=== PATIENT | male | born 1970 | race Hispanic/Latino ===

== ENCOUNTER 2017-12-24 10:19 | Inpatient (IN) | payer MEDICAID ==
[2017-12-24 10:33] VITALS: BMI 31.7
--- NOTE | 2017-12-24 10:55 | C.PDOC ---
History Of Present Illness 47 y/o male presents to the ED via ambulance, transferred from [place] for psychiatric admission for depression. On arrival patient appears to be resting comfortably, and is calm and cooperative. Patient was already medically cleared at [place] and accepted to inpatient psychiatric unit. No other complaints offered at this time. Time Seen by Provider: 12/24/17 10:22 Chief Complaint (Nursing): Medical Clearance History Per: Patient History/Exam Limitations: no limitations Onset/Duration Of Symptoms: Days Current Symptoms Are (Timing): Still Present Severity: Mild Past Medical History Reviewed: Historical Data, Nursing Documentation, Vital Signs Vital Signs: Last Vital Signs Temp 98 F 12/24/17 10:21 Pulse 66 12/24/17 10:21 Resp 18 12/24/17 10:21 BP 115/70 12/24/17 10:21 Pulse Ox 97 12/24/17 10:21 - Medical History PMH: Back Problems, Depression Denies: Chronic Kidney Disease Surgical History: Hernia Repair - [facility] Procedures GROUP PSYCHOTHERAPY (12/08/17) INDIVIDUAL PSYCHOTHERAPY, BEHAVIORAL (12/08/17) Family History: States: Unknown Family Hx - Social History Hx Alcohol Use: Yes (alcohol occassionally) Hx Substance Use: No Review Of Systems Constitutional: Negative for: Fever, Chills Gastrointestinal: Negative for: Nausea, Vomiting Psych: Positive for: Depression Physical Exam - Physical Exam Appears: Non-toxic, No Acute Distress Skin: Warm, Dry Head: Normacephalic Eye(s): bilateral: Normal Inspection Neck: Normal ROM Chest: Symmetrical Cardiovascular: Rhythm Regular Respiratory: Normal Breath Sounds Gastrointestinal/Abdominal: Normal Exam Extremity: Bilateral: Atraumatic, Normal Color And Temperature, Normal ROM (x4) Neurological/Psych: Oriented x3, Normal Speech, Other (Calm, cooperative) Gait: Unable To Assess ED Course And Treatment O2 Sat by Pulse Oximetry: 97 (RA) Pulse Ox Interpretation: Normal Progress Note: Transferred for Psych admission. 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 Garcia. Admit orders placed. Disposition Discussed With : Dutch Garcia Doctor Will See Patient In The: Hospital Counseled Patient/Family Regarding: Diagnosis - Disposition Disposition: HOSPITALIZED Disposition Time: 10:25 Condition: STABLE - POA Present On Arrival: None - Clinical Impression Clinical Impression: Depression - PA / [employer] / Resident Statement MD/DO has reviewed & agrees with the documentation as recorded. - Scribe Statement The provider has reviewed the documentation as recorded by the Scribe (Zuleyma Grimes) All medical record entries made by the Scribe were at my direction and personally dictated by me. I have reviewed the chart and agree that the record accurately reflects my personal performance of the history, physical exam, medical decision making, and the department course for this patient. I have also personally directed, reviewed, and agree with the discharge instructions and disposition. Decision To Admit - Pt Status Changed To: Hospital Disposition Of: Inpatient - Admit Certification Admit to Inpatient:: After my assessment, the patient will require hospitalization for at least two midnights. This is because of the severity of symptoms shown, intensity of services needed, and/or the medical risk in this patient being treated as an outpatient. - InPatient: Physician Admission Certification: I certify that this patient requires 2 or more midnights of care for the following reason:: Depression - . Bed Request Type: Psychiatry Admitting Physician: Dutch Garcia Patient Diagnosis: Depression
--- NOTE | 2017-12-24 10:55 | C.PDOC ---
Time Seen by Provider: 12/24/17 10:22 Chief Complaint (Nursing): Medical Clearance Past Medical History Vital Signs: Last Vital Signs Temp 98 F 12/24/17 10:21 Pulse 66 12/24/17 10:21 Resp 18 12/24/17 10:21 BP 115/70 12/24/17 10:21 Pulse Ox 97 12/24/17 10:21 - Medical History PMH: Back Problems, Depression Denies: Chronic Kidney Disease Surgical History: Hernia Repair - [facility] Procedures GROUP PSYCHOTHERAPY (12/08/17) INDIVIDUAL PSYCHOTHERAPY, BEHAVIORAL (12/08/17) Family History: States: Unknown Family Hx - Social History Hx Alcohol Use: Yes (alcohol occassionally) Hx Substance Use: No ED Course And Treatment O2 Sat by Pulse Oximetry: 97 Disposition - Disposition Disposition: HOSPITALIZED Decision To Admit - Pt Status Changed To: Hospital Disposition Of: Inpatient - Admit Certification Admit to Inpatient:: After my assessment, the patient will require hospitalization for at least two midnights. This is because of the severity of symptoms shown, intensity of services needed, and/or the medical risk in this patient being treated as an outpatient. - InPatient: Physician Admission Certification: I certify that this patient requires 2 or more midnights of care for the following reason:: Depression - . Bed Request Type: Psychiatry Admitting Physician: Dutch Garcia Patient Diagnosis: Depression
--- NOTE | 2017-12-24 11:13 | PCM.BM ---
<Dina Peralta - Last Filed: 12/24/17 11:12> Treatment Plan Problems - Problems identified on initial assessmt Depression Date Initiated: 12/24/17 Time Initiated: 11:12 Assessment reference: NA Status: Active Treatment assets and liabiliti Patient Assests: cooperative, insightful, motivated, self-reliant, good past tx response, cognitively intact Patient Liabilities: poor support system, relationship conflicts, substance abuse - Milieu Protocol Maintain good personal hygiene: daily Encourage regular showers, daily Remind patient to perform daily oral care, daily Assist patient to perform ADL's Maintain personal safety: every shift Educate patient to report safety concerns to staff, every shift Monitor environment for contraband/sharps Medication safety: Monitor for expected outcome, potential side effects: every shift, Assess barriers to learning: every shift, Assess readiness for medication education: every shift <Crispin Owusu - Last Filed: 12/25/17 10:30> - Diagnosis (1) Depression Status: Acute Interventions: 12/25/17 10:30 * Assess/adjust medications daily and /or as needed * See patient on an individual basis 7x/week to assess symptoms of depression * Monitor for side effects & effectiveness of medications * <Alis Hair - Last Filed: 12/25/17 11:34> Family Contact Family involvement: Family/SO is involved Family contact: Patient declines to allow family contact at present - Goals for Treatment Patient goals for treatment: "I need an outpatient program." Discharge/Continuing Care - Education Needs Education Needs: Patient Medication, Patient Coping Skills - Discharge Discharge Criteria: Tolerates medication w/o severe side effects, Reduction of target symptoms Discharge to:: Home, With Family - Treatment Team Participation Discussed with Family/SO: No Was Patient/Family/SO present at Treatment Team Meeting: Yes
[2017-12-24] MEDS ORDERED: Bacitracin 500 Units/gm Oint Foilpak UD TOP ONE (16:31)
[2017-12-24] MEDS ORDERED: Bacitracin Ointment 30 GM TUBE TOP PRN (18:00)
--- NOTE | 2017-12-24 23:35 | PCM.PSYCH ---
Initial Psychiatric Evaluation - Initial Psychiatric Evaluation Type of Admission: Voluntary Legal Status: Capacity History of Present Illness and Precipitating Events: Pt is a 47 year old male who is and has 2 children that are 24 and 28 years old. 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 He is currently living with his brother. Pt was transferred to [facility] from [place] for psychiatric admission for depression and suicidal ideation. Pt states he is here for depression. He was diagnosed with major depressive d/o at [facility] one month ago. He has trouble sleeping because he hears voices and see shadows in the night. During the day he sometimes hears the voices as well. His appetite is intact but he denies feeling guilty, having trouble concentrating, or losing interest in things. Pt states he is depressed about not seeing his children because they live in [place] and he is not in contact with them. He is feeling hopeless, helpless, and worthless. He reports suicidal ideations with a plan to cut his wrists. He almost had a suicide attempt one time in the past but was stopped by a friend. He denies any homicidal ideations. Pt also denies use of any substances including heroin, cocaine, or marijuana. He smokes 1 pack of cigarettes a day. Though he used to drink plenty of alcohol in the past, he states he does not as much anymore. He never went to detoxification or rehabilitation for the alcohol in the past. He was hospitalized for a psychiatric condition once in the past in [place]. His plan after his stay in the hospital is to go home and follow up with a therapist. Past medical history: Spinal stenosis, sciatica Allergies: Naproxen, Motrin Surgical history: Hernia repair, gastric bypass Legal history: Denies Psychiatric history: Major depressive d/o Family psychiatric history: Niece with depressive d/o unspecified Current Medications: Active Medications Generic Name Dose Route Start Last Admin Trade Name Freq PRN Reason Stop Dose Admin Bacitracin 1 gm 12/24/17 18:00 12/24/17 18:30 Bacitracin TOP 1 gm Q6H PRN Administration Abrasion Haloperidol 5 mg 12/24/17 12:30 Haldol PO Q4H PRN Agitation Hydroxyzine HCl 50 mg 12/24/17 12:30 Atarax PO Q6H PRN Anxiety Influenza Virus Vaccine 60 mcg 12/26/17 10:00 Fluzone Quad [id number] IM 12/26/17 10:01 .ONCE ONE Pneumococcal Polyvalent Vaccine 0.5 ml 12/26/17 10:00 Pneumovax 23 Vaccine IM 12/26/17 10:01 .ONCE ONE Trazodone HCl 100 mg 12/24/17 22:00 12/24/17 21:09 Desyrel PO 100 mg HS PRN Administration Insomnia Past Psychiatric History - Past Psychiatric History Previous Treatment History: Inpatient Pertinent Medical Hx (Current Medical&Sleep Prob, Allergies): Allergies Allergy/AdvReac Type Severity Reaction Status Date / Time ibuprofen Allergy ITCHING Verified 12/24/17 10:24 naproxen [From Naprosyn] Allergy ITCHING Verified 12/24/17 10:24 traZODone [Desyrel] 200 mg PO HS 30 Days #60 tab 12/14/17 Review of Systems - Review of Systems All systems: reviewed and no additional remarkable complaints except - Psychiatric Psychiatric: Anxiety, Auditory Hallucinations, Depression, Hopelessness, Irritability, Suicidal Ideation Mental Status Examination - Personal Presentation Personal Presentation: Looks stated age - Affect Affect: Constricted, Depressed - Motor Activity Motor Activity: Calm - Reliability in Providing Information Reliability in Providing Information: Fair - Speech Speech: Disorganized - Mood Mood: Depressed, Anxious - Formal Thought Process Formal Thought Process: Hallucinations, Delusions, Paranoia - Hallucinations/Delusions Hallucinations: Auditory Delusions: Persecution - Obsessions/Compulsions Obsessions: No Compulsions: No - Cognitive Functions Orientation: Person, Place, Situation, Time Sensorium: Alert Attention/Concentration: Attentive Abstract Thinking: [place] Estimate of Intelligence: Below average Judgement: Imparied, as evidence by: Poor judgement, Imparied, as evidence by: Lack of insight into illness - Risk Risk: Suicidal, Diminished functioning - Limitations Limitations: Living alone DSM 5 DX - DSM 5 DSM 5 Diagnosis: Major depressive disorder recurrent severe with psychotic features - Recommended/Plan of Treatment Treatment Recommendations and Plan of Treatment: Major depressive disorder recurrent severe with psychotic features CBT Psychoeducation Supportive therapy, group therapy, individual therapy Hydroxyzine 25 mg by mouth every 6 hours when necessary Seroquel 50 mg PO QHS Trazodone 50 mg Wellbutrin 75 mg po Daily
--- NOTE | 2017-12-25 10:30 | PCM.PYCHPN ---
Psychiatric Progress Note - Psychiatric Progress Note Patient seen today, length of contact: 15 min Patient Chief Complaint: I am feeling depressed. Problems Identified/Issues Discussed: Patient seen and evaluated, chart reviewed and discussed with the nurse. Pt reports depressed mood, and reports feelings of hopelessness and helplessness. He remained isolated and withdrawn, and confined to his room. He reports auditory hallucinations, and paranoia. He appears paranoid and delusional. Patient is compliant with medications and denies any side effects. Symptoms are improving but pt needs more time to stabilize. Support and psychoeducation given. Medication Change: Yes Medical Record Reviewed: Yes Mental Status Examination - Cognitive Function Orientation: Person, Place, Situation, Time Memory: Intact Attention: WNL Concentration: Poor Association: WNL Fund of Knowledge: Poor - Mood Mood: Depressed, Anxious - Affect Affect: Constricted, Depressed - Speech Speech: Soft - Formal Thought Process Formal Thought Process: Hallucinations, Delusions, Paranoia - Suicidal Ideation Suicidal Ideation: No - Homicidal Ideation Homicidal Ideation: No Goal/Treatment Plan - Goal/Treatment Plan Need for Continued Stay: Severe depression anxiety, Severe functional impairment Progress Toward Problem(s) and Goals/Treatment Plan: Major depressive disorder recurrent severe with psychotic features CBT Psychoeducation Supportive therapy, group therapy, individual therapy Hydroxyzine 25 mg by mouth every 6 hours when necessary DC Seroquel 100 mg PO QHS Trazodone 100 mg Wellbutrin 75 mg po Daily Olanzapine 5 mg HS
[2017-12-26] MEDS ORDERED: Pneumococcal 23-Valent Vaccine IM ONE (10:00)
[2017-12-26] MEDS ORDERED: Influenza Vaccine 60 MCG/0.5 ML SYR (3 yr & up) IM ONE (10:00)
[2017-12-26 12:49] LABS: ALBUMIN 3.1 g/dL (3.5-5.0); ALT/SGPT 33 U/L (21-72); AST/SGOT 36 U/L (17-59); BLOOD UREA NITROGEN 15 mg/dL (9-20); CALCIUM 8.2 mg/dl (8.6-10.4); GFR NON-AFRICAN AMERICAN > 60
[2017-12-26 12:56] LABS: BASO # 0.1 K/uL (0.0-0.2); BASO % 0.9 % (0.0-2.0); EOS # 0.1 K/uL (0.0-0.7); EOS % 2.3 % (0.0-4.0); HEMOGLOBIN 11.2 g/dL (12.0-18.0); LYMPH # 0.7 K/uL (1.0-4.3); LYMPH % 11.7 % (20.0-40.0); MEAN CELL VOLUME 83.7 fL (80.0-94.0); MEAN CORPUSCULAR HEMOGLOBIN 27.8 pg (27.0-31.0); MEAN CORPUSCULAR HGB CONC 33.2 g/dL (33.0-37.0); MEAN PLATELET VOLUME 7.6 fL (7.2-11.7); MONO # 0.6 K/uL (0.0-0.8); MONO % 9.7 % (0.0-10.0); NEUT # 4.6 K/uL (1.8-7.0); NEUT % 75.4 % (50.0-75.0); RBC 4.01 Mil/uL (4.40-5.90); RED CELL DISTRIBUTION WIDTH 18.9 % (11.5-14.5); WHITE BLOOD COUNT 6.2 K/uL (4.8-10.8)
--- NOTE | 2017-12-26 14:44 | CP.PCM.CON ---
<Florin Hannah - Last Filed: 12/26/17 14:39> History of Present Illness - History of Present Illness History of Present Illness: Florin Hannah PGY1 Consult Note for Dr. Mahmood Pt is a 47yo M with no PMH admitted for treatment of depression w/psychotic features. Pt reports a wound on the left elbow x2 days. He reports it started out as red and then began burning. He now reports associated white pus draining from the elbow. He denies trauma or previous abrasion in the area. He denies fever, chills, abdominal pain, nausea, vomiting, chest pain, shorteness of breath. SxH: hernia repoair, gastric bypass SocH: 5 pack/yr smoking history, occasional etoh use, denies drug use Allergies: naproxen and asa --> hives PMD: none Review of Systems - Review of Systems Review of Systems: as per HPI Past Patient History - Infectious Disease Hx of Infectious Diseases: None - Tetanus Immunizations Tetanus Immunization: Unknown - Past Medical History & Family History Past Medical History?: Yes - Past Social History Smoking Status: Heavy Smoker > 10 Cigarettes Daily - CARDIAC Hx Cardiac Disorders: No - PULMONARY Hx Respiratory Disorders: No - NEUROLOGICAL Hx Neurological Disorder: No - HEENT Hx HEENT Problems: No - RENAL Hx Chronic Kidney Disease: No - ENDOCRINE/METABOLIC Hx Endocrine Disorders: No - HEMATOLOGICAL/ONCOLOGICAL Hx Blood Disorders: No - INTEGUMENTARY Hx Dermatological Problems: No - MUSCULOSKELETAL/RHEUMATOLOGICAL Hx Musculoskeletal Disorders: Yes Hx Spinal Stenosis: Yes Other/Comment: spinal stenosis - GASTROINTESTINAL Hx Gastrointestinal Disorders: No - GENITOURINARY/GYNECOLOGICAL Hx Genitourinary Disorders: No - PSYCHIATRIC Hx Substance Use: No - SURGICAL HISTORY Hx Surgeries: Yes Hx Herniorrhaphy: Yes Hx Orthopedic Surgery: Yes (rt shoulder) - ANESTHESIA Hx Anesthesia: Yes Hx Anesthesia Reactions: No Meds Allergies/Adverse Reactions: Allergies Allergy/AdvReac Type Severity Reaction Status Date / Time ibuprofen Allergy ITCHING Verified 12/24/17 10:24 naproxen [From Naprosyn] Allergy ITCHING Verified 12/24/17 10:24 - Medications Medications: Current Medications Aripiprazole (Abilify) 15 mg PO DAILY [facility] Bacitracin (Bacitracin) 1 gm TOP Q6H PRN PRN Reason: Abrasion Last Admin: 12/24/17 18:30 Dose: 1 gm Bupropion HCl (Wellbutrin) 150 mg PO DAILY [facility] Last Admin: 12/26/17 09:12 Dose: 150 mg Clindamycin HCl (Cleocin) 600 mg PO TID [facility]; Protocol Haloperidol (Haldol) 5 mg PO Q4H PRN PRN Reason: Agitation Last Admin: 12/25/17 09:33 Dose: 5 mg Hydroxyzine HCl (Atarax) 50 mg PO Q6H PRN PRN Reason: Anxiety Last Admin: 12/25/17 09:33 Dose: 50 mg Trazodone HCl (Desyrel) 100 mg PO HS PRN PRN Reason: Insomnia Last Admin: 12/25/17 21:28 Dose: 100 mg Physical Exam - Constitutional Appears: Well, No Acute Distress - Head Exam Head Exam: ATRAUMATIC, NORMOCEPHALIC - Eye Exam Eye Exam: EOMI, Normal appearance Pupil Exam: NORMAL ACCOMODATION - ENT Exam ENT Exam: Mucous Membranes Moist, Normal Exam - Neck Exam Neck exam: Positive for: Normal Inspection - Respiratory Exam Respiratory Exam: Clear to Auscultation Bilateral, NORMAL BREATHING PATTERN. absent: Rales, Rhonchi, Wheezes - Cardiovascular Exam Cardiovascular Exam: REGULAR RHYTHM, +S1, +S2. absent: Gallop, Rubs, Systolic Murmur - GI/Abdominal Exam GI & Abdominal Exam: Normal Bowel Sounds, Soft. absent: Distended, Firm, Tenderness - Extremities Exam Additional comments: LUE: erythematous, edematous abscess on L elbow with 4 punctums draining white pus. warm to touch. - Neurological Exam Neurological exam: Alert, Oriented x3 Results - Vital Signs Recent Vital Signs: Last Vital Signs Temp 97.6 F 12/26/17 06:43 Pulse 57 L 12/26/17 06:43 Resp 19 12/26/17 06:43 BP 102/62 12/26/17 06:43 Pulse Ox 97 12/24/17 16:18 - Labs Result Diagrams: 12/26/17 12:30 12/26/17 12:30 Labs: Laboratory Results - last 24 hr 12/26/17 12/26/17 12:30 12:30 WBC 6.2 RBC 4.01 L Hgb 11.2 L Hct 33.6 L MCV 83.7 MCH 27.8 MCHC 33.2 RDW 18.9 H Plt Count 279 MPV 7.6 Neut % (Auto) 75.4 H Lymph % (Auto) 11.7 L Pershing % (Auto) 9.7 Eos % (Auto) 2.3 Baso % (Auto) 0.9 Neut # (Auto) 4.6 Lymph # (Auto) 0.7 L Pershing # (Auto) 0.6 Eos # (Auto) 0.1 Baso # (Auto) 0.1 Sodium 132 Potassium 4.2 Chloride 104 Carbon Dioxide 19 L Anion Gap 13 BUN 15 Creatinine 0.8 Est GFR ( Amer) > 60 Est GFR (Non-Af Amer) > 60 Random Glucose 221 H Calcium 8.2 L Phosphorus 3.0 Magnesium 1.7 Total Bilirubin 0.3 AST 36 ALT 33 Alkaline Phosphatase 76 Total Protein 6.0 L Albumin 3.1 L Globulin 3.0 Albumin/Globulin Ratio 1.0 Assessment & Plan - Assessment and Plan (Free Text) Assessment: 43yo M with no PMH admitted for psychiatric treatment with L elbow wound, medicine consulted for evaluation. Plan: Carbuncle - L elbow, draining white pus - pt afebrile, no leukocytosis - wound Cx: MRSA, sensitive to clinda - start clinda 600mg PO TID - f/u AM CBC - Gen Sx consulted: Dr. Lloyd Psychiatric History - continue with psychiatric meds and care Pt seen and case reviewed with Dr. Mahmood <Hannah Mahmood - Last Filed: 12/26/17 15:40> Meds - Medications Medications: Current Medications Aripiprazole (Abilify) 15 mg PO DAILY [facility] Bacitracin (Bacitracin) 1 gm TOP Q6H PRN PRN Reason: Abrasion Last Admin: 12/24/17 18:30 Dose: 1 gm Bupropion HCl (Wellbutrin) 150 mg PO DAILY [facility] Last Admin: 12/26/17 09:12 Dose: 150 mg Clindamycin HCl (Cleocin) 600 mg PO TID [facility]; Protocol Haloperidol (Haldol) 5 mg PO Q4H PRN PRN Reason: Agitation Last Admin: 12/25/17 09:33 Dose: 5 mg Hydroxyzine HCl (Atarax) 50 mg PO Q6H PRN PRN Reason: Anxiety Last Admin: 12/25/17 09:33 Dose: 50 mg Trazodone HCl (Desyrel) 100 mg PO HS PRN PRN Reason: Insomnia Last Admin: 12/25/17 21:28 Dose: 100 mg Results - Vital Signs Recent Vital Signs: Last Vital Signs Temp 97.6 F 12/26/17 06:43 Pulse 57 L 12/26/17 06:43 Resp 19 12/26/17 06:43 BP 102/62 12/26/17 06:43 Pulse Ox 97 12/24/17 16:18 - Labs Result Diagrams: 12/26/17 12:30 12/26/17 12:30 Labs: Laboratory Results - last 24 hr 12/26/17 12/26/17 12:30 12:30 WBC 6.2 RBC 4.01 L Hgb 11.2 L Hct 33.6 L MCV 83.7 MCH 27.8 MCHC 33.2 RDW 18.9 H Plt Count 279 MPV 7.6 Neut % (Auto) 75.4 H Lymph % (Auto) 11.7 L Pershing % (Auto) 9.7 Eos % (Auto) 2.3 Baso % (Auto) 0.9 Neut # (Auto) 4.6 Lymph # (Auto) 0.7 L Pershing # (Auto) 0.6 Eos # (Auto) 0.1 Baso # (Auto) 0.1 Sodium 132 Potassium 4.2 Chloride 104 Carbon Dioxide 19 L Anion Gap 13 BUN 15 Creatinine 0.8 Est GFR ( Amer) > 60 Est GFR (Non-Af Amer) > 60 Random Glucose 221 H Calcium 8.2 L Phosphorus 3.0 Magnesium 1.7 Total Bilirubin 0.3 AST 36 ALT 33 Alkaline Phosphatase 76 Total Protein 6.0 L Albumin 3.1 L Globulin 3.0 Albumin/Globulin Ratio 1.0 Attending/Attestation - Attestation I have personally seen and examined this patient.: Yes I have fully participated in the care of the patient.: Yes I have reviewed all pertinent clinical information: Yes Notes (Text): Seen and examined patient has elbow abscess,need to be drained no fever,no h/o trauma Start on clindamycin we will follow
--- NOTE | 2017-12-26 14:59 | RAD ---
Date of service: 12/26/2017 PROCEDURE: Radiographs of the left elbow. HISTORY: wound draining COMPARISON: No prior. FINDINGS: BONES: No acute displaced fracture nor dislocation. No obvious cortical destructive changes there is a very small osteophyte and/or enthesophyte seen arising from the lateral epicondyle.. JOINTS: Suspect minimal osteoarthritis. SOFT TISSUES: There is mild soft tissue swelling over the olecranon possibly representing a olecranon bursitis. No subcutaneous emphysema JOINT EFFUSION: None. OTHER FINDINGS: None IMPRESSION: There is mild soft tissue swelling over the olecranon possibly representing a olecranon bursitis. No subcutaneous emphysema
--- NOTE | 2017-12-26 23:11 | CP.PCM.CON ---
<Sasha Valdovinos - Last Filed: 12/26/17 23:05> History of Present Illness - History of Present Illness History of Present Illness: Surgery Consult: Dr. Lloyd Pt is a 47M with PMHx significant for depression who is currently admitted to the psych unit at . Pt states that 3 days ago he noticed some redness and swelling around his left elbow, which eventually became very painful. Pt describ es it as a small pimple that eventually got bigger and more swollen. He also noticed purulent discharge from the area. Pt denies any trauma to his elbow and states he has never had this happen before. Surgery consulted to evaluate. Wound cultures obtained from the purulent fluid show +MRSA. Currently, pt is comfortable and states pain is well controlled. States it has been draining spontaneously and denies any fevers/chills, nausea/vomiting, chest pain or SOB. PMHx: depression PSHx: gastric bypass & incisional hernia repair, R shoulder sx SocialHx: 1/2PPD x 10+ yrs, occasional EtOH, denies drugs ALL: ibuprofen/naproxen (hives) Review of Systems - Review of Systems All systems: reviewed and no additional remarkable complaints except (as per HPI) Past Patient History - Infectious Disease Hx of Infectious Diseases: None - Tetanus Immunizations Tetanus Immunization: Unknown - Past Medical History & Family History Past Medical History?: Yes - Past Social History Smoking Status: Heavy Smoker > 10 Cigarettes Daily - CARDIAC Hx Cardiac Disorders: No - PULMONARY Hx Respiratory Disorders: No - NEUROLOGICAL Hx Neurological Disorder: No - HEENT Hx HEENT Problems: No - RENAL Hx Chronic Kidney Disease: No - ENDOCRINE/METABOLIC Hx Endocrine Disorders: No - HEMATOLOGICAL/ONCOLOGICAL Hx Blood Disorders: No - INTEGUMENTARY Hx Dermatological Problems: No - MUSCULOSKELETAL/RHEUMATOLOGICAL Hx Musculoskeletal Disorders: Yes Hx Spinal Stenosis: Yes Other/Comment: spinal stenosis - GASTROINTESTINAL Hx Gastrointestinal Disorders: No - GENITOURINARY/GYNECOLOGICAL Hx Genitourinary Disorders: No - PSYCHIATRIC Hx Depression: Yes Hx Substance Use: No - SURGICAL HISTORY Hx Surgeries: Yes Hx Herniorrhaphy: Yes Hx Orthopedic Surgery: Yes (rt shoulder) - ANESTHESIA Hx Anesthesia: Yes Hx Anesthesia Reactions: No Meds Allergies/Adverse Reactions: Allergies Allergy/AdvReac Type Severity Reaction Status Date / Time ibuprofen Allergy ITCHING Verified 12/24/17 10:24 naproxen [From Naprosyn] Allergy ITCHING Verified 12/24/17 10:24 - Medications Medications: Current Medications Aripiprazole (Abilify) 15 mg PO DAILY [facility] Bacitracin (Bacitracin) 1 gm TOP Q6H PRN PRN Reason: Abrasion Last Admin: 12/24/17 18:30 Dose: 1 gm Bupropion HCl (Wellbutrin) 150 mg PO DAILY [facility] Last Admin: 12/26/17 09:12 Dose: 150 mg Clindamycin HCl (Cleocin) 600 mg PO TID [facility]; Protocol Last Admin: 12/26/17 17:15 Dose: 600 mg Haloperidol (Haldol) 5 mg PO Q4H PRN PRN Reason: Agitation Last Admin: 12/25/17 09:33 Dose: 5 mg Hydroxyzine HCl (Atarax) 50 mg PO Q6H PRN PRN Reason: Anxiety Last Admin: 12/25/17 09:33 Dose: 50 mg Trazodone HCl (Desyrel) 100 mg PO HS PRN PRN Reason: Insomnia Last Admin: 12/26/17 21:35 Dose: 100 mg Physical Exam - Constitutional Appears: Well, No Acute Distress - Head Exam Head Exam: ATRAUMATIC, NORMOCEPHALIC - Eye Exam Eye Exam: Normal appearance - ENT Exam ENT Exam: Mucous Membranes Moist - Respiratory Exam Respiratory Exam: NORMAL BREATHING PATTERN - Cardiovascular Exam Cardiovascular Exam: RRR - Extremities Exam Additional comments: left elbow with erythema & fluctuant 4x5 cm abscess with surrounding induration; purulent drainage noted. Tender to palpation. Range of motion intact at the elbow - Neurological Exam Neurological exam: Alert, Oriented x3 - Skin Skin Exam: Dry, Warm Results - Vital Signs Recent Vital Signs: Last Vital Signs Temp 97.6 F 12/26/17 06:43 Pulse 69 12/26/17 15:59 Resp 19 12/26/17 06:43 BP 103/65 12/26/17 15:59 Pulse Ox 97 12/24/17 16:18 - Labs Result Diagrams: 12/26/17 12:30 12/26/17 12:30 Labs: Laboratory Results - last 24 hr 12/26/17 12/26/17 12:30 12:30 WBC 6.2 RBC 4.01 L Hgb 11.2 L Hct 33.6 L MCV 83.7 MCH 27.8 MCHC 33.2 RDW 18.9 H Plt Count 279 MPV 7.6 Neut % (Auto) 75.4 H Lymph % (Auto) 11.7 L [place] % (Auto) 9.7 Eos % (Auto) 2.3 Baso % (Auto) 0.9 Neut # (Auto) 4.6 Lymph # (Auto) 0.7 L [place] # (Auto) 0.6 Eos # (Auto) 0.1 Baso # (Auto) 0.1 Sodium 132 Potassium 4.2 Chloride 104 Carbon Dioxide 19 L Anion Gap 13 BUN 15 Creatinine 0.8 Est GFR ( Amer) > 60 Est GFR (Non-Af Amer) > 60 Random Glucose 221 H Calcium 8.2 L Phosphorus 3.0 Magnesium 1.7 Total Bilirubin 0.3 AST 36 ALT 33 Alkaline Phosphatase 76 Total Protein 6.0 L Albumin 3.1 L Globulin 3.0 Albumin/Globulin Ratio 1.0 - Imaging and Cardiology X-ray left elbow Status: Image reviewed by me, Report reviewed by me Assessment & Plan - Assessment and Plan (Free Text) Assessment: 47M with abscess of L elbow; possible olecranon bursitis Plan: - cont Clinda 600mg PO - recommend eval by ortho for drainage and further recs - MRI of the elbow to r/o osteomyelitis - d/w Dr. Lloyd <Nic Lloyd - Last Filed: 01/02/18 19:40> Meds - Medications Medications: Current Medications Aripiprazole (Abilify) 15 mg PO DAILY [facility] Last Admin: 01/02/18 10:06 Dose: 15 mg Bacitracin (Bacitracin) 1 gm TOP Q6H PRN PRN Reason: Abrasion Last Admin: 12/24/17 18:30 Dose: 1 gm Bupropion HCl (Wellbutrin) 150 mg PO DAILY [facility] Last Admin: 01/02/18 10:07 Dose: 150 mg Clindamycin HCl (Cleocin) 300 mg PO TID [facility]; Protocol Stop: 01/08/18 23:55 Last Admin: 01/02/18 18:22 Dose: 300 mg Emollient Ointment (Vaseline Oint) 5 gm TOP Q4H PRN PRN Reason: Dry skin Last Admin: 01/01/18 12:15 Dose: 5 gm Folic Acid (Folic Acid) 1 mg PO DAILY [facility] Last Admin: 01/02/18 10:07 Dose: 1 mg Gabapentin (Neurontin) 300 mg PO BID [facility] Last Admin: 01/02/18 18:22 Dose: 300 mg Haloperidol (Haldol) 5 mg PO Q4 PRN PRN Reason: Agitation Hydroxyzine HCl (Atarax) 50 mg PO Q6 PRN PRN Reason: Anxiety Multivitamins (Hexavitamin) 1 tab PO DAILY [facility] Last Admin: 01/02/18 10:07 Dose: 1 tab Nicotine (Nicoderm Cq) 1 patch TD DAILY [facility] Last Admin: 01/02/18 10:06 Dose: 1 patch Oxycodone/Acetaminophen (Percocet 5/325 Mg Tab) 1 tab PO Q4H PRN PRN Reason: Pain Stop: 01/03/18 21:02 Last Admin: 01/02/18 14:54 Dose: 1 tab Saccharomyces Boulardii (Florastor) 250 mg PO BID [facility] Last Admin: 01/02/18 18:22 Dose: 250 mg Thiamine HCl (Vitamin B1 Tab) 100 mg PO DAILY [facility] Last Admin: 01/02/18 10:12 Dose: 100 mg Trazodone HCl (Desyrel) 150 mg PO HS PRN PRN Reason: Insomnia Last Admin: 01/01/18 22:13 Dose: 150 mg Vitamin A (Vitamin A & D Oint Ud Foilpak) 1 ea TOP Q8 PRN PRN Reason: Dry skin Results - Vital Signs Recent Vital Signs: Last Vital Signs Temp 97.8 F 01/02/18 15:00 Pulse 84 01/02/18 15:00 Resp 20 01/02/18 15:00 BP 105/73 01/02/18 15:00 Pulse Ox 97 01/02/18 15:00 - Labs Result Diagrams: 01/02/18 08:11 01/02/18 08:11 Labs: Laboratory Results - last 24 hr 01/01/18 01/01/18 01/01/18 17:39 21:29 21:30 WBC RBC Hgb Hct MCV MCH MCHC RDW Plt Count MPV ESR Sodium Potassium Chloride Carbon Dioxide Anion Gap BUN Creatinine Est GFR ( Amer) Est GFR (Non-Af Amer) POC Glucose (mg/dL) 131 H 64 L 64 L Random Glucose Calcium Total Bilirubin AST ALT Alkaline Phosphatase Total Protein Albumin Globulin Albumin/Globulin Ratio 11/16/18 11/17/18 11/17/18 22:00 06:59 08:11 WBC 3.3 L RBC 4.33 L Hgb 11.9 L Hct 36.1 MCV 83.3 MCH 27.5 MCHC 33.0 RDW 19.4 H Plt Count 287 MPV 7.5 ESR 28 H Sodium Potassium Chloride Carbon Dioxide Anion Gap BUN Creatinine Est GFR ( Amer) Est GFR (Non-Af Amer) POC Glucose (mg/dL) 207 H 91 Random Glucose Calcium Total Bilirubin AST ALT Alkaline Phosphatase Total Protein Albumin Globulin Albumin/Globulin Ratio 01/02/18 01/02/18 01/02/18 08:11 11:51 16:29 WBC RBC Hgb Hct MCV MCH MCHC RDW Plt Count MPV ESR Sodium 136 Potassium 3.7 Chloride 101 Carbon Dioxide 22 Anion Gap 16 BUN 11 Creatinine 0.8 Est GFR ( Amer) > 60 Est GFR (Non-Af Amer) > 60 POC Glucose (mg/dL) 94 100 Random Glucose 51 L Calcium 8.6 Total Bilirubin 0.2 AST 58 ALT 52 Alkaline Phosphatase 80 Total Protein 6.5 Albumin 3.4 L Globulin 3.1 Albumin/Globulin Ratio 1.1 Attending/Attestation - Attestation I have personally seen and examined this patient.: Yes I have fully participated in the care of the patient.: Yes I have reviewed all pertinent clinical information: Yes Notes (Text): Pt was seen and examined at bedside Agree with above note and assessment Pt with PMH of Depression and left elbow wound and drainage Left elbow: Cellulitis with Open draining wound Ass: Left elbow infected Olecranon Bursitis Plan : Orthopedic consult MRI of elbow IV antibiotics Local wound care Plan d.w pt in detail Risk and benefit explained in detail.
[2017-12-27 09:46] LABS: BASO # 0.1 K/uL (0.0-0.2); BASO % 1.5 % (0.0-2.0); EOS # 0.1 K/uL (0.0-0.7); EOS % 2.2 % (0.0-4.0); HEMOGLOBIN 12.3 g/dL (12.0-18.0); LYMPH # 0.6 K/uL (1.0-4.3); MEAN CELL VOLUME 83.1 fL (80.0-94.0); MEAN CORPUSCULAR HEMOGLOBIN 27.7 pg (27.0-31.0); MEAN CORPUSCULAR HGB CONC 33.3 g/dL (33.0-37.0); MONO # 0.8 K/uL (0.0-0.8); MONO % 14.1 % (0.0-10.0); NEUT # 4.1 K/uL (1.8-7.0); NEUT % 72.2 % (50.0-75.0); RBC 4.43 Mil/uL (4.40-5.90); RED CELL DISTRIBUTION WIDTH 19.7 % (11.5-14.5); WHITE BLOOD COUNT 5.6 K/uL (4.8-10.8)
--- NOTE | 2017-12-27 12:41 | CP.PCM.PN ---
Objective - Vital Signs/Intake and Output Vital Signs (last 24 hours): Temp Pulse Resp BP Pulse Ox 97.5 F L 70 20 110/73 100 12/27/17 06:00 12/27/17 06:00 12/27/17 06:00 12/27/17 06:00 12/27/17 06:00 - Medications Medications: Current Medications Acetaminophen (Tylenol 325mg Tab) 650 mg PO Q6 PRN PRN Reason: Pain and Fever Aripiprazole (Abilify) 15 mg PO DAILY [facility] Last Admin: 12/27/17 10:08 Dose: 15 mg Bacitracin (Bacitracin) 1 gm TOP Q6H PRN PRN Reason: Abrasion Last Admin: 12/24/17 18:30 Dose: 1 gm Bupropion HCl (Wellbutrin) 150 mg PO DAILY [facility] Last Admin: 12/27/17 09:59 Dose: 150 mg Clindamycin HCl (Cleocin) 600 mg PO TID [facility]; Protocol Last Admin: 12/27/17 09:57 Dose: 600 mg Haloperidol (Haldol) 5 mg PO Q4H PRN PRN Reason: Agitation Last Admin: 12/25/17 09:33 Dose: 5 mg Hydroxyzine HCl (Atarax) 50 mg PO Q6H PRN PRN Reason: Anxiety Last Admin: 12/25/17 09:33 Dose: 50 mg Trazodone HCl (Desyrel) 100 mg PO HS PRN PRN Reason: Insomnia Last Admin: 12/26/17 21:35 Dose: 100 mg - Labs Labs: 12/27/17 09:40 12/26/17 12:30
--- NOTE | 2017-12-27 15:54 | CP.PCM.PN ---
<Shelia Patton - Last Filed: 12/27/17 17:01> Subjective - Date & Time of Evaluation Date of Evaluation: 12/27/17 Time of Evaluation: 08:00 - Subjective Subjective: General surgery progress note for Dr. Lloyd pt seen and examined this AM. Pt states that pain is mildly improved since yesterday. Denies any decreased ROM, numbness, tingling, or any other complaints Objective - Vital Signs/Intake and Output Vital Signs (last 24 hours): Temp Pulse Resp BP Pulse Ox 97.5 F L 70 20 110/73 100 12/27/17 06:00 12/27/17 06:00 12/27/17 06:00 12/27/17 06:00 12/27/17 06:00 - Medications Medications: Current Medications Acetaminophen (Tylenol 325mg Tab) 650 mg PO Q6 PRN PRN Reason: Pain and Fever Aripiprazole (Abilify) 15 mg PO DAILY [facility] Last Admin: 12/27/17 10:08 Dose: 15 mg Bacitracin (Bacitracin) 1 gm TOP Q6H PRN PRN Reason: Abrasion Last Admin: 12/24/17 18:30 Dose: 1 gm Bupropion HCl (Wellbutrin) 150 mg PO DAILY [facility] Last Admin: 12/27/17 09:59 Dose: 150 mg Clindamycin HCl (Cleocin) 600 mg PO TID [facility]; Protocol Last Admin: 12/27/17 14:16 Dose: 600 mg Haloperidol (Haldol) 5 mg PO Q4H PRN PRN Reason: Agitation Last Admin: 12/25/17 09:33 Dose: 5 mg Hydroxyzine HCl (Atarax) 50 mg PO Q6H PRN PRN Reason: Anxiety Last Admin: 12/25/17 09:33 Dose: 50 mg Trazodone HCl (Desyrel) 100 mg PO HS PRN PRN Reason: Insomnia Last Admin: 12/26/17 21:35 Dose: 100 mg - Labs Labs: 12/27/17 09:40 12/26/17 12:30 - Constitutional Appears: Well, Non-toxic, No Acute Distress - Head Exam Head Exam: ATRAUMATIC, NORMOCEPHALIC - Eye Exam Eye Exam: Normal appearance. absent: Conjunctival injection, Scleral icterus - ENT Exam ENT Exam: Mucous Membranes Moist, Normal Oropharynx - Respiratory Exam Respiratory Exam: NORMAL BREATHING PATTERN. absent: Accessory Muscle Use, Respiratory Distress - Cardiovascular Exam Cardiovascular Exam: RRR - GI/Abdominal Exam GI & Abdominal Exam: absent: Distended - Extremities Exam Additional comments: posterior left elbow erythematous with swollen area indurated with oozing spots of purulent fluid - Neurological Exam Neurological Exam: Alert, Awake, Oriented x3 - Psychiatric Exam Psychiatric exam: Normal Affect, Normal Mood - Skin Skin Exam: Dry, Normal Color, Warm Assessment and Plan - Assessment and Plan (Free Text) Assessment: 47M with abscess of left elbow Plan: Recommend admission to the medical surgical department IV clindamycin MRI of the elbow to assess for depth of infection and involved structures F/U ortho consult for possible joint involvement warm compresses No surgical intervention planned at this time--patient needs MRI and ortho evaluation prior to any intervention Discussed with Dr. Gabino Patton, PGY2 <Nic Lloyd - Last Filed: 01/02/18 19:54> Objective - Vital Signs/Intake and Output Vital Signs (last 24 hours): Temp Pulse Resp BP Pulse Ox 97.8 F 84 20 105/73 97 01/02/18 15:00 01/02/18 15:00 01/02/18 15:00 01/02/18 15:00 01/02/18 15:00 - Medications Medications: Current Medications Aripiprazole (Abilify) 15 mg PO DAILY [facility] Last Admin: 01/02/18 10:06 Dose: 15 mg Bacitracin (Bacitracin) 1 gm TOP Q6H PRN PRN Reason: Abrasion Last Admin: 12/24/17 18:30 Dose: 1 gm Bupropion HCl (Wellbutrin) 150 mg PO DAILY [facility] Last Admin: 01/02/18 10:07 Dose: 150 mg Clindamycin HCl (Cleocin) 300 mg PO TID [facility]; Protocol Stop: 01/08/18 23:55 Last Admin: 01/02/18 18:22 Dose: 300 mg Emollient Ointment (Vaseline Oint) 5 gm TOP Q4H PRN PRN Reason: Dry skin Last Admin: 01/01/18 12:15 Dose: 5 gm Folic Acid (Folic Acid) 1 mg PO DAILY [facility] Last Admin: 01/02/18 10:07 Dose: 1 mg Gabapentin (Neurontin) 300 mg PO BID [facility] Last Admin: 01/02/18 18:22 Dose: 300 mg Haloperidol (Haldol) 5 mg PO Q4 PRN PRN Reason: Agitation Hydroxyzine HCl (Atarax) 50 mg PO Q6 PRN PRN Reason: Anxiety Multivitamins (Hexavitamin) 1 tab PO DAILY [facility] Last Admin: 01/02/18 10:07 Dose: 1 tab Nicotine (Nicoderm Cq) 1 patch TD DAILY [facility] Last Admin: 01/02/18 10:06 Dose: 1 patch Oxycodone/Acetaminophen (Percocet 5/325 Mg Tab) 1 tab PO Q4H PRN PRN Reason: Pain Stop: 01/03/18 21:02 Last Admin: 01/02/18 14:54 Dose: 1 tab Saccharomyces Boulardii (Florastor) 250 mg PO BID [facility] Last Admin: 01/02/18 18:22 Dose: 250 mg Thiamine HCl (Vitamin B1 Tab) 100 mg PO DAILY [facility] Last Admin: 01/02/18 10:12 Dose: 100 mg Trazodone HCl (Desyrel) 150 mg PO HS PRN PRN Reason: Insomnia Last Admin: 01/01/18 22:13 Dose: 150 mg Vitamin A (Vitamin A & D Oint Ud Foilpak) 1 ea TOP Q8 PRN PRN Reason: Dry skin - Labs Labs: 01/02/18 08:11 01/02/18 08:11 PT 12.0 SECONDS (9.7-12.2) 12/28/17 11:56 INR 1.1 12/28/17 11:56 APTT 36 SECONDS (21-34) H 12/28/17 11:56 Attending/Attestation - Attestation I have personally seen and examined this patient.: Yes I have fully participated in the care of the patient.: Yes I have reviewed all pertinent clinical information, including history, physical exam and plan: Yes Notes (Text): Pt was seen and examined at bedside Agree with above note and assessment Awaiting MRI of elbow Orthopedic consult IV antibiotics Local wound care Plan d.w pt in detail Risk and benefit explained in detail. Note Date: 12/28/17 MRI of Elbow reviewed Pt would need I & D of Elbow abscess Spoke to ( Orthopedic surgeon) for possible I & D of Olecranon bursitis with abscess Consent OR for I & D of abscess Consent NPO, IVF Plan d.w pt in detail Risk and benefit explained in detail.
--- NOTE | 2017-12-27 16:10 | CP.PCM.PN ---
Subjective - Date & Time of Evaluation Date of Evaluation: 12/27/17 Time of Evaluation: 03:00 - Subjective Subjective: Florin Hannah PGY1 Progress Note Pt examined at bedside this morning. He had no complaints, just mild discomfort at the L elbow. Pt denied shortness of breath, fever, chills, abdominal pain, nausea, vomiting, diarrhea. Objective - Vital Signs/Intake and Output Vital Signs (last 24 hours): Temp Pulse Resp BP Pulse Ox 97.5 F L 78 20 93/68 L 100 12/27/17 06:00 12/27/17 15:54 12/27/17 06:00 12/27/17 15:54 12/27/17 06:00 - Medications Medications: Current Medications Acetaminophen (Tylenol 325mg Tab) 650 mg PO Q6 PRN PRN Reason: Pain and Fever Aripiprazole (Abilify) 15 mg PO DAILY [facility] Last Admin: 12/27/17 10:08 Dose: 15 mg Bacitracin (Bacitracin) 1 gm TOP Q6H PRN PRN Reason: Abrasion Last Admin: 12/24/17 18:30 Dose: 1 gm Bupropion HCl (Wellbutrin) 150 mg PO DAILY [facility] Last Admin: 12/27/17 09:59 Dose: 150 mg Clindamycin HCl (Cleocin) 600 mg PO TID [facility]; Protocol Last Admin: 12/27/17 14:16 Dose: 600 mg Haloperidol (Haldol) 5 mg PO Q4H PRN PRN Reason: Agitation Last Admin: 12/25/17 09:33 Dose: 5 mg Hydroxyzine HCl (Atarax) 50 mg PO Q6H PRN PRN Reason: Anxiety Last Admin: 12/25/17 09:33 Dose: 50 mg Trazodone HCl (Desyrel) 100 mg PO HS PRN PRN Reason: Insomnia Last Admin: 12/26/17 21:35 Dose: 100 mg - Labs Labs: 12/27/17 09:40 12/26/17 12:30 - Constitutional Appears: Well, No Acute Distress - Head Exam Head Exam: ATRAUMATIC, NORMOCEPHALIC - Eye Exam Eye Exam: EOMI, Normal appearance Pupil Exam: NORMAL ACCOMODATION - ENT Exam ENT Exam: Mucous Membranes Moist - Respiratory Exam Respiratory Exam: Clear to Ausculation Bilateral, NORMAL BREATHING PATTERN. absent: Chest Wall Tenderness, Rales, Rhonchi, Wheezes - Cardiovascular Exam Cardiovascular Exam: REGULAR RHYTHM, +S1, +S2. absent: Gallop, Rubs, Murmur - GI/Abdominal Exam GI & Abdominal Exam: Soft, Normal Bowel Sounds. absent: Distended, Tenderness - Extremities Exam Extremities Exam: absent: Pedal Edema Additional comments: R elbow: erythema, edema, multiple punctums draining white pus - Neurological Exam Neurological Exam: Alert, Awake, Oriented x3 - Psychiatric Exam Psychiatric exam: Normal Affect, Normal Mood Assessment and Plan - Assessment and Plan (Free Text) Assessment: 43yo M with no PMH admitted for psychiatric treatment with L elbow wound, medicine consulted for evaluation. Plan: Olecranon Cellulitis with Bursitis - L elbow, draining white pus - pt afebrile, no leukocytosis - wound Cx: MRSA, sensitive to clinda - XR L elbow: soft tissue swelling, suggesting olecranon bursitis - continue clinda 600mg PO TID until tomorrow - start clinda 300mg IV q6h tomorrow - florastor PO daily - tylenol 650mg PO q6h PRN pain - f/u MRI L elbow - pt to be transferred to medical floor for IV abx - isolation, contact precautions - Gen Sx consulted: Dr. Lloyd, signed off - Ortho consulted: Dr. Menjivar Psychiatric History - continue with psychiatric meds and care Case reviewed with Dr. Mahmood
[2017-12-28] MEDS: Clindamycin 600mg/50ml NS 600 MG/50 ML BAG IVPB SCH ×3 (00:42→15:45)
--- NOTE | 2017-12-28 05:36 | PCM.PYCHPN ---
Psychiatric Progress Note - Psychiatric Progress Note Patient seen today, length of contact: 15 min Patient Chief Complaint: I MISS MY CHILDREN Problems Identified/Issues Discussed: PT SEEN AND EXAMINED DISCUSSED WITH STAFF DISCUSSED WITH PT SYMPTOMS INCLUDING VISUAL HALLUCINATIO AND AUDITORY ONES Medical Problems: HAD CULTURE FROM ELBOW WOUND AWAITING RESULTS Diagnostic Results: REVIEWED DSM 5 Symptoms Update: HALLUCINATIONS Medication Change: Yes (ADD ABILIFEdgar) Medical Record Reviewed: Yes Mental Status Examination - Cognitive Function Orientation: Person, Place, Situation, Time Memory: Intact Attention: WNL Concentration: WNL Association: WNL Fund of Knowledge: WNL - Mood Mood: Depressed, Anxious - Affect Affect: Constricted, Depressed - Speech Speech: Appropriate, Soft - Formal Thought Process Formal Thought Process: Hallucinations, Delusions, Paranoia - Suicidal Ideation Suicidal Ideation: No - Homicidal Ideation Homicidal Ideation: No Goal/Treatment Plan - Goal/Treatment Plan Need for Continued Stay: Severe depression anxiety, Severe functional impairment Progress Toward Problem(s) and Goals/Treatment Plan: MDD WITH PSYCHOSIS [facility]TRIN S[facility] - Smoking Cessation Smoking Cessation Initiated: No
--- NOTE | 2017-12-28 05:42 | PCM.PYCHPN ---
Psychiatric Progress Note - Psychiatric Progress Note Patient seen today, length of contact: 15 min Patient Chief Complaint: I MISS MY CHILDREN Problems Identified/Issues Discussed: PT SEEN AND EXAMINED DISCUSSED WITH STAFF DISCUSSED WITH PT SYMPTOMS INCLUDING VISUAL HALLUCINATIONS AND AUDITORY ONES PT 'S WOUND CULTURE CAME BACK POSITIVE FOR MRSA AND WHAT THIS MEANS Medical Problems: MRSA NEEDS IV ANTIBIOTICS Diagnostic Results: MRSA DSM 5 Symptoms Update: ANXIETY INSOMNIA Medication Change: No (ADD ABILIFY) Medical Record Reviewed: Yes Mental Status Examination - Cognitive Function Orientation: Person, Place, Situation, Time Memory: Intact Attention: WNL Concentration: WNL Association: WNL Fund of Knowledge: WNL - Mood Mood: Depressed, Anxious - Affect Affect: Constricted, Depressed - Speech Speech: Appropriate, Soft - Formal Thought Process Formal Thought Process: Delusions - Suicidal Ideation Suicidal Ideation: No - Homicidal Ideation Homicidal Ideation: No Goal/Treatment Plan - Goal/Treatment Plan Need for Continued Stay: Severe depression anxiety, Severe functional impairment Progress Toward Problem(s) and Goals/Treatment Plan: MDD WITH PSYCHOSIS WELL[facility] SEROQUEM[facility] [place] [facility] MRSA IV ANTIBIOTICS TRANSFER TO MEDICAL FLOOR - Smoking Cessation Smoking Cessation Initiated: No
--- NOTE | 2017-12-28 07:26 | CP.PCM.PN ---
<Kenrick Aguilar - Last Filed: 12/28/17 20:52> Subjective - Date & Time of Evaluation Date of Evaluation: 12/28/17 Time of Evaluation: 07:25 - Subjective Subjective: Progress Note for Hospitalist service Patient seen and examined at bedside. He states that he has left elbow pain with continued drainage from the site. He states that he has some pain when he bends his elbow. He denies fevers, chills, chest pain, shortness of breath, abdominal pain, nausea, vomiting, diarrhea, constipation, dysuria. Patient also complains of mild left lower calf swelling compared to right, however denies calf pain. He states he has been walking up and has not stayed in bed all day. Objective - Vital Signs/Intake and Output Vital Signs (last 24 hours): Temp Pulse Resp BP Pulse Ox 97.5 F L 81 20 116/67 98 12/27/17 23:20 12/27/17 23:20 12/27/17 23:20 12/27/17 23:20 12/27/17 23:20 - Medications Medications: Current Medications Acetaminophen (Tylenol 325mg Tab) 650 mg PO Q6 PRN PRN Reason: Pain and Fever Last Admin: 12/28/17 04:00 Dose: 650 mg Aripiprazole (Abilify) 15 mg PO DAILY [facility] Last Admin: 12/27/17 10:08 Dose: 15 mg Bacitracin (Bacitracin) 1 gm TOP Q6H PRN PRN Reason: Abrasion Last Admin: 12/24/17 18:30 Dose: 1 gm Bupropion HCl (Wellbutrin) 150 mg PO DAILY [facility] Last Admin: 12/27/17 09:59 Dose: 150 mg Haloperidol (Haldol) 5 mg PO Q4H PRN PRN Reason: Agitation Last Admin: 12/25/17 09:33 Dose: 5 mg Hydroxyzine HCl (Atarax) 50 mg PO Q6H PRN PRN Reason: Anxiety Last Admin: 12/25/17 09:33 Dose: 50 mg Clindamycin Phosphate (Cleocin 600mg/50ml Ns) 600 mg in 50 mls @ 100 mls/hr IVPB Q8H [facility]; Protocol Last Admin: 12/28/17 00:42 Dose: 100 mls/hr Nicotine (Nicoderm Cq) 1 patch TD DAILY [facility] Saccharomyces Boulardii (Florastor) 250 mg PO BID [facility] Trazodone HCl (Desyrel) 150 mg PO HS PRN PRN Reason: Insomnia Last Admin: 12/28/17 04:05 Dose: 150 mg - Labs Labs: 12/27/17 09:40 12/26/17 12:30 - Constitutional Appears: Well, No Acute Distress - Head Exam Head Exam: ATRAUMATIC, NORMOCEPHALIC - Eye Exam Eye Exam: EOMI - ENT Exam ENT Exam: Mucous Membranes Moist - Neck Exam Neck Exam: Full ROM. absent: Tenderness - Respiratory Exam Respiratory Exam: Clear to Ausculation Bilateral. absent: Rales, Rhonchi, Wheezes, Respiratory Distress, Stridor - Cardiovascular Exam Cardiovascular Exam: REGULAR RHYTHM, +S1, +S2. absent: Gallop, Rubs, Murmur - GI/Abdominal Exam GI & Abdominal Exam: Soft, Normal Bowel Sounds. absent: Firm, Guarding, Rigid, Organomegaly - Extremities Exam Extremities Exam: Normal Capillary Refill, Pedal Edema (mild LLE edema). absent: Calf Tenderness Additional comments: Left elbow: upon removal of dressing, multiple open sites with purulent laura inage. tenderness, erythema and edema to the left elbow with no lymphangitis noted. Left lower extremity: mild swelling, no calf tenderness Right lower extremity: nonedematous, no calf tenderness. - Neurological Exam Neurological Exam: Alert, Awake, Oriented x3 Assessment and Plan - Assessment and Plan (Free Text) Plan: Assessment: 43yo M with history of depression admitted for psychiatric treatment. Medicine consulted for evaluation of left elbow wound. Plan: Olecranon Cellulitis with Bursitis - Remains afebrile, no leukocytosis - XR L elbow: soft tissue swelling, suggesting olecranon bursitis - Left elbow MRI: Limited study as the patient could not tolerate gadolinium. Extensive motion artifact. 1. At the level of the olecranon bursa, there is a 1.4 x.4 x 5.7 centimeter lobulated heterogeneous increased STIR signal intensity collection. This is suggestive for an underlying olecranon bursitis with superimposed acute inflammatory and or infectious changes not excluded. Please note no contrast was given on this study, markedly limiting evaluation for abscess formation. Prominent reticulation and edema within the adjacent subcutaneous soft tissues. No gross signal abnormality within the adjacent olecranon to suggest an acute osteomyelitis. 2. Heterogeneity of the visualized marrow within the proximal radius with patchy decreased T1 signal suggestive for hematopoietic marrow reconversion. 3. Small elbow joint effusion. - Wound Cx: MRSA - Meds: Clindamycin (12/26 -12/28) Merrem 500mg IV (started 12/28) Florastor 250 mg PO daily Tylenol 650mg PO q6h PRN pain Percocet 1 tab Q4 PRN - Isolation, contact precautions - Gen Sx consulted: Dr. Lloyd, help appreciated As per Dr. Lloyd, plan to take patient to OR for I&D. EKG NSR at [address] changes CXR no acute disease Patient was medically optimized for surgery, patient is medium risk given prior history of gastric bypass surgery. Patient denies other medical history including diabetes, hypertension, hyperlipidemia, sleep apnea. Anesthesia and surgical team to further explain procedures prior to surgery to patient. Left lower extremity swelling - f/u venous dopplers History of depression with psychotic features - Patient currently denies suicidal or homicidal thoughts with no auditory or visual hallucinations. - Meds: Ability 15mg PO Wellbutrin 150mg PO daily Haldol 5mg PO Q4 PRN Atarax 50mg PO Q6 PRN Nicotine patch Trazodone 150mg PO HS PRN Case discussed with Dr. Kraig Aguilar, PGY1 <Rufina Cornell V - Last Filed: 12/31/17 20:29> Objective - Vital Signs/Intake and Output Vital Signs (last 24 hours): Temp Pulse Resp BP Pulse Ox 98.5 F 66 20 101/67 98 12/31/17 15:00 12/31/17 15:00 12/31/17 15:00 12/31/17 15:00 12/31/17 15:00 - Medications Medications: Current Medications Aripiprazole (Abilify) 15 mg PO DAILY [facility] Last Admin: 12/31/17 10:27 Dose: 15 mg Bacitracin (Bacitracin) 1 gm TOP Q6H PRN PRN Reason: Abrasion Last Admin: 12/24/17 18:30 Dose: 1 gm Bupropion HCl (Wellbutrin) 150 mg PO DAILY [facility] Last Admin: 12/31/17 10:23 Dose: 150 mg Clindamycin HCl (Cleocin) 300 mg PO TID [facility]; Protocol Stop: 01/08/18 23:55 Last Admin: 12/31/17 17:20 Dose: 300 mg Folic Acid (Folic Acid) 1 mg PO DAILY [facility] Last Admin: 12/31/17 11:02 Dose: 1 mg Haloperidol (Haldol) 5 mg PO Q4 PRN PRN Reason: Agitation Hydroxyzine HCl (Atarax) 50 mg PO Q6 PRN PRN Reason: Anxiety Multivitamins (Hexavitamin) 1 tab PO DAILY [facility] Last Admin: 12/31/17 10:21 Dose: 1 tab Nicotine (Nicoderm Cq) 1 patch TD DAILY [facility] Last Admin: 12/31/17 10:21 Dose: 1 patch Saccharomyces Boulardii (Florastor) 250 mg PO BID [facility] Last Admin: 12/31/17 17:20 Dose: 250 mg Thiamine HCl (Vitamin B1 Tab) 100 mg PO DAILY [facility] Last Admin: 12/31/17 11:01 Dose: 100 mg Trazodone HCl (Desyrel) 150 mg PO HS PRN PRN Reason: Insomnia Last Admin: 12/30/17 22:37 Dose: 150 mg - Labs Labs: 12/31/17 07:09 12/31/17 07:09 PT 12.0 SECONDS (9.7-12.2) 12/28/17 11:56 INR 1.1 12/28/17 11:56 APTT 36 SECONDS (21-34) H 12/28/17 11:56 Attending/Attestation - Attestation I have personally seen and examined this patient.: Yes I have fully participated in the care of the patient.: Yes I have reviewed all pertinent clinical information, including history, physical exam and plan: Yes Notes (Text): This is late computer entry for 12/28/17. Patient seen, examined and case discussed with day-time resident. Patient transferred out from [facility] for MRSA elbow cellulitis. Psych floor unable to maintain contact precautions so brought to medical floor. Patient has history of gastriic bypass surgery in 2003, for BMI in the 60s denies other co morbdities. Patient is noncompliant on vitamins, vitamin D, and calcium supplements. Patient advised to be compliant given adverse side effects. patient ordered for MRI to evaluate the elbow per surgery. General surgery planning for I&D at 430PM today pending MRI results. We have ordered for EKG/chest xray/coags in light of surgery plan. Patient was on Clindamycin to cover for MRSA, was switched to Meropenem per ID.. Patient is medically optimized prior to procedure. Also, to note, general surgery has spoken with orthopedic surgery given results of MRI; hence orthopedic consulted was cancelled following their conversation. Patient reports he thought his left leg appeared bigger than his right, no pain, no rubor; ordered for left lower extremity venous doppler to exclude DVT. Patient strongly encourage tobacco cessation.
[2017-12-28] MEDS ORDERED: Clindamycin 300 MG in Sodium Chloride 0.9% 50 ML IVPB SCH ×2 (10:00)
[2017-12-28] MEDS ORDERED: Saccharomyces Boulardi 250 mg Cap PO SCH (10:00)
--- NOTE | 2017-12-28 11:13 | RAD ---
HISTORY: preadmission COMPARISON: None available TECHNIQUE: Chest, one view. FINDINGS: Examination limited by habitus. LUNGS: No focal consolidation. Please note that chest x-ray has limited sensitivity for the detection of pulmonary masses. PLEURA: No significant pleural effusion identified. No definite pneumothorax . CARDIOVASCULAR: The cardiomediastinal silhouette appears within normal limits of size. No significant atherosclerotic calcification present. OSSEOUS STRUCTURES: Degenerative changes of the spine. VISUALIZED UPPER ABDOMEN: Unremarkable. OTHER FINDINGS: None. IMPRESSION: No focal consolidation.
[2017-12-28 11:37] LABS: BASO # 0.1 K/uL (0.0-0.2); BASO % 1.6 % (0.0-2.0); EOS # 0.1 K/uL (0.0-0.7); EOS % 3.5 % (0.0-4.0); HEMOGLOBIN 11.3 g/dL (12.0-18.0); LYMPH # 0.5 K/uL (1.0-4.3); LYMPH % 15.7 % (20.0-40.0); MEAN CELL VOLUME 82.5 fL (80.0-94.0); MEAN CORPUSCULAR HEMOGLOBIN 27.4 pg (27.0-31.0); MEAN CORPUSCULAR HGB CONC 33.2 g/dL (33.0-37.0); MEAN PLATELET VOLUME 7.5 fL (7.2-11.7); MONO # 0.7 K/uL (0.0-0.8); MONO % 19.4 % (0.0-10.0); NEUT # 2.1 K/uL (1.8-7.0); NEUT % 59.8 % (50.0-75.0); NRBC % 0.1 % (0.0-2.0); RBC 4.14 Mil/uL (4.40-5.90); RED CELL DISTRIBUTION WIDTH 18.8 % (11.5-14.5); WHITE BLOOD COUNT 3.5 K/uL (4.8-10.8)
[2017-12-28 12:09] LABS: BLOOD UREA NITROGEN 14 mg/dL (9-20); CALCIUM 8.3 mg/dl (8.6-10.4); GFR NON-AFRICAN AMERICAN > 60
[2017-12-28 12:46] LABS: INR 1.1
--- NOTE | 2017-12-28 13:58 | MRI ---
MRI left elbow HISTORY: Abscess. COMPARISON: X-ray dated 12/26/2017 TECHNIQUE: Multi-echo multiplanar sequences were performed through the left elbow without the use of intravenous contrast. Findings: Limited study as the patient could not tolerate gadolinium. Extensive motion artifact. At the level of the olecranon bursa, there is a 1.4 x.4 x 5.7 centimeter lobulated heterogeneous increased STIR signal intensity collection. This is suggestive for an underlying olecranon bursitis with superimposed acute inflammatory and or infectious changes not excluded. Please note no contrast was given on this study, markedly limiting evaluation for abscess formation. Prominent reticulation and edema within the adjacent subcutaneous soft tissues. No gross signal abnormality within the adjacent olecranon to suggest an acute osteomyelitis. Heterogeneity of the visualized marrow within the proximal radius with patchy decreased T1 signal suggestive for hematopoietic marrow reconversion. Biceps and brachialis tendon insertions are preserved. Triceps tendon insertion is preserved. Common flexor and common extensor tendons are preserved. Radial collateral and lateral ulnar collateral ligaments are preserved. Ulnar collateral ligament is preserved. Small elbow joint effusion. Impression: Limited study as the patient could not tolerate gadolinium. Extensive motion artifact. 1. At the level of the olecranon bursa, there is a 1.4 x.4 x 5.7 centimeter lobulated heterogeneous increased STIR signal intensity collection. This is suggestive for an underlying olecranon bursitis with superimposed acute inflammatory and or infectious changes not excluded. Please note no contrast was given on this study, markedly limiting evaluation for abscess formation. Prominent reticulation and edema within the adjacent subcutaneous soft tissues. No gross signal abnormality within the adjacent olecranon to suggest an acute osteomyelitis. 2. Heterogeneity of the visualized marrow within the proximal radius with patchy decreased T1 signal suggestive for hematopoietic marrow reconversion. 3. Small elbow joint effusion.
--- NOTE | 2017-12-28 14:47 | CP.PCM.PCO ---
Addendum Addendum: 12/28/17 14:47 Patient is medically optimized for surgery. EKG: NSR at [address] changes. CXR is negative. Patient is medium risk for surgery. He is status post gastric bypass surgery in 2003. Surgery and Anesthesia to explain procedure including risks and benefits to patient. Case discussed with Dr. Kraig Aguilar, PGY1
[2017-12-28] MEDS ORDERED: Midazolam 2 MG/2 ML VIAL ONE ×2 (15:38→15:53)
[2017-12-28] MEDS ORDERED: Propofol 10 mg/ml Inj (20 ML) ONE (15:38)
[2017-12-28] MEDS ORDERED: Clindamycin 600mg/50ml NS 600 MG/50 ML BAG IVPB ONE (15:45)
[2017-12-28] MEDS ORDERED: Bupivacaine 0.25% 20 ML INJ IJ ONE (15:46)
[2017-12-28] MEDS ORDERED: Lidocaine 2% w Epi 1:100,000 Inj IJ ONE (15:46)
[2017-12-28] MEDS ORDERED: HYDROmorphone 0.5 mg/0.5 ml ISec IVP PRN (16:09)
--- NOTE | 2017-12-28 16:19 | PCM.SURG1 ---
Surgeon's Initial Post Op Note - Surgeon's Notes Surgeon: Dr. Lloyd Tax Adjuster: Dr. Valdovinos Type of Anesthesia: IV Sedation Pre-Operative Diagnosis: Left elbow abscess Operative Findings: See operative report Post-Operative Diagnosis: Same Operation Performed: Incision & Drainage + Debridement of Left Elbow Abscess Specimen/Specimens Removed: debrided tissue Estimated Blood Loss: EBL {In ML}: 10 Blood Products Given: N/A Drains Used: No Drains Post-Op Condition: Good Date of Surgery/Procedure: 12/28/17 Time of Surgery/Procedure: 16:19
[2017-12-28] MEDS: Oxycodone/Acetaminophen 5/325 mg Tab PO PRN ×2 (19:27→23:28)
[2017-12-28] MEDS: Meropenem 500 MG in Sodium Chloride 0.9% 100 ML IVPB SCH (19:28)
[2017-12-29] MEDS: Meropenem 500 MG in Sodium Chloride 0.9% 100 ML IVPB SCH ×2 (00:57→09:17)
--- NOTE | 2017-12-29 04:12 | OP ---
PROCEDURE DATE: 12/28/2017 PREOPERATIVE DIAGNOSIS: Left elbow olecranon bursitis with abscess. POSTOPERATIVE DIAGNOSIS: Left elbow olecranon bursitis with abscess. PROCEDURE DONE: 1. Incision and drainage of left elbow superficial abscess. 2. Excisional debridement of the abscess cavity wall, superficial. SURGEON: Nic Lloyd MD. FLATBED STITCHER: Sasha Valdovinos DO, PGY 2 resident. ANESTHESIA: General endotracheal tube anesthesia. ESTIMATED BLOOD LOSS: Around 10 mL. DRAINS: None. PATHOLOGY: Pus was sent for culture and sensitivity and debrided tissue was also sent for pathology. COMPLICATIONS: None. INTRAOPERATIVE FINDINGS: The patient had approximately 10 mL of pus inside the left elbow abscess and the patient also had slough as well as a bad, necrotic tissue in the abscess cavity wall. DESCRIPTION OF PROCEDURE: On intraoperative steps, this 47-year-old male who was diagnosed with abscess of the left elbow and the patient was consented for incision and drainage, brought to the OR. The patient also had an preoperative MRI as well as orthopedic consult and it was suggestive of the olecranon bursitis with abscess and the patient was brought to the OR, placed supine on the operating table. After induction of the anesthesia, the left elbow was prepped and draped, local anesthesia was injected. A transverse incision was made after incising the skin, subcutaneous tissue. The abscess cavity was entered. Approximately 8 to 10 mL of pus was drained and the pus was sent for culture and sensitivity and the abscess cavity was completely debrided, all the necrotic tissue was completely excised and hemostasis was properly achieved. The wound was irrigated. The wound was prepped with Iodoform packing and dry sterile dressing was applied. The patient tolerated the procedure well. Count of the instrument and gauze was correct. There were no apparent complication. The patient was reversed from anesthesia, sent to the postanesthesia care unit in stable condition. Nic Lloyd MD DAWNA
[2017-12-29] MEDS: Oxycodone/Acetaminophen 5/325 mg Tab PO PRN ×4 (05:11→19:11)
[2017-12-29 08:45] LABS: MEAN CELL VOLUME 82.9 fL (80.0-94.0); MEAN CORPUSCULAR HEMOGLOBIN 27.2 pg (27.0-31.0); MEAN CORPUSCULAR HGB CONC 32.8 g/dL (33.0-37.0); MEAN PLATELET VOLUME 7.8 fL (7.2-11.7); RBC 4.05 Mil/uL (4.40-5.90); RED CELL DISTRIBUTION WIDTH 19.4 % (11.5-14.5)
[2017-12-29] MEDS: Multiple Vitamins Tab PO SCH (09:15)
[2017-12-29] MEDS: Saccharomyces Boulardi 250 mg Cap PO SCH ×2 (09:17→17:40)
--- NOTE | 2017-12-29 09:31 | CP.PCM.PN ---
<Sasha Valdovinos - Last Filed: 12/29/17 09:28> Subjective - Date & Time of Evaluation Date of Evaluation: 12/29/17 Time of Evaluation: 09:28 - Subjective Subjective: Surgery: Dr. Lloyd Pt seen and examined. No acute overnight events. Pt states he feels well and admits to post-op pain around Left elbow. Denies other complaints at this time. Tolerating diet, denies fevers/chills. Objective - Vital Signs/Intake and Output Vital Signs (last 24 hours): Temp Pulse Resp BP Pulse Ox 97.0 F L 62 20 102/64 98 12/29/17 07:00 12/29/17 07:00 12/29/17 07:00 12/29/17 07:00 12/29/17 07:00 Intake and Output: 12/29/17 12/29/17 06:59 18:59 Intake Total 950 Balance 950 - Medications Medications: Current Medications Aripiprazole (Abilify) 15 mg PO DAILY [facility] Bacitracin (Bacitracin) 1 gm TOP Q6H PRN PRN Reason: Abrasion Last Admin: 12/24/17 18:30 Dose: 1 gm Bupropion HCl (Wellbutrin) 150 mg PO DAILY [facility] Last Admin: 12/29/17 09:16 Dose: 150 mg Folic Acid (Folic Acid) 1 mg PO DAILY [facility] Last Admin: 12/29/17 09:16 Dose: 1 mg Haloperidol (Haldol) 5 mg PO Q4 PRN PRN Reason: Agitation Hydroxyzine HCl (Atarax) 50 mg PO Q6 PRN PRN Reason: Anxiety Meropenem 500 mg/ Sodium (Chloride) 100 mls @ 100 mls/hr IVPB Q8H [facility]; Protocol Stop: 01/02/18 17:01 Last Admin: 12/29/17 09:17 Dose: 100 mls/hr Multivitamins (Hexavitamin) 1 tab PO DAILY [facility] Last Admin: 12/29/17 09:15 Dose: 1 tab Nicotine (Nicoderm Cq) 1 patch TD DAILY [facility] Last Admin: 12/29/17 09:17 Dose: 1 patch Oxycodone/Acetaminophen (Percocet 5/325 Mg Tab) 1 tab PO Q4H PRN PRN Reason: Pain, moderate (4-7) Stop: 12/31/17 18:24 Last Admin: 12/29/17 05:11 Dose: 1 tab Saccharomyces Boulardii (Florastor) 250 mg PO BID [facility] Last Admin: 12/29/17 09:17 Dose: 250 mg Thiamine HCl (Vitamin B1 Tab) 100 mg PO DAILY [facility] Trazodone HCl (Desyrel) 150 mg PO HS PRN PRN Reason: Insomnia Last Admin: 12/28/17 23:32 Dose: 150 mg - Labs Labs: 12/29/17 08:22 12/28/17 11:21 PT 12.0 SECONDS (9.7-12.2) 12/28/17 11:56 INR 1.1 12/28/17 11:56 APTT 36 SECONDS (21-34) H 12/28/17 11:56 - Constitutional Appears: Well, No Acute Distress - Head Exam Head Exam: ATRAUMATIC, NORMOCEPHALIC - ENT Exam ENT Exam: Mucous Membranes Moist - Respiratory Exam Respiratory Exam: NORMAL BREATHING PATTERN - Cardiovascular Exam Cardiovascular Exam: RRR - GI/Abdominal Exam GI & Abdominal Exam: Soft - Extremities Exam Extremities Exam: absent: Calf Tenderness Additional comments: Left elbow with erythema around abscess cavity; improving. Packing non-purulent, wound clean/dry - Neurological Exam Neurological Exam: Alert, Awake, Oriented x3 - Skin Skin Exam: Dry, Warm Assessment and Plan - Assessment and Plan (Free Text) Assessment: 47M s/p I&D of left elbow abscess; POD#1 Plan: - cont ABX - daily packing changes - possible switch to PO ABX after discussion with ID - d/w Dr. Gabino Valdovinos <Nic Lloyd - Last Filed: 01/02/18 19:56> Objective - Vital Signs/Intake and Output Vital Signs (last 24 hours): Temp Pulse Resp BP Pulse Ox 97.8 F 84 20 105/73 97 01/02/18 15:00 01/02/18 15:00 01/02/18 15:00 01/02/18 15:00 01/02/18 15:00 - Medications Medications: Current Medications Aripiprazole (Abilify) 15 mg PO DAILY [facility] Last Admin: 01/02/18 10:06 Dose: 15 mg Bacitracin (Bacitracin) 1 gm TOP Q6H PRN PRN Reason: Abrasion Last Admin: 12/24/17 18:30 Dose: 1 gm Bupropion HCl (Wellbutrin) 150 mg PO DAILY [facility] Last Admin: 01/02/18 10:07 Dose: 150 mg Clindamycin HCl (Cleocin) 300 mg PO TID [facility]; Protocol Stop: 01/08/18 23:55 Last Admin: 01/02/18 18:22 Dose: 300 mg Emollient Ointment (Vaseline Oint) 5 gm TOP Q4H PRN PRN Reason: Dry skin Last Admin: 01/01/18 12:15 Dose: 5 gm Folic Acid (Folic Acid) 1 mg PO DAILY [facility] Last Admin: 01/02/18 10:07 Dose: 1 mg Gabapentin (Neurontin) 300 mg PO BID [facility] Last Admin: 01/02/18 18:22 Dose: 300 mg Haloperidol (Haldol) 5 mg PO Q4 PRN PRN Reason: Agitation Hydroxyzine HCl (Atarax) 50 mg PO Q6 PRN PRN Reason: Anxiety Multivitamins (Hexavitamin) 1 tab PO DAILY [facility] Last Admin: 01/02/18 10:07 Dose: 1 tab Nicotine (Nicoderm Cq) 1 patch TD DAILY [facility] Last Admin: 01/02/18 10:06 Dose: 1 patch Oxycodone/Acetaminophen (Percocet 5/325 Mg Tab) 1 tab PO Q4H PRN PRN Reason: Pain Stop: 01/03/18 21:02 Last Admin: 01/02/18 14:54 Dose: 1 tab Saccharomyces Boulardii (Florastor) 250 mg PO BID [facility] Last Admin: 01/02/18 18:22 Dose: 250 mg Thiamine HCl (Vitamin B1 Tab) 100 mg PO DAILY [facility] Last Admin: 01/02/18 10:12 Dose: 100 mg Trazodone HCl (Desyrel) 150 mg PO HS PRN PRN Reason: Insomnia Last Admin: 01/01/18 22:13 Dose: 150 mg Vitamin A (Vitamin A & D Oint Ud Foilpak) 1 ea TOP Q8 PRN PRN Reason: Dry skin - Labs Labs: 01/02/18 08:11 01/02/18 08:11 PT 12.0 SECONDS (9.7-12.2) 12/28/17 11:56 INR 1.1 12/28/17 11:56 APTT 36 SECONDS (21-34) H 12/28/17 11:56 Attending/Attestation - Attestation I have personally seen and examined this patient.: Yes I have fully participated in the care of the patient.: Yes I have reviewed all pertinent clinical information, including history, physical exam and plan: Yes Notes (Text): Pt was seen and examined at bedside Agree with above note and assessment Pt is s/p I & D of L Elbow Local wound care IV antibiotic f.u C/S Plan d.w pt in detail
[2017-12-29 09:33] LABS: ALB/GLOB RATIO 1.1 (1.0-2.1); ALBUMIN 3.2 g/dL (3.5-5.0); ALT/SGPT 71 U/L (21-72); AST/SGOT 95 U/L (17-59); BLOOD UREA NITROGEN 11 mg/dL (9-20); CALCIUM 8.3 mg/dl (8.6-10.4); GFR NON-AFRICAN AMERICAN > 60
[2017-12-29 09:43] LABS: EOS # 0.2 K/uL (0.0-0.7); LYMPH # 0.8 K/uL (1.0-4.3); MONO # 0.5 K/uL (0.0-0.8); NEUT # 1.5 K/uL (1.8-7.0)
[2017-12-29 12:08] LABS: ALB/GLOB RATIO 1.1 (1.0-2.1); ALBUMIN 3.3 g/dL (3.5-5.0); ALT/SGPT 69 U/L (21-72); AST/SGOT 79 U/L (17-59); BLOOD UREA NITROGEN 11 mg/dL (9-20); CALCIUM 8.7 mg/dl (8.6-10.4); GFR NON-AFRICAN AMERICAN > 60
--- NOTE | 2017-12-29 16:04 | CP.PCM.PN ---
<Gita Marquez Y - Last Filed: 12/29/17 16:01> Subjective - Date & Time of Evaluation Date of Evaluation: 12/29/17 Time of Evaluation: 10:30 - Subjective Subjective: PGY-1 Medicine Progress Note for Dr. Nicholson Patient was seen and examined today at bedside in no acute distress. Nurse reports no overnight events. Patient complains of soreness at the I&D site. He has no other complaints. He enjoys being in his own room on med/surg. Denies chest pain, numbness, tingling, shortness of breath, difficulty urinating or having BM. Objective - Vital Signs/Intake and Output Vital Signs (last 24 hours): Temp Pulse Resp BP Pulse Ox 97.0 F L 62 20 102/64 98 12/29/17 07:00 12/29/17 07:00 12/29/17 07:00 12/29/17 07:00 12/29/17 07:00 Intake and Output: 12/29/17 12/29/17 06:59 18:59 Intake Total 950 580 Balance 950 580 - Medications Medications: Current Medications Aripiprazole (Abilify) 15 mg PO DAILY [facility] Last Admin: 12/29/17 10:35 Dose: 15 mg Bacitracin (Bacitracin) 1 gm TOP Q6H PRN PRN Reason: Abrasion Last Admin: 12/24/17 18:30 Dose: 1 gm Bupropion HCl (Wellbutrin) 150 mg PO DAILY [facility] Last Admin: 12/29/17 09:16 Dose: 150 mg Clindamycin HCl (Cleocin) 300 mg PO TID [facility]; Protocol Stop: 01/08/18 23:55 Folic Acid (Folic Acid) 1 mg PO DAILY [facility] Last Admin: 12/29/17 09:16 Dose: 1 mg Haloperidol (Haldol) 5 mg PO Q4 PRN PRN Reason: Agitation Hydroxyzine HCl (Atarax) 50 mg PO Q6 PRN PRN Reason: Anxiety Multivitamins (Hexavitamin) 1 tab PO DAILY [facility] Last Admin: 12/29/17 09:15 Dose: 1 tab Nicotine (Nicoderm Cq) 1 patch TD DAILY [facility] Last Admin: 12/29/17 09:17 Dose: 1 patch Oxycodone/Acetaminophen (Percocet 5/325 Mg Tab) 1 tab PO Q4H PRN PRN Reason: Pain, moderate (4-7) Stop: 12/31/17 18:24 Last Admin: 12/29/17 14:36 Dose: 1 tab Saccharomyces Boulardii (Florastor) 250 mg PO BID [facility] Last Admin: 12/29/17 09:17 Dose: 250 mg Thiamine HCl (Vitamin B1 Tab) 100 mg PO DAILY [facility] Last Admin: 12/29/17 10:00 Dose: 100 mg Trazodone HCl (Desyrel) 150 mg PO HS PRN PRN Reason: Insomnia Last Admin: 12/28/17 23:32 Dose: 150 mg - Labs Labs: 12/29/17 08:22 12/29/17 11:24 PT 12.0 SECONDS (9.7-12.2) 12/28/17 11:56 INR 1.1 12/28/17 11:56 APTT 36 SECONDS (21-34) H 12/28/17 11:56 - Constitutional Appears: Well, No Acute Distress - Head Exam Head Exam: ATRAUMATIC, NORMOCEPHALIC - Eye Exam Eye Exam: EOMI, PERRL - ENT Exam ENT Exam: Mucous Membranes Moist - Respiratory Exam Respiratory Exam: Clear to Ausculation Bilateral, NORMAL BREATHING PATTERN. absent: Rales, Rhonchi, Wheezes - Cardiovascular Exam Cardiovascular Exam: REGULAR RHYTHM, +S1, +S2. absent: Gallop, Rubs, Murmur - GI/Abdominal Exam GI & Abdominal Exam: Soft, Normal Bowel Sounds. absent: Tenderness - Extremities Exam Extremities Exam: Normal Capillary Refill. absent: Calf Tenderness, Pedal Edema Additional comments: IV access in R arm peripheral pulses palpable (radial, DP) - Neurological Exam Neurological Exam: Alert, Awake, Oriented x3 - Psychiatric Exam Psychiatric exam: Normal Affect, Normal Mood - Skin Skin Exam: Dry, Normal Color, Warm Assessment and Plan - Assessment and Plan (Free Text) Assessment: 43yo M with history of depression admitted for psychiatric treatment. Medicine consulted for evaluation of left elbow wound. He's POD#1 of L elbow I&D Plan: Olecranon Cellulitis with Bursitis - Remains afebrile, no leukocytosis - XR L elbow: soft tissue swelling, suggesting olecranon bursitis - Left elbow MRI: Limited study as the patient could not tolerate gadolinium. Extensive motion artifact. 1. At the level of the olecranon bursa, there is a 1.4 x.4 x 5.7 centimeter lobulated heterogeneous increased STIR signal intensity collection. This is suggestive for an underlying olecranon bursitis with superimposed acute inflammatory and or infectious changes not excluded. Please note no contrast was given on this study, markedly limiting evaluation for abscess formation. Prominent reticulation and edema within the adjacent subcutaneous soft tissues. No gross signal abnormality within the adjacent olecranon to suggest an acute osteomyelitis. 2. Heterogeneity of the visualized marrow within the proximal radius with patchy decreased T1 signal suggestive for hematopoietic marrow reconversion. 3. Small elbow joint effusion. - Wound Cx: MRSA - Meds: Clindamycin (12/26 -12/28) Merrem 500mg IV (12/28 -12/29) Switched to PO Clindamycin 300mg po tid (started 12/29) Florastor 250 mg PO daily Tylenol 650mg PO q6h PRN pain Percocet 1 tab Q4 PRN - Isolation, contact precautions - Gen Sx consulted: Dr. Lloyd, help appreciated POD#1 L elbow I&D, dressings c/d/i EKG NSR at [address] changes CXR no acute disease Left lower extremity swelling - Venous Dopplers (12/29): pending read. Prelim neg History of depression with psychotic features - Patient currently denies suicidal or homicidal thoughts with no auditory or visual hallucinations. - Meds: Ability 15mg PO Wellbutrin 150mg PO daily Haldol 5mg PO Q4 PRN Atarax 50mg PO Q6 PRN Nicotine patch Trazodone 150mg PO HS PRN Patient will trial po antibiotics, consider transferring back to psychiatry if tolerating. d/w Dr. Lyn Marquez PGY-1 <Nahun Nicholson H - Last Filed: 12/30/17 07:24> Objective - Vital Signs/Intake and Output Vital Signs (last 24 hours): Temp Pulse Resp BP Pulse Ox 97.8 F 71 20 108/68 97 12/29/17 23:20 12/29/17 23:20 12/29/17 23:20 12/29/17 23:20 12/29/17 23:20 - Medications Medications: Current Medications Aripiprazole (Abilify) 15 mg PO DAILY [facility] Last Admin: 12/29/17 10:35 Dose: 15 mg Bacitracin (Bacitracin) 1 gm TOP Q6H PRN PRN Reason: Abrasion Last Admin: 12/24/17 18:30 Dose: 1 gm Bupropion HCl (Wellbutrin) 150 mg PO DAILY [facility] Last Admin: 12/29/17 09:16 Dose: 150 mg Clindamycin HCl (Cleocin) 300 mg PO TID [facility]; Protocol Stop: 01/08/18 23:55 Last Admin: 12/29/17 17:40 Dose: 300 mg Folic Acid (Folic Acid) 1 mg PO DAILY [facility] Last Admin: 12/29/17 09:16 Dose: 1 mg Haloperidol (Haldol) 5 mg PO Q4 PRN PRN Reason: Agitation Hydroxyzine HCl (Atarax) 50 mg PO Q6 PRN PRN Reason: Anxiety Multivitamins (Hexavitamin) 1 tab PO DAILY [facility] Last Admin: 12/29/17 09:15 Dose: 1 tab Nicotine (Nicoderm Cq) 1 patch TD DAILY [facility] Last Admin: 12/29/17 09:17 Dose: 1 patch Oxycodone/Acetaminophen (Percocet 5/325 Mg Tab) 1 tab PO Q4H PRN PRN Reason: Pain, moderate (4-7) Stop: 12/31/17 18:24 Last Admin: 12/30/17 03:44 Dose: 1 tab Saccharomyces Boulardii (Florastor) 250 mg PO BID [facility] Last Admin: 12/29/17 17:40 Dose: 250 mg Thiamine HCl (Vitamin B1 Tab) 100 mg PO DAILY [facility] Last Admin: 12/29/17 10:00 Dose: 100 mg Trazodone HCl (Desyrel) 150 mg PO HS PRN PRN Reason: Insomnia Last Admin: 12/28/17 23:32 Dose: 150 mg - Labs Labs: 12/29/17 08:22 12/29/17 11:24 PT 12.0 SECONDS (9.7-12.2) 12/28/17 11:56 INR 1.1 12/28/17 11:56 APTT 36 SECONDS (21-34) H 12/28/17 11:56 Attending/Attestation - Attestation I have personally seen and examined this patient.: Yes I have fully participated in the care of the patient.: Yes I have reviewed all pertinent clinical information, including history, physical exam and plan: Yes Notes (Text): 12/30/17 07:22 Medical attending: Patient was seen and examined by me. Agree with the above note by the resident The patient was not in any acute distress when I came and saw patient. Abx were adjusted and he was placed on PO clindamycin. The cultures show there is sensitivity to this. Patient might be able to return to psychiatry service soon. Nahun Nicholson 12/30/17 07:23
[2017-12-30] MEDS: Oxycodone/Acetaminophen 5/325 mg Tab PO PRN ×4 (03:44→19:23)
[2017-12-30] MEDS: Multiple Vitamins Tab PO SCH (09:28)
[2017-12-30] MEDS: Saccharomyces Boulardi 250 mg Cap PO SCH ×2 (09:29→17:48)
--- NOTE | 2017-12-30 09:32 | CP.PCM.PN ---
<Kenrick Aguilar - Last Filed: 12/30/17 17:14> Subjective - Date & Time of Evaluation Date of Evaluation: 12/30/17 Time of Evaluation: 09:32 - Subjective Subjective: Progress note for hospitalist service Patient seen and examined at bedside. He states that he currently has continued drainage from his left elbow, with packing in place. He denies fevers, chills, dizziness, lightheadedness, chest pain, shortness of breath, palpitations, cough, abdominal pain, nausea, vomiting, diarrhea, constipation, leg pain. He states his left leg feels slightly more swollen than his right. He states he has some pain on his right collar bone with no recent trauma. Objective - Vital Signs/Intake and Output Vital Signs (last 24 hours): Temp Pulse Resp BP Pulse Ox 97.7 F 63 20 108/70 99 12/30/17 08:18 12/30/17 08:18 12/30/17 08:18 12/30/17 08:18 12/30/17 08:18 Intake and Output: 12/30/17 12/30/17 06:59 18:59 Intake Total 100 Balance 100 - Medications Medications: Current Medications Aripiprazole (Abilify) 15 mg PO DAILY [facility] Last Admin: 12/29/17 10:35 Dose: 15 mg Bacitracin (Bacitracin) 1 gm TOP Q6H PRN PRN Reason: Abrasion Last Admin: 12/24/17 18:30 Dose: 1 gm Bupropion HCl (Wellbutrin) 150 mg PO DAILY [facility] Last Admin: 12/30/17 09:29 Dose: 150 mg Clindamycin HCl (Cleocin) 300 mg PO TID [facility]; Protocol Stop: 01/08/18 23:55 Last Admin: 12/30/17 09:28 Dose: 300 mg Folic Acid (Folic Acid) 1 mg PO DAILY [facility] Last Admin: 12/30/17 09:29 Dose: 1 mg Haloperidol (Haldol) 5 mg PO Q4 PRN PRN Reason: Agitation Hydroxyzine HCl (Atarax) 50 mg PO Q6 PRN PRN Reason: Anxiety Multivitamins (Hexavitamin) 1 tab PO DAILY [facility] Last Admin: 12/30/17 09:28 Dose: 1 tab Nicotine (Nicoderm Cq) 1 patch TD DAILY [facility] Last Admin: 12/30/17 09:29 Dose: 1 patch Oxycodone/Acetaminophen (Percocet 5/325 Mg Tab) 1 tab PO Q4H PRN PRN Reason: Pain, moderate (4-7) Stop: 12/31/17 18:24 Last Admin: 12/30/17 09:28 Dose: 1 tab Saccharomyces Boulardii (Florastor) 250 mg PO BID [facility] Last Admin: 12/30/17 09:29 Dose: 250 mg Thiamine HCl (Vitamin B1 Tab) 100 mg PO DAILY [facility] Last Admin: 12/30/17 09:29 Dose: 100 mg Trazodone HCl (Desyrel) 150 mg PO HS PRN PRN Reason: Insomnia Last Admin: 12/28/17 23:32 Dose: 150 mg - Labs Labs: 12/29/17 08:22 12/29/17 11:24 PT 12.0 SECONDS (9.7-12.2) 12/28/17 11:56 INR 1.1 12/28/17 11:56 APTT 36 SECONDS (21-34) H 12/28/17 11:56 - Constitutional Appears: Well, No Acute Distress - Head Exam Head Exam: ATRAUMATIC, NORMOCEPHALIC - Eye Exam Eye Exam: EOMI - ENT Exam ENT Exam: Mucous Membranes Moist - Neck Exam Neck Exam: Full ROM. absent: Lymphadenopathy, Tenderness, Thyromegaly - Respiratory Exam Respiratory Exam: Clear to Ausculation Bilateral. absent: Rales, Rhonchi, Wheezes, Respiratory Distress, Stridor Additional comments: right sternoclavicular joint more prominent than left sternoclavicular joint. nontender to palpation. Good ROM of right shoulder and left shoulder. - Cardiovascular Exam Cardiovascular Exam: REGULAR RHYTHM, +S1, +S2. absent: Gallop, Rubs, Murmur - GI/Abdominal Exam GI & Abdominal Exam: Soft, Normal Bowel Sounds. absent: Distended, Firm, Guarding, Rigid, Tenderness, Organomegaly - Extremities Exam Extremities Exam: absent: Calf Tenderness, Tenderness Additional comments: Left elbow: erythema around abscess with packing in place, no active purulent drainage. LLE slight more edematous than RLE. - Back Exam Back Exam: absent: CVA tenderness (L), CVA tenderness (R) - Neurological Exam Neurological Exam: Alert, Awake, Oriented x3 - Psychiatric Exam Psychiatric exam: Normal Affect, Normal Mood - Skin Skin Exam: Dry, Intact, Warm Assessment and Plan - Assessment and Plan (Free Text) Plan: Assessment: 43 year old male with history of depression admitted for psychiatric treatment. Medicine consulted for evaluation of left elbow wound. He's POD#2 of L elbow inc ision and drainage. Plan: Olecranon Cellulitis with Bursitis - Remains afebrile, no leukocytosis - XR L elbow: soft tissue swelling, suggesting olecranon bursitis - Left elbow MRI: Limited study as the patient could not tolerate gadolinium. Extensive motion artifact. 1. At the level of the olecranon bursa, there is a 1.4 x.4 x 5.7 centimeter lobulated heterogeneous increased STIR signal intensity collection. This is suggestive for an underlying olecranon bursitis with superimposed acute inflammatory and or infectious changes not excluded. Please note no contrast was given on this study, markedly limiting evaluation for abscess formation. Prominent reticulation and edema within the adjacent subcutaneous soft tissues. No gross signal abnormality within the adjacent olecranon to suggest an acute osteomyelitis. 2. Heterogeneity of the visualized marrow within the proximal radius with patchy decreased T1 signal suggestive for hematopoietic marrow reconversion. 3. Small elbow joint effusion. - Wound Cx: MRSA - Meds: Clindamycin (12/26 -12/28) Merrem 500mg IV (12/28 -12/29) Switched to PO Clindamycin 300mg po TID (started 12/29), plan to continue Cl indamycin for 7 days. Florastor 250 mg PO daily Tylenol 650mg PO q6h PRN pain Percocet 1 tab Q4 PRN - Isolation, contact precautions - Gen Sx consulted: Dr. Lloyd, help appreciated Daily packing changes I&D wound culture : sensitive to Clindamycin POD#2 L elbow I&D, dressings c/d/i EKG NSR at [address] changes CXR no acute disease Left lower extremity swelling - Venous Dopplers (12/29): unable to visualize peroneal veins due to swelling, no other abnormalities. History of depression with psychotic features - Patient currently denies suicidal or homicidal thoughts with no auditory or visual hallucinations. - Dr. Owusu on board, help appreciated - Meds: Ability 15mg PO Wellbutrin 150mg PO daily Haldol 5mg PO Q4 PRN Atarax 50mg PO Q6 PRN Nicotine patch Trazodone 150mg PO HS PRN Case discussed with Dr. Lyn Aguilar, PGY1 <Nahun Nicholson H - Last Filed: 12/30/17 18:16> Objective - Vital Signs/Intake and Output Vital Signs (last 24 hours): Temp Pulse Resp BP Pulse Ox 97.8 F 70 20 117/71 7 L 12/30/17 15:00 12/30/17 15:00 12/30/17 15:00 12/30/17 15:00 12/30/17 15:00 Intake and Output: 12/30/17 12/30/17 06:59 18:59 Intake Total 100 600 Balance 100 600 - Medications Medications: Current Medications Aripiprazole (Abilify) 15 mg PO DAILY [facility] Last Admin: 12/30/17 10:18 Dose: 15 mg Bacitracin (Bacitracin) 1 gm TOP Q6H PRN PRN Reason: Abrasion Last Admin: 12/24/17 18:30 Dose: 1 gm Bupropion HCl (Wellbutrin) 150 mg PO DAILY [facility] Last Admin: 12/30/17 09:29 Dose: 150 mg Clindamycin HCl (Cleocin) 300 mg PO TID [facility]; Protocol Stop: 01/08/18 23:55 Last Admin: 12/30/17 17:48 Dose: 300 mg Folic Acid (Folic Acid) 1 mg PO DAILY [facility] Last Admin: 12/30/17 09:29 Dose: 1 mg Haloperidol (Haldol) 5 mg PO Q4 PRN PRN Reason: Agitation Hydroxyzine HCl (Atarax) 50 mg PO Q6 PRN PRN Reason: Anxiety Multivitamins (Hexavitamin) 1 tab PO DAILY [facility] Last Admin: 12/30/17 09:28 Dose: 1 tab Nicotine (Nicoderm Cq) 1 patch TD DAILY [facility] Last Admin: 12/30/17 09:29 Dose: 1 patch Oxycodone/Acetaminophen (Percocet 5/325 Mg Tab) 1 tab PO Q4H PRN PRN Reason: Pain, moderate (4-7) Stop: 12/31/17 18:24 Last Admin: 12/30/17 14:00 Dose: 1 tab Saccharomyces Boulardii (Florastor) 250 mg PO BID [facility] Last Admin: 12/30/17 17:48 Dose: 250 mg Thiamine HCl (Vitamin B1 Tab) 100 mg PO DAILY [facility] Last Admin: 12/30/17 09:29 Dose: 100 mg Trazodone HCl (Desyrel) 150 mg PO HS PRN PRN Reason: Insomnia Last Admin: 12/28/17 23:32 Dose: 150 mg - Labs Labs: 12/30/17 10:59 12/30/17 10:59 PT 12.0 SECONDS (9.7-12.2) 12/28/17 11:56 INR 1.1 12/28/17 11:56 APTT 36 SECONDS (21-34) H 12/28/17 11:56 Attending/Attestation - Attestation I have personally seen and examined this patient.: Yes I have fully participated in the care of the patient.: Yes I have reviewed all pertinent clinical information, including history, physical exam and plan: Yes Notes (Text): 12/30/17 18:13 Medical attending: Patient was seen and examined by me with the medical donation professional Agree with the above note by the resident Patient currently is on PO clindamycin at this time. The is able to flex and extend elbow. No pain in the shoulder or distal to elbow. Denied fevers or chills. Intially we considered moving patient back to however later we were advised to keep on the floors for now Nahun Nicholson
[2017-12-30 11:10] LABS: BASO % 0.9 % (0.0-2.0); EOS # 0.2 K/uL (0.0-0.7); EOS % 4.7 % (0.0-4.0); HEMOGLOBIN 12.2 g/dL (12.0-18.0); LYMPH # 0.8 K/uL (1.0-4.3); MEAN CELL VOLUME 82.7 fL (80.0-94.0); MEAN CORPUSCULAR HEMOGLOBIN 27.5 pg (27.0-31.0); MEAN CORPUSCULAR HGB CONC 33.2 g/dL (33.0-37.0); MEAN PLATELET VOLUME 7.5 fL (7.2-11.7); MONO # 0.8 K/uL (0.0-0.8); MONO % 17.3 % (0.0-10.0); NEUT # 2.6 K/uL (1.8-7.0); NEUT % 59.1 % (50.0-75.0); RBC 4.43 Mil/uL (4.40-5.90); RED CELL DISTRIBUTION WIDTH 18.9 % (11.5-14.5); WHITE BLOOD COUNT 4.4 K/uL (4.8-10.8)
[2017-12-30 12:03] LABS: ALBUMIN 3.6 g/dL (3.5-5.0); BLOOD UREA NITROGEN 10 mg/dL (9-20); CALCIUM 8.5 mg/dl (8.6-10.4); GFR NON-AFRICAN AMERICAN > 60
[2017-12-30 12:04] LABS: ALB/GLOB RATIO 1.1 (1.0-2.1); ALT/SGPT 55 U/L (21-72); AST/SGOT 49 U/L (17-59)
--- NOTE | 2017-12-30 15:25 | PCM.PYCHPN ---
Psychiatric Progress Note - Psychiatric Progress Note Patient seen today, length of contact: 15 min Patient Chief Complaint: I am feeling depressed. Problems Identified/Issues Discussed: Patient seen and evaluated, chart reviewed and discussed with the nurse. Pt reports depressed mood, and reports feelings of hopelessness and helplessness. He remained isolated and withdrawn, and confined to his room. He reports auditory hallucinations, and paranoia. He appears paranoid and delusional. Patient is compliant with medications and denies any side effects. Symptoms are improving but pt needs more time to stabilize. Support and psychoeducation given. Medication Change: No (ADD ABILIFY) Medical Record Reviewed: Yes Mental Status Examination - Cognitive Function Orientation: Person, Place, Situation, Time Memory: Intact Attention: WNL Concentration: WNL Association: WNL Fund of Knowledge: WNL - Mood Mood: Depressed, Anxious - Affect Affect: Constricted, Depressed - Speech Speech: Appropriate, Soft - Formal Thought Process Formal Thought Process: Delusions - Suicidal Ideation Suicidal Ideation: No - Homicidal Ideation Homicidal Ideation: No Goal/Treatment Plan - Goal/Treatment Plan Need for Continued Stay: Severe depression anxiety, Severe functional impairment Progress Toward Problem(s) and Goals/Treatment Plan: Major depressive disorder recurrent severe with psychotic features CBT Psychoeducation Supportive therapy, group therapy, individual therapy Hydroxyzine 25 mg by mouth every 6 hours when necessary DC Seroquel 100 mg PO QHS Trazodone 100 mg Wellbutrin 75 mg po Daily Olanzapine 5 mg HS - Smoking Cessation Smoking Cessation Initiated: No
--- NOTE | 2017-12-30 15:26 | CP.PCM.PN ---
<Sasha Valdovinos - Last Filed: 12/30/17 15:19> Subjective - Date & Time of Evaluation Date of Evaluation: 12/30/17 Time of Evaluation: 10:00 - Subjective Subjective: Surgery: Dr. Lloyd Pt seen and examined. No acute overnight events. Admits to some incisional pain around the left elbow but states it's well controlled with pain meds. Denies nausea/vomiting, fevers/chills. Objective - Vital Signs/Intake and Output Vital Signs (last 24 hours): Temp Pulse Resp BP Pulse Ox 97.7 F 63 20 108/70 99 12/30/17 08:18 12/30/17 08:18 12/30/17 08:18 12/30/17 08:18 12/30/17 08:18 Intake and Output: 12/30/17 12/30/17 06:59 18:59 Intake Total 100 600 Balance 100 600 - Medications Medications: Current Medications Aripiprazole (Abilify) 15 mg PO DAILY [facility] Last Admin: 12/30/17 10:18 Dose: 15 mg Bacitracin (Bacitracin) 1 gm TOP Q6H PRN PRN Reason: Abrasion Last Admin: 12/24/17 18:30 Dose: 1 gm Bupropion HCl (Wellbutrin) 150 mg PO DAILY [facility] Last Admin: 12/30/17 09:29 Dose: 150 mg Clindamycin HCl (Cleocin) 300 mg PO TID [facility]; Protocol Stop: 01/08/18 23:55 Last Admin: 12/30/17 13:06 Dose: 300 mg Folic Acid (Folic Acid) 1 mg PO DAILY [facility] Last Admin: 12/30/17 09:29 Dose: 1 mg Haloperidol (Haldol) 5 mg PO Q4 PRN PRN Reason: Agitation Hydroxyzine HCl (Atarax) 50 mg PO Q6 PRN PRN Reason: Anxiety Multivitamins (Hexavitamin) 1 tab PO DAILY [facility] Last Admin: 12/30/17 09:28 Dose: 1 tab Nicotine (Nicoderm Cq) 1 patch TD DAILY [facility] Last Admin: 12/30/17 09:29 Dose: 1 patch Oxycodone/Acetaminophen (Percocet 5/325 Mg Tab) 1 tab PO Q4H PRN PRN Reason: Pain, moderate (4-7) Stop: 12/31/17 18:24 Last Admin: 12/30/17 14:00 Dose: 1 tab Saccharomyces Boulardii (Florastor) 250 mg PO BID [facility] Last Admin: 12/30/17 09:29 Dose: 250 mg Thiamine HCl (Vitamin B1 Tab) 100 mg PO DAILY [facility] Last Admin: 12/30/17 09:29 Dose: 100 mg Trazodone HCl (Desyrel) 150 mg PO HS PRN PRN Reason: Insomnia Last Admin: 12/28/17 23:32 Dose: 150 mg - Labs Labs: 12/30/17 10:59 12/30/17 10:59 PT 12.0 SECONDS (9.7-12.2) 12/28/17 11:56 INR 1.1 12/28/17 11:56 APTT 36 SECONDS (21-34) H 12/28/17 11:56 - Constitutional Appears: Well, No Acute Distress - Head Exam Head Exam: ATRAUMATIC, NORMOCEPHALIC - ENT Exam ENT Exam: Mucous Membranes Moist - Respiratory Exam Respiratory Exam: NORMAL BREATHING PATTERN - Cardiovascular Exam Cardiovascular Exam: RRR - GI/Abdominal Exam GI & Abdominal Exam: Soft - Extremities Exam Additional comments: Left elbow with erythema around I&D site, improved. Small amount of packing in wound, clean/dry - Neurological Exam Neurological Exam: Alert, Awake, Oriented x3 - Skin Skin Exam: Dry, Warm Assessment and Plan - Assessment and Plan (Free Text) Assessment: 47M with Left elbow abscess s/p I&D; POD#2 Plan: - daily packing changes - ABX - ok for transfer back to [facility] - d/w Dr. Gabino Valdovinos <Nic Lloyd - Last Filed: 01/02/18 19:59> Objective - Vital Signs/Intake and Output Vital Signs (last 24 hours): Temp Pulse Resp BP Pulse Ox 97.8 F 84 20 105/73 97 01/02/18 15:00 01/02/18 15:00 01/02/18 15:00 01/02/18 15:00 01/02/18 15:00 - Medications Medications: Current Medications Aripiprazole (Abilify) 15 mg PO DAILY [facility] Last Admin: 01/02/18 10:06 Dose: 15 mg Bacitracin (Bacitracin) 1 gm TOP Q6H PRN PRN Reason: Abrasion Last Admin: 12/24/17 18:30 Dose: 1 gm Bupropion HCl (Wellbutrin) 150 mg PO DAILY [facility] Last Admin: 01/02/18 10:07 Dose: 150 mg Clindamycin HCl (Cleocin) 300 mg PO TID [facility]; Protocol Stop: 01/08/18 23:55 Last Admin: 01/02/18 18:22 Dose: 300 mg Emollient Ointment (Vaseline Oint) 5 gm TOP Q4H PRN PRN Reason: Dry skin Last Admin: 01/01/18 12:15 Dose: 5 gm Folic Acid (Folic Acid) 1 mg PO DAILY [facility] Last Admin: 01/02/18 10:07 Dose: 1 mg Gabapentin (Neurontin) 300 mg PO BID [facility] Last Admin: 01/02/18 18:22 Dose: 300 mg Haloperidol (Haldol) 5 mg PO Q4 PRN PRN Reason: Agitation Hydroxyzine HCl (Atarax) 50 mg PO Q6 PRN PRN Reason: Anxiety Multivitamins (Hexavitamin) 1 tab PO DAILY [facility] Last Admin: 01/02/18 10:07 Dose: 1 tab Nicotine (Nicoderm Cq) 1 patch TD DAILY [facility] Last Admin: 01/02/18 10:06 Dose: 1 patch Oxycodone/Acetaminophen (Percocet 5/325 Mg Tab) 1 tab PO Q4H PRN PRN Reason: Pain Stop: 01/03/18 21:02 Last Admin: 01/02/18 14:54 Dose: 1 tab Saccharomyces Boulardii (Florastor) 250 mg PO BID [facility] Last Admin: 01/02/18 18:22 Dose: 250 mg Thiamine HCl (Vitamin B1 Tab) 100 mg PO DAILY [facility] Last Admin: 01/02/18 10:12 Dose: 100 mg Trazodone HCl (Desyrel) 150 mg PO HS PRN PRN Reason: Insomnia Last Admin: 01/01/18 22:13 Dose: 150 mg Vitamin A (Vitamin A & D Oint Ud Foilpak) 1 ea TOP Q8 PRN PRN Reason: Dry skin - Labs Labs: 01/02/18 08:11 01/02/18 08:11 PT 12.0 SECONDS (9.7-12.2) 12/28/17 11:56 INR 1.1 12/28/17 11:56 APTT 36 SECONDS (21-34) H 12/28/17 11:56 Attending/Attestation - Attestation I have personally seen and examined this patient.: Yes I have fully participated in the care of the patient.: Yes I have reviewed all pertinent clinical information, including history, physical exam and plan: Yes Notes (Text): Pt was seen and examined at bedside Agree with above note and assessment Pt is improving clinically Local wound care c.w current mx Plan d.w pt in detail
--- NOTE | 2017-12-30 15:31 | PCM.PYCHPN ---
Psychiatric Progress Note - Psychiatric Progress Note Patient seen today, length of contact: 15 min Patient Chief Complaint: I am feeling better.' Problems Identified/Issues Discussed: Patient seen and evaluated, chart reviewed and discussed with the nurse. Pt reports improvement in his mood and improvement in the paranoia. He denies any auditory or visual hallucinations. He denies any suicidal ideation or any homicidal ideation. Patient is compliant with medications and denies any side effects. Symptoms are improving but pt needs more time to stabilize. Support and psychoeducation given. Medication Change: No Medical Record Reviewed: Yes Mental Status Examination - Cognitive Function Orientation: Person, Place, Situation, Time Memory: Intact Attention: WNL Concentration: WNL Association: WNL Fund of Knowledge: WNL - Mood Mood: Depressed, Anxious - Affect Affect: Constricted, Depressed - Speech Speech: Appropriate, Soft - Formal Thought Process Formal Thought Process: No Impairment - Suicidal Ideation Suicidal Ideation: No - Homicidal Ideation Homicidal Ideation: No Goal/Treatment Plan - Goal/Treatment Plan Need for Continued Stay: Other Progress Toward Problem(s) and Goals/Treatment Plan: Major depressive disorder recurrent severe with psychotic features CBT Psychoeducation Supportive therapy, group therapy, individual therapy Hydroxyzine 25 mg by mouth every 6 hours when necessary Trazodone 150 mg Wellbutrin 150 mg po Daily Abilify 15 mg by mouth daily at bedtime Patient psychiatric stable and cleared for discharge
--- NOTE | 2017-12-30 15:53 | VASCLAB ---
Date of service: 12/29/2017 PROCEDURE: Left Lower Extremity Venous Duplex Exam. HISTORY: LLE swelling PRIORS: None. TECHNIQUE: Left common femoral, femoral, popliteal and posterior tibial, peroneal and great saphenous veins were evaluated. Flow was assessed with color Doppler, compressibility, assessment of phasic flow and augmentation response. Report prepared by GEORGES Andrew FINDINGS: LEFT: 1. Common Femoral Vein: 1.1. Compressibility - Fully compressible: Thrombus - None : Flow - Phasic: Augmentation -Normal: Reflux - None. 2. Femoral Vein: 2.1. Compressibility - Fully compressible: Thrombus - None: Flow - Phasic: Augmentation -Normal: Reflux - Moderate 3.63s 3. Popliteal Vein: 3.1. Compressibility - Fully compressible: Thrombus - None: Flow - Phasic: Augmentation -Normal: Reflux - Severe >4.62s 4. Posterior Tibial Vein: 4.1. Compressibility - Fully compressible: Thrombus - None: Flow - Phasic: Augmentation -Normal: Reflux - None. 5. Peroneal Vein: 5.1. Unable to visualize due to swelling. 6. Great Saphenous Vein: 6.1. Compressibility - Fully compressible: Thrombus - None: Flow - Phasic: Augmentation - Normal: Reflux - None. OTHER FINDINGS: Normal venous flow noted in the RIGHT common femoral vein. IMPRESSION: No evidence of deep or superficial vein thrombosis of the examined veins, in the left lower extremity. Valvular incompetence noted of the left femoral and popliteal veins.
--- NOTE | 2017-12-30 21:34 | CARD ---
APPROVED REPORT Date of service: 12/28/2017 EKG Measurement Heart [id number] <Conclusion> Normal sinus rhythm Normal ECG
[2017-12-31] MEDS: Oxycodone/Acetaminophen 5/325 mg Tab PO PRN ×4 (05:46→21:18)
--- NOTE | 2017-12-31 07:09 | CP.PCM.PN ---
Subjective - Date & Time of Evaluation Date of Evaluation: 12/31/17 Time of Evaluation: 07:09 - Subjective Subjective: Progress note for Hospitalist service Patient seen and examined at bedside. He states that he is feeling much better but has continued drainage from left elbow. He denies fevers, chills, dizziness, lightheadedness, chest pain, shortness of breath, palpitations, cough, abdominal pain, nausea, vomiting, diarrhea, constipation, leg pain. Objective - Vital Signs/Intake and Output Vital Signs (last 24 hours): Temp Pulse Resp BP Pulse Ox 99.9 F H 80 20 174/79 H 96 12/31/17 04:35 12/31/17 04:35 12/31/17 04:35 12/31/17 04:35 12/31/17 04:35 - Medications Medications: Current Medications Aripiprazole (Abilify) 15 mg PO DAILY COUNTS INCLUDE 234 BEDS AT THE [facility] Last Admin: 12/30/17 10:18 Dose: 15 mg Bacitracin (Bacitracin) 1 gm TOP Q6H PRN PRN Reason: Abrasion Last Admin: 12/24/17 18:30 Dose: 1 gm Bupropion HCl (Wellbutrin) 150 mg PO DAILY COUNTS INCLUDE 234 BEDS AT THE [facility] Last Admin: 12/30/17 09:29 Dose: 150 mg Clindamycin HCl (Cleocin) 300 mg PO TID COUNTS INCLUDE 234 BEDS AT THE [facility]; Protocol Stop: 01/08/18 23:55 Last Admin: 12/30/17 17:48 Dose: 300 mg Folic Acid (Folic Acid) 1 mg PO DAILY COUNTS INCLUDE 234 BEDS AT THE [facility] Last Admin: 12/30/17 09:29 Dose: 1 mg Haloperidol (Haldol) 5 mg PO Q4 PRN PRN Reason: Agitation Hydroxyzine HCl (Atarax) 50 mg PO Q6 PRN PRN Reason: Anxiety Multivitamins (Hexavitamin) 1 tab PO DAILY COUNTS INCLUDE 234 BEDS AT THE [facility] Last Admin: 12/30/17 09:28 Dose: 1 tab Nicotine (Nicoderm Cq) 1 patch TD DAILY COUNTS INCLUDE 234 BEDS AT THE [facility] Last Admin: 12/30/17 09:29 Dose: 1 patch Oxycodone/Acetaminophen (Percocet 5/325 Mg Tab) 1 tab PO Q4H PRN PRN Reason: Pain, moderate (4-7) Stop: 12/31/17 18:24 Last Admin: 12/31/17 05:46 Dose: 1 tab Saccharomyces Boulardii (Florastor) 250 mg PO BID COUNTS INCLUDE 234 BEDS AT THE [facility] Last Admin: 12/30/17 17:48 Dose: 250 mg Thiamine HCl (Vitamin B1 Tab) 100 mg PO DAILY COUNTS INCLUDE 234 BEDS AT THE [facility] Last Admin: 12/30/17 09:29 Dose: 100 mg Trazodone HCl (Desyrel) 150 mg PO HS PRN PRN Reason: Insomnia Last Admin: 12/30/17 22:37 Dose: 150 mg - Labs Labs: 12/30/17 10:59 12/30/17 10:59 PT 12.0 SECONDS (9.7-12.2) 12/28/17 11:56 INR 1.1 12/28/17 11:56 APTT 36 SECONDS (21-34) H 12/28/17 11:56 - Constitutional Appears: Well, No Acute Distress - Head Exam Head Exam: ATRAUMATIC, NORMOCEPHALIC - Eye Exam Eye Exam: EOMI - ENT Exam ENT Exam: Mucous Membranes Moist - Neck Exam Neck Exam: Full ROM - Respiratory Exam Respiratory Exam: Clear to Ausculation Bilateral. absent: Rales, Rhonchi, Wheezes, Respiratory Distress, Stridor - Cardiovascular Exam Cardiovascular Exam: REGULAR RHYTHM, +S1, +S2. absent: Gallop, Rubs, Murmur - GI/Abdominal Exam GI & Abdominal Exam: Soft, Normal Bowel Sounds. absent: Distended, Firm, Guarding, Rigid, Tenderness, Organomegaly - Extremities Exam Extremities Exam: absent: Calf Tenderness, Pedal Edema Additional comments: Left elbow: improved erythema around abscess, no packing in place, no active drainage. - Neurological Exam Neurological Exam: Alert, Awake, Oriented x3 - Psychiatric Exam Psychiatric exam: Normal Affect, Normal Mood - Skin Skin Exam: Dry, Warm Assessment and Plan - Assessment and Plan (Free Text) Plan: Assessment: 43 year old male with history of depression admitted for psychiatric treatment. Medicine consulted for evaluation of left elbow wound. He's POD#3 of L elbow incision and drainage. Plan: Olecranon Cellulitis with Bursitis - Remains afebrile, no leukocytosis - XR L elbow: soft tissue swelling, suggesting olecranon bursitis - Left elbow MRI: Limited study as the patient could not tolerate gadolinium. Extensive motion artifact. 1. At the level of the olecranon bursa, there is a 1.4 x.4 x 5.7 centimeter lobulated heterogeneous increased STIR signal intensity collection. This is suggestive for an underlying olecranon bursitis with superimposed acute inflammatory and or infectious changes not excluded. Please note no contrast was given on this study, markedly limiting evaluation for abscess formation. Prominent reticulation and edema within the adjacent subcutaneous soft tissues. No gross signal abnormality within the adjacent olecranon to suggest an acute osteomyelitis. 2. Heterogeneity of the visualized marrow within the proximal radius with patchy decreased T1 signal suggestive for hematopoietic marrow reconversion. 3. Small elbow joint effusion. - Wound Cx: MRSA - Meds: Clindamycin (12/26 -12/28) Merrem 500mg IV (12/28 -12/29) Switched to PO Clindamycin 300mg po TID (started 12/29), plan to continue Clindamycin for 7 days. Florastor 250 mg PO daily Tylenol 650mg PO q6h PRN pain Percocet 1 tab Q4 PRN - Isolation, contact precautions - Gen Sx consulted: Dr. Lloyd, help appreciated Daily packing changes I&D wound culture : sensitive to Clindamycin POD#3 L elbow I&D, dressings c/d/i EKG NSR at [address] changes CXR no acute disease Left lower extremity swelling - Venous Dopplers (12/29): unable to visualize peroneal veins due to swelling, no other abnormalities. History of depression with psychotic features - Patient currently denies suicidal or homicidal thoughts with no auditory or visual hallucinations. - Dr. Owusu on board, help appreciated - Meds: Ability 15mg PO Wellbutrin 150mg PO daily Haldol 5mg PO Q4 PRN Atarax 50mg PO Q6 PRN Nicotine patch Trazodone 150mg PO HS PRN Case discussed with Dr. Lyn Aguilar, PGY1
[2017-12-31 07:17] LABS: BASO # 0.1 K/uL (0.0-0.2); EOS # 0.2 K/uL (0.0-0.7); LYMPH # 0.7 K/uL (1.0-4.3); MEAN PLATELET VOLUME 7.4 fL (7.2-11.7); NEUT # 1.6 K/uL (1.8-7.0); WHITE BLOOD COUNT 3.2 K/uL (4.8-10.8)
[2017-12-31 07:35] LABS: BASO % 2.9 % (0.0-2.0); EOS % 5.2 % (0.0-4.0); HEMOGLOBIN 11.6 g/dL (12.0-18.0); LYMPH % 23.2 % (20.0-40.0); MEAN CELL VOLUME 83.5 fL (80.0-94.0); MEAN CORPUSCULAR HEMOGLOBIN 27.6 pg (27.0-31.0); MEAN CORPUSCULAR HGB CONC 33.1 g/dL (33.0-37.0); MONO # 0.5 K/uL (0.0-0.8); NEUT % 51.7 % (50.0-75.0); NRBC % 0.1 % (0.0-2.0); RBC 4.18 Mil/uL (4.40-5.90); RED CELL DISTRIBUTION WIDTH 19.6 % (11.5-14.5)
[2017-12-31 08:06] LABS: ALB/GLOB RATIO 1.1 (1.0-2.1); ALBUMIN 3.2 g/dL (3.5-5.0); ALT/SGPT 50 U/L (21-72); AST/SGOT 48 U/L (17-59); BLOOD UREA NITROGEN 11 mg/dL (9-20); CALCIUM 8.5 mg/dl (8.6-10.4); GFR NON-AFRICAN AMERICAN > 60
[2017-12-31] MEDS: Multiple Vitamins Tab PO SCH (10:21)
[2017-12-31] MEDS: Saccharomyces Boulardi 250 mg Cap PO SCH ×2 (11:01→17:20)
--- NOTE | 2017-12-31 11:22 | CP.PCM.PN ---
<Sasha Valdovinos - Last Filed: 12/31/17 11:20> Subjective - Date & Time of Evaluation Date of Evaluation: 12/31/17 Time of Evaluation: 08:00 - Subjective Subjective: Surgery: Dr. Lloyd Pt seen and examined. No acute overnight events. States he feels well and pain in his left elbow has improved. He denies other complaints at this time. Denies nausea/vomiting, fevers/chills. Objective - Vital Signs/Intake and Output Vital Signs (last 24 hours): Temp Pulse Resp BP Pulse Ox 97.5 F L 64 20 104/64 99 12/31/17 08:20 12/31/17 08:20 12/31/17 08:20 12/31/17 08:20 12/31/17 08:20 Intake and Output: 12/31/17 12/31/17 06:59 18:59 Intake Total 100 Balance 100 - Medications Medications: Current Medications Aripiprazole (Abilify) 15 mg PO DAILY [facility] Last Admin: 12/31/17 10:27 Dose: 15 mg Bacitracin (Bacitracin) 1 gm TOP Q6H PRN PRN Reason: Abrasion Last Admin: 12/24/17 18:30 Dose: 1 gm Bupropion HCl (Wellbutrin) 150 mg PO DAILY [facility] Last Admin: 12/31/17 10:23 Dose: 150 mg Clindamycin HCl (Cleocin) 300 mg PO TID [facility]; Protocol Stop: 01/08/18 23:55 Last Admin: 12/31/17 10:22 Dose: 300 mg Folic Acid (Folic Acid) 1 mg PO DAILY [facility] Last Admin: 12/31/17 11:02 Dose: 1 mg Haloperidol (Haldol) 5 mg PO Q4 PRN PRN Reason: Agitation Hydroxyzine HCl (Atarax) 50 mg PO Q6 PRN PRN Reason: Anxiety Multivitamins (Hexavitamin) 1 tab PO DAILY [facility] Last Admin: 12/31/17 10:21 Dose: 1 tab Nicotine (Nicoderm Cq) 1 patch TD DAILY [facility] Last Admin: 12/31/17 10:21 Dose: 1 patch Oxycodone/Acetaminophen (Percocet 5/325 Mg Tab) 1 tab PO Q4H PRN PRN Reason: Pain, moderate (4-7) Stop: 12/31/17 18:24 Last Admin: 12/31/17 11:01 Dose: 1 tab Saccharomyces Boulardii (Florastor) 250 mg PO BID [facility] Last Admin: 12/31/17 11:01 Dose: 250 mg Thiamine HCl (Vitamin B1 Tab) 100 mg PO DAILY [facility] Last Admin: 12/31/17 11:01 Dose: 100 mg Trazodone HCl (Desyrel) 150 mg PO HS PRN PRN Reason: Insomnia Last Admin: 12/30/17 22:37 Dose: 150 mg - Labs Labs: 12/31/17 07:09 12/31/17 07:09 PT 12.0 SECONDS (9.7-12.2) 12/28/17 11:56 INR 1.1 12/28/17 11:56 APTT 36 SECONDS (21-34) H 12/28/17 11:56 - Constitutional Appears: Well, No Acute Distress - Head Exam Head Exam: ATRAUMATIC, NORMOCEPHALIC - Eye Exam Eye Exam: Normal appearance - ENT Exam ENT Exam: Mucous Membranes Moist - Respiratory Exam Respiratory Exam: NORMAL BREATHING PATTERN - Cardiovascular Exam Cardiovascular Exam: RRR - GI/Abdominal Exam GI & Abdominal Exam: Soft - Extremities Exam Additional comments: left elbow with improved erythema around I&D site, no purulent drainage, no fluctuance - Neurological Exam Neurological Exam: Alert, Awake, Oriented x3 - Skin Skin Exam: Dry, Warm Assessment and Plan - Assessment and Plan (Free Text) Assessment: 47M s/p I&D of L elbow abscess Plan: - cont ABx - local wound care - keep on med/surg until further improvement in erythema per Dr. Gabino Valdovinos <Nic Lloyd - Last Filed: 01/02/18 20:01> Objective - Vital Signs/Intake and Output Vital Signs (last 24 hours): Temp Pulse Resp BP Pulse Ox 97.8 F 84 20 105/73 97 01/02/18 15:00 01/02/18 15:00 01/02/18 15:00 01/02/18 15:00 01/02/18 15:00 - Medications Medications: Current Medications Aripiprazole (Abilify) 15 mg PO DAILY [facility] Last Admin: 01/02/18 10:06 Dose: 15 mg Bacitracin (Bacitracin) 1 gm TOP Q6H PRN PRN Reason: Abrasion Last Admin: 12/24/17 18:30 Dose: 1 gm Bupropion HCl (Wellbutrin) 150 mg PO DAILY [facility] Last Admin: 01/02/18 10:07 Dose: 150 mg Clindamycin HCl (Cleocin) 300 mg PO TID [facility]; Protocol Stop: 01/08/18 23:55 Last Admin: 01/02/18 18:22 Dose: 300 mg Emollient Ointment (Vaseline Oint) 5 gm TOP Q4H PRN PRN Reason: Dry skin Last Admin: 01/01/18 12:15 Dose: 5 gm Folic Acid (Folic Acid) 1 mg PO DAILY [facility] Last Admin: 01/02/18 10:07 Dose: 1 mg Gabapentin (Neurontin) 300 mg PO BID [facility] Last Admin: 01/02/18 18:22 Dose: 300 mg Haloperidol (Haldol) 5 mg PO Q4 PRN PRN Reason: Agitation Hydroxyzine HCl (Atarax) 50 mg PO Q6 PRN PRN Reason: Anxiety Multivitamins (Hexavitamin) 1 tab PO DAILY [facility] Last Admin: 01/02/18 10:07 Dose: 1 tab Nicotine (Nicoderm Cq) 1 patch TD DAILY [facility] Last Admin: 01/02/18 10:06 Dose: 1 patch Oxycodone/Acetaminophen (Percocet 5/325 Mg Tab) 1 tab PO Q4H PRN PRN Reason: Pain Stop: 01/03/18 21:02 Last Admin: 01/02/18 14:54 Dose: 1 tab Saccharomyces Boulardii (Florastor) 250 mg PO BID [facility] Last Admin: 01/02/18 18:22 Dose: 250 mg Thiamine HCl (Vitamin B1 Tab) 100 mg PO DAILY [facility] Last Admin: 01/02/18 10:12 Dose: 100 mg Trazodone HCl (Desyrel) 150 mg PO HS PRN PRN Reason: Insomnia Last Admin: 01/01/18 22:13 Dose: 150 mg Vitamin A (Vitamin A & D Oint Ud Foilpak) 1 ea TOP Q8 PRN PRN Reason: Dry skin - Labs Labs: 01/02/18 08:11 01/02/18 08:11 PT 12.0 SECONDS (9.7-12.2) 12/28/17 11:56 INR 1.1 12/28/17 11:56 APTT 36 SECONDS (21-34) H 12/28/17 11:56 Attending/Attestation - Attestation I have personally seen and examined this patient.: Yes I have fully participated in the care of the patient.: Yes I have reviewed all pertinent clinical information, including history, physical exam and plan: Yes Notes (Text): Pt was seen and examined at bedside Agree with above note and assessment Pt is stable clinically IV antibiotics [place] wound care Plan d.w pt in detail
[2018-01-01] MEDS: Oxycodone/Acetaminophen 5/325 mg Tab PO PRN ×3 (04:52→15:45)
--- NOTE | 2018-01-01 07:01 | CP.PCM.PN ---
Subjective - Date & Time of Evaluation Date of Evaluation: 01/01/18 Time of Evaluation: 07:01 - Subjective Subjective: Progress note for Hospitalist service Patient seen and examined at bedside. He states his pain in his left elbow is much improved, however states he has mild shooting pain intermittently. He denies fevers, chills, chest pain, shortness of breath, abdominal pain, nausea, vomiting, diarrhea, leg pain. Objective - Vital Signs/Intake and Output Vital Signs (last 24 hours): Temp Pulse Resp BP Pulse Ox 97.3 F L 70 20 102/62 98 12/31/17 23:30 01/01/18 04:51 12/31/17 23:30 01/01/18 04:51 12/31/17 23:30 - Medications Medications: Current Medications Aripiprazole (Abilify) 15 mg PO DAILY [facility] Last Admin: 12/31/17 10:27 Dose: 15 mg Bacitracin (Bacitracin) 1 gm TOP Q6H PRN PRN Reason: Abrasion Last Admin: 12/24/17 18:30 Dose: 1 gm Bupropion HCl (Wellbutrin) 150 mg PO DAILY [facility] Last Admin: 12/31/17 10:23 Dose: 150 mg Clindamycin HCl (Cleocin) 300 mg PO TID [facility]; Protocol Stop: 01/08/18 23:55 Last Admin: 12/31/17 17:20 Dose: 300 mg Folic Acid (Folic Acid) 1 mg PO DAILY [facility] Last Admin: 12/31/17 11:02 Dose: 1 mg Haloperidol (Haldol) 5 mg PO Q4 PRN PRN Reason: Agitation Hydroxyzine HCl (Atarax) 50 mg PO Q6 PRN PRN Reason: Anxiety Multivitamins (Hexavitamin) 1 tab PO DAILY [facility] Last Admin: 12/31/17 10:21 Dose: 1 tab Nicotine (Nicoderm Cq) 1 patch TD DAILY [facility] Last Admin: 12/31/17 10:21 Dose: 1 patch Oxycodone/Acetaminophen (Percocet 5/325 Mg Tab) 1 tab PO Q4H PRN PRN Reason: Pain Stop: 01/03/18 21:02 Last Admin: 01/01/18 04:52 Dose: 1 tab Saccharomyces Boulardii (Florastor) 250 mg PO BID [facility] Last Admin: 12/31/17 17:20 Dose: 250 mg Thiamine HCl (Vitamin B1 Tab) 100 mg PO DAILY [facility] Last Admin: 12/31/17 11:01 Dose: 100 mg Trazodone HCl (Desyrel) 150 mg PO HS PRN PRN Reason: Insomnia Last Admin: 12/31/17 21:18 Dose: 150 mg - Labs Labs: 12/31/17 07:09 12/31/17 07:09 PT 12.0 SECONDS (9.7-12.2) 12/28/17 11:56 INR 1.1 12/28/17 11:56 APTT 36 SECONDS (21-34) H 12/28/17 11:56 - Constitutional Appears: Well, No Acute Distress - Head Exam Head Exam: ATRAUMATIC, NORMOCEPHALIC - Eye Exam Eye Exam: EOMI - ENT Exam ENT Exam: Mucous Membranes Moist - Respiratory Exam Respiratory Exam: Clear to Ausculation Bilateral. absent: Rales, Rhonchi, Wheezes, Respiratory Distress - Cardiovascular Exam Cardiovascular Exam: REGULAR RHYTHM, +S1, +S2. absent: Gallop, Rubs, Murmur - GI/Abdominal Exam GI & Abdominal Exam: Soft, Normal Bowel Sounds. absent: Distended, Firm, Guarding, Rigid, Tenderness, Organomegaly - Extremities Exam Extremities Exam: absent: Calf Tenderness, Pedal Edema Additional comments: Left elbow: improved erythema around abscess, no discharge. packing not present. no lymphangitis noted. - Neurological Exam Neurological Exam: Alert, Awake, Oriented x3 - Psychiatric Exam Psychiatric exam: Normal Affect, Normal Mood. absent: Homicidal Ideation, Suicidal Ideation Assessment and Plan - Assessment and Plan (Free Text) Plan: Assessment: 43 year old male with history of depression admitted for psychiatric treatment. Medicine consulted for evaluation of left elbow wound. He's POD#4 of L elbow incision and drainage. Plan: Olecranon Cellulitis with Bursitis - Remains afebrile, no leukocytosis - XR L elbow: soft tissue swelling, suggesting olecranon bursitis - Left elbow MRI: Limited study as the patient could not tolerate gadolinium. Extensive motion artifact. 1. At the level of the olecranon bursa, there is a 1.4 x.4 x 5.7 centimeter lobulated heterogeneous increased STIR signal intensity collection. This is suggestive for an underlying olecranon bursitis with superimposed acute inflammatory and or infectious changes not excluded. Please note no contrast was given on this study, markedly limiting evaluation for abscess formation. Prominent reticulation and edema within the adjacent subcutaneous soft tissues. No gross signal abnormality within the adjacent olecranon to suggest an acute osteomyelitis. 2. Heterogeneity of the visualized marrow within the proximal radius with patchy decreased T1 signal suggestive for hematopoietic marrow reconversion. 3. Small elbow joint effusion. - Wound Cx: MRSA - Meds: Clindamycin (12/26 -12/28) Merrem 500mg IV (12/28 -12/29) Switched to PO Clindamycin 300mg po TID (started 12/29), plan to continue Clindamycin for 7 days. Florastor 250 mg PO daily Tylenol 650mg PO q6h PRN pain Percocet 1 tab Q4 PRN - Isolation, contact precautions - Gen Sx consulted: Dr. Lloyd, help appreciated I&D wound culture : sensitive to Clindamycin POD#4 L elbow I&D, dressings c/d/i EKG NSR at [address] changes CXR no acute disease Left lower extremity swelling - Venous Dopplers (12/29): unable to visualize peroneal veins due to swelling, no other abnormalities. History of depression with psychotic features - Patient currently denies suicidal or homicidal thoughts with no auditory or visual hallucinations. - Dr. Owusu on board, help appreciated - Meds: Ability 15mg PO Wellbutrin 150mg PO daily Haldol 5mg PO Q4 PRN Atarax 50mg PO Q6 PRN Nicotine patch Trazodone 150mg PO HS PRN Case discussed with Dr. Lyn Aguilar, PGY1
[2018-01-01] MEDS: Saccharomyces Boulardi 250 mg Cap PO SCH ×2 (09:33→17:56)
[2018-01-01] MEDS: Multiple Vitamins Tab PO SCH (09:33)
[2018-01-01] MEDS ORDERED: Vitamins A & D Oint UD Foilpak TOP PRN (10:23)
[2018-01-01] MEDS ORDERED: Petrolatum Oint Foilpak (5 gm) TOP PRN (10:24)
[2018-01-01 10:52] LABS: HEMOGLOBIN 11.9 g/dL (12.0-18.0); MEAN CELL VOLUME 84.1 fL (80.0-94.0); MEAN CORPUSCULAR HEMOGLOBIN 27.4 pg (27.0-31.0); MEAN CORPUSCULAR HGB CONC 32.5 g/dL (33.0-37.0); MEAN PLATELET VOLUME 7.3 fL (7.2-11.7); RBC 4.36 Mil/uL (4.40-5.90); RED CELL DISTRIBUTION WIDTH 19.2 % (11.5-14.5); WHITE BLOOD COUNT 4.5 K/uL (4.8-10.8)
--- NOTE | 2018-01-01 11:13 | CP.PCM.PN ---
<Shelia Patton - Last Filed: 01/01/18 18:03> Subjective - Date & Time of Evaluation Date of Evaluation: 01/01/18 Time of Evaluation: 07:30 - Subjective Subjective: Surgery progress note for Dr. Lloyd Pt seen and examined this AM. No adverse events overnight. Pt denies any fevers, chills, still has persisent but improved pain in arm, though complains of neuropathic pain shooting up and down arm Objective - Vital Signs/Intake and Output Vital Signs (last 24 hours): Temp Pulse Resp BP Pulse Ox 97.6 F 76 20 106/66 100 01/01/18 08:16 01/01/18 08:16 01/01/18 08:16 01/01/18 08:16 01/01/18 08:16 - Medications Medications: Current Medications Aripiprazole (Abilify) 15 mg PO DAILY [facility] Last Admin: 12/31/17 10:27 Dose: 15 mg Bacitracin (Bacitracin) 1 gm TOP Q6H PRN PRN Reason: Abrasion Last Admin: 12/24/17 18:30 Dose: 1 gm Bupropion HCl (Wellbutrin) 150 mg PO DAILY [facility] Last Admin: 01/01/18 09:41 Dose: 150 mg Clindamycin HCl (Cleocin) 300 mg PO TID [facility]; Protocol Stop: 01/08/18 23:55 Last Admin: 01/01/18 09:33 Dose: 300 mg Emollient Ointment (Vaseline Oint) 5 gm TOP Q4H PRN PRN Reason: Dry skin Folic Acid (Folic Acid) 1 mg PO DAILY [facility] Last Admin: 01/01/18 09:32 Dose: 1 mg Haloperidol (Haldol) 5 mg PO Q4 PRN PRN Reason: Agitation Hydroxyzine HCl (Atarax) 50 mg PO Q6 PRN PRN Reason: Anxiety Multivitamins (Hexavitamin) 1 tab PO DAILY [facility] Last Admin: 01/01/18 09:33 Dose: 1 tab Nicotine (Nicoderm Cq) 1 patch TD DAILY [facility] Last Admin: 01/01/18 09:34 Dose: 1 patch Oxycodone/Acetaminophen (Percocet 5/325 Mg Tab) 1 tab PO Q4H PRN PRN Reason: Pain Stop: 01/03/18 21:02 Last Admin: 01/01/18 09:32 Dose: 1 tab Saccharomyces Boulardii (Florastor) 250 mg PO BID [facility] Last Admin: 12/31/17 17:20 Dose: 250 mg Thiamine HCl (Vitamin B1 Tab) 100 mg PO DAILY [facility] Last Admin: 01/01/18 09:40 Dose: 100 mg Trazodone HCl (Desyrel) 150 mg PO HS PRN PRN Reason: Insomnia Last Admin: 12/31/17 21:18 Dose: 150 mg Vitamin A (Vitamin A & D Oint Ud Foilpak) 1 ea TOP Q8 PRN PRN Reason: Dry skin - Labs Labs: 01/01/18 10:45 12/31/17 07:09 PT 12.0 SECONDS (9.7-12.2) 12/28/17 11:56 INR 1.1 12/28/17 11:56 APTT 36 SECONDS (21-34) H 12/28/17 11:56 - Constitutional Appears: Well, Non-toxic, No Acute Distress - Head Exam Head Exam: ATRAUMATIC, NORMOCEPHALIC - Eye Exam Eye Exam: Normal appearance. absent: Conjunctival injection, Scleral icterus - ENT Exam ENT Exam: Mucous Membranes Moist, Normal Oropharynx - Respiratory Exam Respiratory Exam: NORMAL BREATHING PATTERN. absent: Accessory Muscle Use, Respiratory Distress - Cardiovascular Exam Cardiovascular Exam: RRR - GI/Abdominal Exam GI & Abdominal Exam: Soft. absent: Distended, Tenderness - Extremities Exam Additional comments: left elbow incision healing well, no expressible fluid, no erythema, ROM intact, tinel's sign positive over the ulnar groove - Neurological Exam Neurological Exam: Alert, Awake, Oriented x3 - Psychiatric Exam Psychiatric exam: Normal Affect, Normal Mood - Skin Skin Exam: Dry, Normal Color, Warm Assessment and Plan - Assessment and Plan (Free Text) Assessment: 47M POD#4 s/p incision and drainage of left elbow abscess Plan: Continue PRN pain medication Continue antibiotics Continue daily dressing care--no further packing necessary Continue in med/surgery until wound has improved further Medical management per primary Discussed with Dr. Lloyd, who agrees with above Shelia Patton PGY2 <Nic Lloyd - Last Filed: 01/02/18 20:07> Objective - Vital Signs/Intake and Output Vital Signs (last 24 hours): Temp Pulse Resp BP Pulse Ox 97.8 F 84 20 105/73 97 01/02/18 15:00 01/02/18 15:00 01/02/18 15:00 01/02/18 15:00 01/02/18 15:00 - Medications Medications: Current Medications Aripiprazole (Abilify) 15 mg PO DAILY [facility] Last Admin: 01/02/18 10:06 Dose: 15 mg Bacitracin (Bacitracin) 1 gm TOP Q6H PRN PRN Reason: Abrasion Last Admin: 12/24/17 18:30 Dose: 1 gm Bupropion HCl (Wellbutrin) 150 mg PO DAILY [facility] Last Admin: 01/02/18 10:07 Dose: 150 mg Clindamycin HCl (Cleocin) 300 mg PO TID [facility]; Protocol Stop: 01/08/18 23:55 Last Admin: 01/02/18 18:22 Dose: 300 mg Emollient Ointment (Vaseline Oint) 5 gm TOP Q4H PRN PRN Reason: Dry skin Last Admin: 01/01/18 12:15 Dose: 5 gm Folic Acid (Folic Acid) 1 mg PO DAILY [facility] Last Admin: 01/02/18 10:07 Dose: 1 mg Gabapentin (Neurontin) 300 mg PO BID [facility] Last Admin: 01/02/18 18:22 Dose: 300 mg Haloperidol (Haldol) 5 mg PO Q4 PRN PRN Reason: Agitation Hydroxyzine HCl (Atarax) 50 mg PO Q6 PRN PRN Reason: Anxiety Multivitamins (Hexavitamin) 1 tab PO DAILY [facility] Last Admin: 01/02/18 10:07 Dose: 1 tab Nicotine (Nicoderm Cq) 1 patch TD DAILY [facility] Last Admin: 01/02/18 10:06 Dose: 1 patch Oxycodone/Acetaminophen (Percocet 5/325 Mg Tab) 1 tab PO Q4H PRN PRN Reason: Pain Stop: 01/03/18 21:02 Last Admin: 01/02/18 14:54 Dose: 1 tab Saccharomyces Boulardii (Florastor) 250 mg PO BID [facility] Last Admin: 01/02/18 18:22 Dose: 250 mg Thiamine HCl (Vitamin B1 Tab) 100 mg PO DAILY [facility] Last Admin: 01/02/18 10:12 Dose: 100 mg Trazodone HCl (Desyrel) 150 mg PO HS PRN PRN Reason: Insomnia Last Admin: 01/01/18 22:13 Dose: 150 mg Vitamin A (Vitamin A & D Oint Ud Foilpak) 1 ea TOP Q8 PRN PRN Reason: Dry skin - Labs Labs: 01/02/18 08:11 01/02/18 08:11 PT 12.0 SECONDS (9.7-12.2) 12/28/17 11:56 INR 1.1 12/28/17 11:56 APTT 36 SECONDS (21-34) H 12/28/17 11:56 Attending/Attestation - Attestation I have personally seen and examined this patient.: Yes I have fully participated in the care of the patient.: Yes I have reviewed all pertinent clinical information, including history, physical exam and plan: Yes Notes (Text): Pt was seen and examined at bedside Agree with above note and assessment Cellulitis is still present C.w IV antibiotics Repeat MRI of elbow Plan d.w pt in detail
[2018-01-01 11:23] LABS: ALB/GLOB RATIO 1.1 (1.0-2.1); ALBUMIN 3.6 g/dL (3.5-5.0); ALT/SGPT 48 U/L (21-72); AST/SGOT 53 U/L (17-59); BLOOD UREA NITROGEN 13 mg/dL (9-20); CALCIUM 8.7 mg/dl (8.6-10.4); GFR NON-AFRICAN AMERICAN > 60
[2018-01-02] MEDS: Oxycodone/Acetaminophen 5/325 mg Tab PO PRN ×4 (02:35→20:29)
[2018-01-02 08:17] LABS: HEMOGLOBIN 11.9 g/dL (12.0-18.0); MEAN CELL VOLUME 83.3 fL (80.0-94.0); MEAN CORPUSCULAR HEMOGLOBIN 27.5 pg (27.0-31.0); MEAN PLATELET VOLUME 7.5 fL (7.2-11.7); RBC 4.33 Mil/uL (4.40-5.90); RED CELL DISTRIBUTION WIDTH 19.4 % (11.5-14.5); WHITE BLOOD COUNT 3.3 K/uL (4.8-10.8)
--- NOTE | 2018-01-02 08:52 | CP.PCM.PN ---
Subjective - Date & Time of Evaluation Date of Evaluation: 01/02/18 Time of Evaluation: 08:50 - Subjective Subjective: Patient was seen and examined by me. Agree with the above note by the resident The patient was not in any acute distress. The patient was able to flex and extend his elbow, he reports with minimal tenderness. He remains on the PO clindamycin There was some discharge overnight however was better this morning. Denied fevers, denied chills. The area on his face improves with the topical Aloe Vera cream Nahun Nicholson Objective - Vital Signs/Intake and Output Vital Signs (last 24 hours): Temp Pulse Resp BP Pulse Ox 97.7 F 73 20 99/52 L 97 01/02/18 00:00 01/02/18 00:00 01/02/18 00:00 01/02/18 02:31 01/02/18 00:00 Intake and Output: 01/02/18 01/02/18 06:59 18:59 Intake Total 600 Balance 600 - Medications Medications: Current Medications Aripiprazole (Abilify) 15 mg PO DAILY [facility] Last Admin: 01/01/18 09:33 Dose: 15 mg Bacitracin (Bacitracin) 1 gm TOP Q6H PRN PRN Reason: Abrasion Last Admin: 12/24/17 18:30 Dose: 1 gm Bupropion HCl (Wellbutrin) 150 mg PO DAILY [facility] Last Admin: 01/01/18 09:41 Dose: 150 mg Clindamycin HCl (Cleocin) 300 mg PO TID [facility]; Protocol Stop: 01/08/18 23:55 Last Admin: 01/01/18 17:56 Dose: 300 mg Emollient Ointment (Vaseline Oint) 5 gm TOP Q4H PRN PRN Reason: Dry skin Last Admin: 01/01/18 12:15 Dose: 5 gm Folic Acid (Folic Acid) 1 mg PO DAILY [facility] Last Admin: 01/01/18 09:32 Dose: 1 mg Gabapentin (Neurontin) 300 mg PO BID [facility] Last Admin: 01/01/18 17:56 Dose: 300 mg Haloperidol (Haldol) 5 mg PO Q4 PRN PRN Reason: Agitation Hydroxyzine HCl (Atarax) 50 mg PO Q6 PRN PRN Reason: Anxiety Multivitamins (Hexavitamin) 1 tab PO DAILY [facility] Last Admin: 01/01/18 09:33 Dose: 1 tab Nicotine (Nicoderm Cq) 1 patch TD DAILY [facility] Last Admin: 01/01/18 09:34 Dose: 1 patch Oxycodone/Acetaminophen (Percocet 5/325 Mg Tab) 1 tab PO Q4H PRN PRN Reason: Pain Stop: 01/03/18 21:02 Last Admin: 01/02/18 07:56 Dose: 1 tab Saccharomyces Boulardii (Florastor) 250 mg PO BID [facility] Last Admin: 01/01/18 17:56 Dose: 250 mg Thiamine HCl (Vitamin B1 Tab) 100 mg PO DAILY [facility] Last Admin: 01/01/18 09:40 Dose: 100 mg Trazodone HCl (Desyrel) 150 mg PO HS PRN PRN Reason: Insomnia Last Admin: 01/01/18 22:13 Dose: 150 mg Vitamin A (Vitamin A & D Oint Ud Foilpak) 1 ea TOP Q8 PRN PRN Reason: Dry skin - Labs Labs: 01/02/18 08:11 01/01/18 10:45 PT 12.0 SECONDS (9.7-12.2) 12/28/17 11:56 INR 1.1 12/28/17 11:56 APTT 36 SECONDS (21-34) H 12/28/17 11:56
[2018-01-02 09:06] LABS: ALB/GLOB RATIO 1.1 (1.0-2.1); ALBUMIN 3.4 g/dL (3.5-5.0); ALT/SGPT 52 U/L (21-72); AST/SGOT 58 U/L (17-59); BLOOD UREA NITROGEN 11 mg/dL (9-20); CALCIUM 8.6 mg/dl (8.6-10.4); GFR NON-AFRICAN AMERICAN > 60
--- NOTE | 2018-01-02 10:06 | CP.PCM.PN ---
Subjective - Date & Time of Evaluation Date of Evaluation: 01/02/18 Time of Evaluation: 10:06 Objective - Vital Signs/Intake and Output Vital Signs (last 24 hours): Temp Pulse Resp BP Pulse Ox 97.6 F 76 20 103/61 100 01/02/18 08:59 01/02/18 08:59 01/02/18 08:59 01/02/18 08:59 01/02/18 08:59 Intake and Output: 01/02/18 01/02/18 06:59 18:59 Intake Total 600 Balance 600 - Medications Medications: Current Medications Aripiprazole (Abilify) 15 mg PO DAILY [facility] Last Admin: 01/01/18 09:33 Dose: 15 mg Bacitracin (Bacitracin) 1 gm TOP Q6H PRN PRN Reason: Abrasion Last Admin: 12/24/17 18:30 Dose: 1 gm Bupropion HCl (Wellbutrin) 150 mg PO DAILY [facility] Last Admin: 01/01/18 09:41 Dose: 150 mg Clindamycin HCl (Cleocin) 300 mg PO TID [facility]; Protocol Stop: 01/08/18 23:55 Last Admin: 01/01/18 17:56 Dose: 300 mg Emollient Ointment (Vaseline Oint) 5 gm TOP Q4H PRN PRN Reason: Dry skin Last Admin: 01/01/18 12:15 Dose: 5 gm Folic Acid (Folic Acid) 1 mg PO DAILY [facility] Last Admin: 01/01/18 09:32 Dose: 1 mg Gabapentin (Neurontin) 300 mg PO BID [facility] Last Admin: 01/01/18 17:56 Dose: 300 mg Haloperidol (Haldol) 5 mg PO Q4 PRN PRN Reason: Agitation Hydroxyzine HCl (Atarax) 50 mg PO Q6 PRN PRN Reason: Anxiety Multivitamins (Hexavitamin) 1 tab PO DAILY [facility] Last Admin: 01/01/18 09:33 Dose: 1 tab Nicotine (Nicoderm Cq) 1 patch TD DAILY [facility] Last Admin: 01/01/18 09:34 Dose: 1 patch Oxycodone/Acetaminophen (Percocet 5/325 Mg Tab) 1 tab PO Q4H PRN PRN Reason: Pain Stop: 01/03/18 21:02 Last Admin: 01/02/18 07:56 Dose: 1 tab Saccharomyces Boulardii (Florastor) 250 mg PO BID [facility] Last Admin: 01/01/18 17:56 Dose: 250 mg Thiamine HCl (Vitamin B1 Tab) 100 mg PO DAILY [facility] Last Admin: 01/01/18 09:40 Dose: 100 mg Trazodone HCl (Desyrel) 150 mg PO HS PRN PRN Reason: Insomnia Last Admin: 01/01/18 22:13 Dose: 150 mg Vitamin A (Vitamin A & D Oint Ud Foilpak) 1 ea TOP Q8 PRN PRN Reason: Dry skin - Labs Labs: 01/02/18 08:11 01/02/18 08:11 PT 12.0 SECONDS (9.7-12.2) 12/28/17 11:56 INR 1.1 12/28/17 11:56 APTT 36 SECONDS (21-34) H 12/28/17 11:56
[2018-01-02] MEDS: Multiple Vitamins Tab PO SCH (10:07)
[2018-01-02] MEDS: Saccharomyces Boulardi 250 mg Cap PO SCH ×2 (10:12→18:22)
--- NOTE | 2018-01-02 11:22 | CP.PCM.PN ---
<Mariama Rosas - Last Filed: 01/02/18 11:53> Subjective - Date & Time of Evaluation Date of Evaluation: 01/02/18 Time of Evaluation: 07:00 - Subjective Subjective: GENERAL SURGERY PROGRESS NOTE FOR DR. LLOYD Patient seen and examined at bedside. He states that his pain is better but he does still have some numbness/tingling up and down the arm distal and proximal to the I&D site. Reports some drainage last night from the wound. Objective - Vital Signs/Intake and Output Vital Signs (last 24 hours): Temp Pulse Resp BP Pulse Ox 97.6 F 76 20 103/61 100 01/02/18 08:59 01/02/18 08:59 01/02/18 08:59 01/02/18 08:59 01/02/18 08:59 Intake and Output: 01/02/18 01/02/18 06:59 18:59 Intake Total 600 Balance 600 - Medications Medications: Current Medications Aripiprazole (Abilify) 15 mg PO DAILY [facility] Last Admin: 01/02/18 10:06 Dose: 15 mg Bacitracin (Bacitracin) 1 gm TOP Q6H PRN PRN Reason: Abrasion Last Admin: 12/24/17 18:30 Dose: 1 gm Bupropion HCl (Wellbutrin) 150 mg PO DAILY [facility] Last Admin: 01/02/18 10:07 Dose: 150 mg Clindamycin HCl (Cleocin) 300 mg PO TID [facility]; Protocol Stop: 01/08/18 23:55 Last Admin: 01/02/18 10:06 Dose: 300 mg Emollient Ointment (Vaseline Oint) 5 gm TOP Q4H PRN PRN Reason: Dry skin Last Admin: 01/01/18 12:15 Dose: 5 gm Folic Acid (Folic Acid) 1 mg PO DAILY [facility] Last Admin: 01/02/18 10:07 Dose: 1 mg Gabapentin (Neurontin) 300 mg PO BID [facility] Last Admin: 01/02/18 10:07 Dose: 300 mg Haloperidol (Haldol) 5 mg PO Q4 PRN PRN Reason: Agitation Hydroxyzine HCl (Atarax) 50 mg PO Q6 PRN PRN Reason: Anxiety Multivitamins (Hexavitamin) 1 tab PO DAILY [facility] Last Admin: 11/17/18 10:07 Dose: 1 tab Nicotine (Nicoderm Cq) 1 patch TD DAILY [facility] Last Admin: 01/02/18 10:06 Dose: 1 patch Oxycodone/Acetaminophen (Percocet 5/325 Mg Tab) 1 tab PO Q4H PRN PRN Reason: Pain Stop: 01/03/18 21:02 Last Admin: 01/02/18 07:56 Dose: 1 tab Saccharomyces Boulardii (Florastor) 250 mg PO BID [facility] Last Admin: 01/02/18 10:12 Dose: 250 mg Thiamine HCl (Vitamin B1 Tab) 100 mg PO DAILY [facility] Last Admin: 01/02/18 10:12 Dose: 100 mg Trazodone HCl (Desyrel) 150 mg PO HS PRN PRN Reason: Insomnia Last Admin: 01/01/18 22:13 Dose: 150 mg Vitamin A (Vitamin A & D Oint Ud Foilpak) 1 ea TOP Q8 PRN PRN Reason: Dry skin - Labs Labs: 01/02/18 08:11 01/02/18 08:11 PT 12.0 SECONDS (9.7-12.2) 12/28/17 11:56 INR 1.1 12/28/17 11:56 APTT 36 SECONDS (21-34) H 12/28/17 11:56 - Constitutional Appears: Non-toxic, No Acute Distress - Head Exam Head Exam: ATRAUMATIC, NORMAL INSPECTION - Respiratory Exam Respiratory Exam: NORMAL BREATHING PATTERN. absent: Respiratory Distress - Cardiovascular Exam Cardiovascular Exam: +S1, +S2 - Extremities Exam Additional comments: Left elbow I&D site: ~1-2 cm opening. No drainage able to be expressed. Erythema, no induration or fluctuance - Neurological Exam Neurological Exam: Alert, Awake, Oriented x3 - Psychiatric Exam Psychiatric exam: Normal Affect, Normal Mood - Skin Skin Exam: Dry, Warm Assessment and Plan - Assessment and Plan (Free Text) Assessment: 47M POD#5 s/p incision and drainage of left elbow abscess Plan: - Continue daily dressing care--no further packing necessary - Continue in med/surg until wound has improved further - MRI of elbow Thursday - Recommend ID consult w/ Dr. Aguilera for Merrem - No further general surgery intervention - Recommend orthopedic consult Discussed with Dr. Gabino Rosas PGY-4 <Nic Lloyd B - Last Filed: 01/02/18 20:09> Objective - Vital Signs/Intake and Output Vital Signs (last 24 hours): Temp Pulse Resp BP Pulse Ox 97.8 F 84 20 105/73 97 01/02/18 15:00 01/02/18 15:00 01/02/18 15:00 01/02/18 15:00 01/02/18 15:00 - Medications Medications: Current Medications Aripiprazole (Abilify) 15 mg PO DAILY [facility] Last Admin: 01/02/18 10:06 Dose: 15 mg Bacitracin (Bacitracin) 1 gm TOP Q6H PRN PRN Reason: Abrasion Last Admin: 12/24/17 18:30 Dose: 1 gm Bupropion HCl (Wellbutrin) 150 mg PO DAILY [facility] Last Admin: 01/02/18 10:07 Dose: 150 mg Clindamycin HCl (Cleocin) 300 mg PO TID [facility]; Protocol Stop: 01/08/18 23:55 Last Admin: 01/02/18 18:22 Dose: 300 mg Emollient Ointment (Vaseline Oint) 5 gm TOP Q4H PRN PRN Reason: Dry skin Last Admin: 01/01/18 12:15 Dose: 5 gm Folic Acid (Folic Acid) 1 mg PO DAILY [facility] Last Admin: 01/02/18 10:07 Dose: 1 mg Gabapentin (Neurontin) 300 mg PO BID [facility] Last Admin: 01/02/18 18:22 Dose: 300 mg Haloperidol (Haldol) 5 mg PO Q4 PRN PRN Reason: Agitation Hydroxyzine HCl (Atarax) 50 mg PO Q6 PRN PRN Reason: Anxiety Multivitamins (Hexavitamin) 1 tab PO DAILY [facility] Last Admin: 01/02/18 10:07 Dose: 1 tab Nicotine (Nicoderm Cq) 1 patch TD DAILY [facility] Last Admin: 01/02/18 10:06 Dose: 1 patch Oxycodone/Acetaminophen (Percocet 5/325 Mg Tab) 1 tab PO Q4H PRN PRN Reason: Pain Stop: 01/03/18 21:02 Last Admin: 01/02/18 14:54 Dose: 1 tab Saccharomyces Boulardii (Florastor) 250 mg PO BID [facility] Last Admin: 01/02/18 18:22 Dose: 250 mg Thiamine HCl (Vitamin B1 Tab) 100 mg PO DAILY [facility] Last Admin: 01/02/18 10:12 Dose: 100 mg Trazodone HCl (Desyrel) 150 mg PO HS PRN PRN Reason: Insomnia Last Admin: 01/01/18 22:13 Dose: 150 mg Vitamin A (Vitamin A & D Oint Ud Foilpak) 1 ea TOP Q8 PRN PRN Reason: Dry skin - Labs Labs: 01/02/18 08:11 01/02/18 08:11 PT 12.0 SECONDS (9.7-12.2) 12/28/17 11:56 INR 1.1 12/28/17 11:56 APTT 36 SECONDS (21-34) H 12/28/17 11:56 Attending/Attestation - Attestation I have fully participated in the care of the patient.: Yes I have reviewed all pertinent clinical information, including history, physical exam and plan: Yes Notes (Text): Cellulitis is still present Reconsult Orthopedic surgery Repeat MRI of elbow Start IV Meropenam No General surgical intervention required at present Plan d.w pt in detail
[2018-01-03] MEDS: Oxycodone/Acetaminophen 5/325 mg Tab PO PRN ×4 (03:15→19:50)
[2018-01-03 07:59] LABS: HEMOGLOBIN 11.6 g/dL (12.0-18.0); MEAN CELL VOLUME 83.7 fL (80.0-94.0); MEAN CORPUSCULAR HEMOGLOBIN 27.5 pg (27.0-31.0); MEAN CORPUSCULAR HGB CONC 32.9 g/dL (33.0-37.0); MEAN PLATELET VOLUME 7.5 fL (7.2-11.7); RBC 4.2 Mil/uL (4.40-5.90); RED CELL DISTRIBUTION WIDTH 18.9 % (11.5-14.5); WHITE BLOOD COUNT 3.9 K/uL (4.8-10.8)
[2018-01-03 08:27] LABS: ALB/GLOB RATIO 1.1 (1.0-2.1); ALBUMIN 3.4 g/dL (3.5-5.0); ALT/SGPT 46 U/L (21-72); AST/SGOT 42 U/L (17-59); BLOOD UREA NITROGEN 12 mg/dL (9-20); CALCIUM 8.7 mg/dl (8.6-10.4); GFR NON-AFRICAN AMERICAN > 60
--- NOTE | 2018-01-03 08:33 | CP.PCM.CON ---
History of Present Illness - History of Present Illness History of Present Illness: ID: 47 yo male CC: s/p superficial abscess/carbuncle posterior to proximal ulna;pt CURRENTLY WITH NO COMPLAINTS OF PAIN HPI; 47 ypo male aditted for small carbuncle superficial abscess posterior to proximal ulna Pt takemn to OR by DR Hernández; mini I+D performed;called to see pt by Dr Mariama Rosas for DR Rudd. pt comfortable o t time of eval, freely moving L elbow.MINIMAL drainage on dressing past med hx- not contrib; ? previous psych hx, but no firm diagnosis past surg hx + for the aforementioned I+D; (mini I+D) Past Patient History - Infectious Disease Hx of Infectious Diseases: None - Tetanus Immunizations Tetanus Immunization: Unknown - Past Medical History & Family History Past Medical History?: Yes - Past Social History Smoking Status: Light Smoker < 10 Cigarettes Daily - CARDIAC Hx Cardiac Disorders: No - PULMONARY Hx Respiratory Disorders: No - NEUROLOGICAL Hx Neurological Disorder: No - HEENT Hx HEENT Problems: No - RENAL Hx Chronic Kidney Disease: No - ENDOCRINE/METABOLIC Hx Endocrine Disorders: No - HEMATOLOGICAL/ONCOLOGICAL Hx Blood Disorders: No - INTEGUMENTARY Hx Dermatological Problems: No - MUSCULOSKELETAL/RHEUMATOLOGICAL Hx Musculoskeletal Disorders: Yes Hx Falls: No Hx Spinal Stenosis: Yes Other/Comment: spinal stenosis - GASTROINTESTINAL Hx Gastrointestinal Disorders: No - GENITOURINARY/GYNECOLOGICAL Hx Genitourinary Disorders: No - PSYCHIATRIC Hx Substance Use: Yes - SURGICAL HISTORY Hx Surgeries: Yes Hx Herniorrhaphy: Yes Hx Orthopedic Surgery: Yes (rt shoulder) - ANESTHESIA Hx Anesthesia: Yes Hx Anesthesia Reactions: No Meds Home Medications: Home Medication List Medication Instructions Recorded Confirmed Type ARIPiprazole [Abilify] 15 mg PO DAILY #30 tab 12/30/17 Rx buPROPion [Wellbutrin] 150 mg PO DAILY #30 tab 12/30/17 Rx traZODone [Desyrel] 100 mg PO HS PRN #60 tab 12/30/17 Rx Allergies/Adverse Reactions: Allergies Allergy/AdvReac Type Severity Reaction Status Date / Time ibuprofen Allergy ITCHING Verified 12/24/17 10:24 naproxen [From Naprosyn] Allergy ITCHING Verified 12/24/17 10:24 - Medications Medications: Current Medications Aripiprazole (Abilify) 15 mg PO DAILY [facility] Last Admin: 01/02/18 10:06 Dose: 15 mg Bacitracin (Bacitracin) 1 gm TOP Q6H PRN PRN Reason: Abrasion Last Admin: 12/24/17 18:30 Dose: 1 gm Bupropion HCl (Wellbutrin) 150 mg PO DAILY [facility] Last Admin: 01/02/18 10:07 Dose: 150 mg Clindamycin HCl (Cleocin) 300 mg PO TID [facility]; Protocol Stop: 01/08/18 23:55 Last Admin: 01/02/18 18:22 Dose: 300 mg Emollient Ointment (Vaseline Oint) 5 gm TOP Q4H PRN PRN Reason: Dry skin Last Admin: 01/01/18 12:15 Dose: 5 gm Folic Acid (Folic Acid) 1 mg PO DAILY [facility] Last Admin: 01/02/18 10:07 Dose: 1 mg Gabapentin (Neurontin) 300 mg PO BID [facility] Last Admin: 01/02/18 18:22 Dose: 300 mg Haloperidol (Haldol) 5 mg PO Q4 PRN PRN Reason: Agitation Hydroxyzine HCl (Atarax) 50 mg PO Q6 PRN PRN Reason: Anxiety Multivitamins (Hexavitamin) 1 tab PO DAILY [facility] Last Admin: 01/02/18 10:07 Dose: 1 tab Nicotine (Nicoderm Cq) 1 patch TD DAILY [facility] Last Admin: 01/02/18 10:06 Dose: 1 patch Oxycodone/Acetaminophen (Percocet 5/325 Mg Tab) 1 tab PO Q4H PRN PRN Reason: Pain Stop: 01/03/18 21:02 Last Admin: 01/03/18 03:15 Dose: 1 tab Saccharomyces Boulardii (Florastor) 250 mg PO BID [facility] Last Admin: 01/02/18 18:22 Dose: 250 mg Thiamine HCl (Vitamin B1 Tab) 100 mg PO DAILY [facility] Last Admin: 01/02/18 10:12 Dose: 100 mg Trazodone HCl (Desyrel) 150 mg PO HS PRN PRN Reason: Insomnia Last Admin: 01/01/18 22:13 Dose: 150 mg Vitamin A (Vitamin A & D Oint Ud Foilpak) 1 ea TOP Q8 PRN PRN Reason: Dry skin Physical Exam - Additional Findings Additional findings: Systemic pt currently afebrile systemic exam- no evidence for systemic sepsis Musculoskekeltal stance/gait- defrred ROM L elbow essentially full and painless small healing puncture/incision psterior aspect l elbow minimal drainage no gross purulence noted no real erythema no evidence for communication with the elbow joint either clinically or on review of diagnostic stiuies N/V intact Results - Vital Signs Recent Vital Signs: Last Vital Signs Temp 98 F 01/02/18 23:35 Pulse 67 01/02/18 23:35 Resp 20 01/02/18 23:35 BP 101/61 01/02/18 23:35 Pulse Ox 98 01/02/18 23:35 - Labs Result Diagrams: 01/03/18 07:46 01/02/18 08:11 Labs: Laboratory Results - last 24 hr 01/02/18 01/02/18 01/02/18 06:59 08:11 08:11 WBC 3.3 L RBC 4.33 L Hgb 11.9 L Hct 36.1 MCV 83.3 MCH 27.5 MCHC 33.0 RDW 19.4 H Plt Count 287 MPV 7.5 ESR 28 H Sodium 136 Potassium 3.7 Chloride 101 Carbon Dioxide 22 Anion Gap 16 BUN 11 Creatinine 0.8 Est GFR ( Amer) > 60 Est GFR (Non-Af Amer) > 60 POC Glucose (mg/dL) 91 Random Glucose 51 L Calcium 8.6 Total Bilirubin 0.2 AST 58 ALT 52 Alkaline Phosphatase 80 Total Protein 6.5 Albumin 3.4 L Globulin 3.1 Albumin/Globulin Ratio 1.1 01/02/18 01/02/18 01/02/18 11:51 16:29 21:00 WBC RBC Hgb Hct MCV MCH MCHC RDW Plt Count MPV ESR Sodium Potassium Chloride Carbon Dioxide Anion Gap BUN Creatinine Est GFR ( Amer) Est GFR (Non-Af Amer) POC Glucose (mg/dL) 94 100 112 H Random Glucose Calcium Total Bilirubin AST ALT Alkaline Phosphatase Total Protein Albumin Globulin Albumin/Globulin Ratio 01/03/18 01/03/18 06:17 07:46 WBC 3.9 L RBC 4.20 L Hgb 11.6 L Hct 35.2 MCV 83.7 MCH 27.5 MCHC 32.9 L RDW 18.9 H Plt Count 282 MPV 7.5 ESR Sodium Potassium Chloride Carbon Dioxide Anion Gap BUN Creatinine Est GFR ( Amer) Est GFR (Non-Af Amer) POC Glucose (mg/dL) 79 Random Glucose Calcium Total Bilirubin AST ALT Alkaline Phosphatase Total Protein Albumin Globulin Albumin/Globulin Ratio Assessment & Plan - Assessment and Plan (Free Text) Assessment: A- s/p I+D (mini) superfici;l abscess/carbuncle L proximal ulna/ L elbow P- discussed with surg resident DR Rosas/ Dr Kelley n loretta Infectious disease consult betadine wet to dry dressing changes daily I/V abios as per Inf Disease if refractory more formal incision/drainage recommended with extensive abio lavage No orthopedic intervention indicated at this point I am signing out to coverage (DR NAYELY GILMAN) FROM01/03- 01/10 TY FOR THIS CONSULT
[2018-01-03] MEDS: Multiple Vitamins Tab PO SCH (09:23)
[2018-01-03] MEDS: Saccharomyces Boulardi 250 mg Cap PO SCH ×2 (09:23→17:36)
--- NOTE | 2018-01-03 09:32 | CP.PCM.PN ---
<Mariama Rosas - Last Filed: 01/03/18 09:34> Subjective - Date & Time of Evaluation Date of Evaluation: 01/03/18 Time of Evaluation: 07:00 - Subjective Subjective: GENERAL SURGERY PROGRESS NOTE FOR DR. LLOYD Patient seen and examined at bedside. He states that his pain is better but he does still have some numbness/tingling up and down the arm distal and proximal to the I&D site. Reports some drainage last night from the wound. Pt denies fever or chills. Tolerating diet. Objective - Vital Signs/Intake and Output Vital Signs (last 24 hours): Temp Pulse Resp BP Pulse Ox 97.8 F 83 20 96/57 L 99 01/03/18 08:25 01/03/18 08:25 01/03/18 08:25 01/03/18 08:25 01/03/18 08:25 Intake and Output: 01/03/18 01/03/18 06:59 18:59 Intake Total 400 Balance 400 - Medications Medications: Current Medications Aripiprazole (Abilify) 15 mg PO DAILY [facility] Last Admin: 01/02/18 10:06 Dose: 15 mg Bacitracin (Bacitracin) 1 gm TOP Q6H PRN PRN Reason: Abrasion Last Admin: 12/24/17 18:30 Dose: 1 gm Bupropion HCl (Wellbutrin) 150 mg PO DAILY [facility] Last Admin: 01/03/18 09:24 Dose: 150 mg Clindamycin HCl (Cleocin) 300 mg PO TID [facility]; Protocol Stop: 01/08/18 23:55 Last Admin: 01/03/18 09:24 Dose: 300 mg Emollient Ointment (Vaseline Oint) 5 gm TOP Q4H PRN PRN Reason: Dry skin Last Admin: 01/01/18 12:15 Dose: 5 gm Folic Acid (Folic Acid) 1 mg PO DAILY [facility] Last Admin: 01/03/18 09:23 Dose: 1 mg Gabapentin (Neurontin) 300 mg PO BID [facility] Last Admin: 01/03/18 09:23 Dose: 300 mg Haloperidol (Haldol) 5 mg PO Q4 PRN PRN Reason: Agitation Hydroxyzine HCl (Atarax) 50 mg PO Q6 PRN PRN Reason: Anxiety Multivitamins (Hexavitamin) 1 tab PO DAILY [facility] Last Admin: 01/03/18 09:23 Dose: 1 tab Nicotine (Nicoderm Cq) 1 patch TD DAILY [facility] Last Admin: 01/03/18 09:25 Dose: 1 patch Oxycodone/Acetaminophen (Percocet 5/325 Mg Tab) 1 tab PO Q4H PRN PRN Reason: Pain Stop: 01/03/18 21:02 Last Admin: 01/03/18 09:23 Dose: 1 tab Saccharomyces Boulardii (Florastor) 250 mg PO BID [facility] Last Admin: 01/03/18 09:23 Dose: 250 mg Thiamine HCl (Vitamin B1 Tab) 100 mg PO DAILY [facility] Last Admin: 01/03/18 09:23 Dose: 100 mg Trazodone HCl (Desyrel) 150 mg PO HS PRN PRN Reason: Insomnia Last Admin: 01/01/18 22:13 Dose: 150 mg Vitamin A (Vitamin A & D Oint Ud Foilpak) 1 ea TOP Q8 PRN PRN Reason: Dry skin - Labs Labs: 01/03/18 07:46 01/03/18 07:46 PT 12.0 SECONDS (9.7-12.2) 12/28/17 11:56 INR 1.1 12/28/17 11:56 APTT 36 SECONDS (21-34) H 12/28/17 11:56 - Constitutional Appears: Non-toxic, No Acute Distress - Head Exam Head Exam: ATRAUMATIC, NORMAL INSPECTION - Eye Exam Eye Exam: EOMI, Normal appearance - Respiratory Exam Respiratory Exam: NORMAL BREATHING PATTERN. absent: Respiratory Distress - Cardiovascular Exam Cardiovascular Exam: +S1, +S2 - GI/Abdominal Exam GI & Abdominal Exam: Soft. absent: Tenderness - Extremities Exam Additional comments: Left elbow I&D site: ~1 cm opening. No drainage able to be expressed. Erythema, no induration or fluctuance Assessment and Plan - Assessment and Plan (Free Text) Assessment: 47M POD#6 s/p incision and drainage of left elbow abscess Plan: - Appreciate orthopedic surgery recs: no involvement of the joint, rec betadine wet to dry dressing, consult ID, and if refractory to conservative tx, more formal I&D in OR w/ pulse lavage - Continue daily dressing care-- will do betadine wet to dry dressing - Continue in med/surg until wound has improved further - MRI of elbow Thursday - Recommend ID consult w/ Dr. Aguilera for Merrem Discussed with Dr. Gabino Rosas PGY-4 <Nic Lloyd - Last Filed: 01/10/18 18:45> Objective - Vital Signs/Intake and Output Vital Signs (last 24 hours): Temp Pulse Resp BP Pulse Ox 97.9 F 75 20 100/64 95 01/10/18 17:28 01/10/18 17:28 01/10/18 17:28 01/10/18 17:28 01/10/18 17:28 Intake and Output: 01/10/18 01/10/18 06:59 18:59 Intake Total 400 Balance 400 - Medications Medications: Current Medications Acetaminophen (Tylenol 325mg Tab) 650 mg PO Q6 PRN PRN Reason: Pain, moderate (4-7) Last Admin: 01/10/18 18:09 Dose: 650 mg Aripiprazole (Abilify) 15 mg PO DAILY [facility] Last Admin: 01/10/18 09:55 Dose: 15 mg Bacitracin (Bacitracin) 1 gm TOP Q6H PRN PRN Reason: Abrasion Last Admin: 12/24/17 18:30 Dose: 1 gm Bupropion HCl (Wellbutrin) 150 mg PO DAILY [facility] Last Admin: 01/10/18 09:56 Dose: 150 mg Emollient Ointment (Vaseline Oint) 5 gm TOP Q4H PRN PRN Reason: Dry skin Last Admin: 01/01/18 12:15 Dose: 5 gm Folic Acid (Folic Acid) 1 mg PO DAILY [facility] Last Admin: 01/10/18 09:52 Dose: 1 mg Gabapentin (Neurontin) 300 mg PO BID [facility] Last Admin: 01/10/18 17:40 Dose: 300 mg Haloperidol (Haldol) 5 mg PO Q4 PRN PRN Reason: Agitation Heparin Sodium (Porcine) (Heparin) 5,000 units SC Q8H [facility] Last Admin: 01/10/18 05:31 Dose: 5,000 units Hydroxyzine HCl (Atarax) 50 mg PO Q6 PRN PRN Reason: Anxiety Clindamycin Phosphate 600 mg/ (Sodium Chloride) 54 mls @ 100 mls/hr IVPB Q8H [facility]; Protocol Last Admin: 01/10/18 13:12 Dose: 100 mls/hr Midazolam HCl (Versed Inj) 2.5 mg IVP ONCE PRN PRN Reason: Anxiety Last Admin: 01/08/18 14:02 Dose: 2.5 mg Multivitamins (Hexavitamin) 1 tab PO DAILY [facility] Last Admin: 01/10/18 09:52 Dose: 1 tab Nicotine (Nicoderm Cq) 1 patch TD DAILY [facility] Last Admin: 01/10/18 09:52 Dose: 1 patch Saccharomyces Boulardii (Florastor) 250 mg PO BID [facility] Last Admin: 01/10/18 17:40 Dose: 250 mg Thiamine HCl (Vitamin B1 Tab) 100 mg PO DAILY [facility] Last Admin: 01/10/18 09:52 Dose: 100 mg Trazodone HCl (Desyrel) 150 mg PO HS PRN PRN Reason: Insomnia Last Admin: 01/09/18 22:28 Dose: 150 mg Vitamin A (Vitamin A & D Oint Ud Foilpak) 1 ea TOP Q8 PRN PRN Reason: Dry skin Last Admin: 01/05/18 09:25 Dose: 1 ea - Labs Labs: 01/10/18 07:25 01/10/18 07:25 PT 12.0 SECONDS (9.7-12.2) 12/28/17 11:56 INR 1.1 12/28/17 11:56 APTT 36 SECONDS (21-34) H 12/28/17 11:56 Attending/Attestation - Attestation I have fully participated in the care of the patient.: Yes I have reviewed all pertinent clinical information, including history, physical exam and plan: Yes Notes (Text): Pt is improving clinically Cellulitis is still present repeat MRI in am C.w current mx Plan d.w pt in detail
--- NOTE | 2018-01-03 09:43 | CP.PCM.PN ---
Subjective - Date & Time of Evaluation Date of Evaluation: 01/03/18 Time of Evaluation: 09:00 - Subjective Subjective: Patient was seen and examined by me. He was able to flex and extend the elbow with minimal pain. There was no active drainage when I came and saw him, denied fevers, denied chills. Reportedly overnight had some drainage noted. Was evalauted by orthopedic surgery this morning, will get ID evaluation. Pending MRI on Thursday Objective - Vital Signs/Intake and Output Vital Signs (last 24 hours): Temp Pulse Resp BP Pulse Ox 97.8 F 83 20 96/57 L 99 01/03/18 08:25 01/03/18 08:25 01/03/18 08:25 01/03/18 08:25 01/03/18 08:25 Intake and Output: 01/03/18 01/03/18 06:59 18:59 Intake Total 400 Balance 400 - Medications Medications: Current Medications Aripiprazole (Abilify) 15 mg PO DAILY [facility] Last Admin: 01/02/18 10:06 Dose: 15 mg Bacitracin (Bacitracin) 1 gm TOP Q6H PRN PRN Reason: Abrasion Last Admin: 12/24/17 18:30 Dose: 1 gm Bupropion HCl (Wellbutrin) 150 mg PO DAILY [facility] Last Admin: 01/03/18 09:24 Dose: 150 mg Clindamycin HCl (Cleocin) 300 mg PO TID [facility]; Protocol Stop: 01/08/18 23:55 Last Admin: 01/03/18 09:24 Dose: 300 mg Emollient Ointment (Vaseline Oint) 5 gm TOP Q4H PRN PRN Reason: Dry skin Last Admin: 01/01/18 12:15 Dose: 5 gm Folic Acid (Folic Acid) 1 mg PO DAILY [facility] Last Admin: 01/03/18 09:23 Dose: 1 mg Gabapentin (Neurontin) 300 mg PO BID [facility] Last Admin: 01/03/18 09:23 Dose: 300 mg Haloperidol (Haldol) 5 mg PO Q4 PRN PRN Reason: Agitation Hydroxyzine HCl (Atarax) 50 mg PO Q6 PRN PRN Reason: Anxiety Multivitamins (Hexavitamin) 1 tab PO DAILY [facility] Last Admin: 01/03/18 09:23 Dose: 1 tab Nicotine (Nicoderm Cq) 1 patch TD DAILY [facility] Last Admin: 01/03/18 09:25 Dose: 1 patch Oxycodone/Acetaminophen (Percocet 5/325 Mg Tab) 1 tab PO Q4H PRN PRN Reason: Pain Stop: 01/03/18 21:02 Last Admin: 01/03/18 09:23 Dose: 1 tab Saccharomyces Boulardii (Florastor) 250 mg PO BID [facility] Last Admin: 01/03/18 09:23 Dose: 250 mg Thiamine HCl (Vitamin B1 Tab) 100 mg PO DAILY [facility] Last Admin: 01/03/18 09:23 Dose: 100 mg Trazodone HCl (Desyrel) 150 mg PO HS PRN PRN Reason: Insomnia Last Admin: 01/01/18 22:13 Dose: 150 mg Vitamin A (Vitamin A & D Oint Ud Foilpak) 1 ea TOP Q8 PRN PRN Reason: Dry skin - Labs Labs: 01/03/18 07:46 01/03/18 07:46 PT 12.0 SECONDS (9.7-12.2) 12/28/17 11:56 INR 1.1 12/28/17 11:56 APTT 36 SECONDS (21-34) H 12/28/17 11:56 - Constitutional Appears: Well, No Acute Distress - Head Exam Head Exam: NORMAL INSPECTION, NORMOCEPHALIC - Eye Exam Eye Exam: EOMI, Normal appearance - ENT Exam ENT Exam: Mucous Membranes Moist - Respiratory Exam Respiratory Exam: Clear to Ausculation Bilateral, NORMAL BREATHING PATTERN - Cardiovascular Exam Cardiovascular Exam: REGULAR RHYTHM - Extremities Exam Extremities Exam: Full ROM Additional comments: Elbow is covered with more 4 x 4 and dressing today. Area is not erethematous, no active drainage, no tenderness with palpation - Neurological Exam Neurological Exam: Alert, Awake Neuro motor strength exam: Left Upper Extremity: 5, Right Upper Extremity: 5, Left Lower Extremity: 5, Right Lower Extremity: 5 - Psychiatric Exam Psychiatric exam: Normal Affect, Normal Mood - Skin Skin Exam: Normal Color, Warm Assessment and Plan - Assessment and Plan (Free Text) Assessment: Assessment: 43 year old male with history of depression admitted for psychiatric treatment. Medicine consulted for evaluation of left elbow wound. He's POD#4 of L elbow incision and drainage. Plan: Olecranon Cellulitis with Bursitis Will get ID evaluation, currently on PO clindamycin Pending MRI tommorow. Per ortho no involvment of the joint XR L elbow: soft tissue swelling, suggesting olecranon bursitis Left elbow MRI: Limited study as the patient could not tolerate gadolinium. Extensive motion artifact. 1. At the level of the olecranon bursa, there is a 1.4 x.4 x 5.7 centimeter lobulated heterogeneous increased STIR signal intensity collection. This is suggestive for an underlying olecranon bursitis with superimposed acute inflammatory and or infectious changes not excluded. Please note no contrast was given on this study, markedly limiting evaluation for abscess formation. Prominent reticulation and edema within the adjacent subcutan eous soft tissues. No gross signal abnormality within the adjacent olecranon to suggest an acute osteomyelitis. 2. Heterogeneity of the visualized marrow within the proximal radius with patchy decreased T1 signal suggestive for hematopoietic marrow reconversion. 3. Small elbow joint effusion. - Wound Cx: MRSA - Meds: Clindamycin Merrem 500mg IV (12/28 -12/29) Switched to PO Clindamycin 300mg po TID (started 12/29), plan to continue Clindamycin for 7 days. Florastor 250 mg PO daily Tylenol 650mg PO q6h PRN pain Percocet 1 tab Q4 PRN - Isolation, contact precautions - Gen Sx consulted: Dr. Lloyd, help appreciated History of depression with psychotic features - Patient currently denies suicidal or homicidal thoughts with no auditory or visual hallucinations. - Dr. Owusu on board, help appreciated - Meds: Ability 15mg PO Wellbutrin 150mg PO daily Haldol 5mg PO Q4 PRN Atarax 50mg PO Q6 PRN Nicotine patch Trazodone 150mg PO HS PRN
[2018-01-04 09:02] LABS: HEMOGLOBIN 11.1 g/dL (12.0-18.0); MEAN CELL VOLUME 83.4 fL (80.0-94.0); MEAN CORPUSCULAR HEMOGLOBIN 27.3 pg (27.0-31.0); MEAN CORPUSCULAR HGB CONC 32.8 g/dL (33.0-37.0); MEAN PLATELET VOLUME 7.8 fL (7.2-11.7); RBC 4.07 Mil/uL (4.40-5.90); RED CELL DISTRIBUTION WIDTH 19.2 % (11.5-14.5); WHITE BLOOD COUNT 3.4 K/uL (4.8-10.8)
[2018-01-04 09:25] LABS: ALB/GLOB RATIO 1.2 (1.0-2.1); ALBUMIN 3.3 g/dL (3.5-5.0); ALT/SGPT 32 U/L (21-72); AST/SGOT 29 U/L (17-59); BLOOD UREA NITROGEN 12 mg/dL (9-20); CALCIUM 8.3 mg/dl (8.6-10.4); GFR NON-AFRICAN AMERICAN > 60
[2018-01-04] MEDS: Saccharomyces Boulardi 250 mg Cap PO SCH ×2 (10:31→17:51)
[2018-01-04] MEDS: Multiple Vitamins Tab PO SCH (10:31)
--- NOTE | 2018-01-04 14:04 | CP.PCM.PN ---
Subjective - Date & Time of Evaluation Date of Evaluation: 01/04/18 Time of Evaluation: 11:00 - Subjective Subjective: PGY-1 Medicine Progress Note for Dr. Mahmood's service Patient seen and examined at bedside. Patient reports left elbow pain s/p incision and drainage with dressing in place as per surgery team. Patient denies fevers, chills, chest pain, sob, n/v, constipation or diarrhea, dysuria. Objective - Vital Signs/Intake and Output Vital Signs (last 24 hours): Temp Pulse Resp BP Pulse Ox 97.4 F L 92 H 20 101/67 98 01/04/18 07:00 01/04/18 07:00 01/04/18 07:00 01/04/18 07:00 01/04/18 07:00 Intake and Output: 01/04/18 01/04/18 06:59 18:59 Intake Total 450 Balance 450 - Medications Medications: Current Medications Acetaminophen (Tylenol 325mg Tab) 650 mg PO Q6 PRN PRN Reason: Pain, moderate (4-7) Last Admin: 01/04/18 10:31 Dose: 650 mg Aripiprazole (Abilify) 15 mg PO DAILY [facility] Last Admin: 01/04/18 10:32 Dose: 15 mg Bacitracin (Bacitracin) 1 gm TOP Q6H PRN PRN Reason: Abrasion Last Admin: 12/24/17 18:30 Dose: 1 gm Bupropion HCl (Wellbutrin) 150 mg PO DAILY [facility] Last Admin: 01/04/18 10:33 Dose: 150 mg Clindamycin HCl (Cleocin) 300 mg PO TID [facility]; Protocol Stop: 01/08/18 23:55 Last Admin: 01/04/18 10:32 Dose: 300 mg Emollient Ointment (Vaseline Oint) 5 gm TOP Q4H PRN PRN Reason: Dry skin Last Admin: 01/01/18 12:15 Dose: 5 gm Folic Acid (Folic Acid) 1 mg PO DAILY [facility] Last Admin: 01/04/18 10:31 Dose: 1 mg Gabapentin (Neurontin) 300 mg PO BID [facility] Last Admin: 01/04/18 10:32 Dose: 300 mg Haloperidol (Haldol) 5 mg PO Q4 PRN PRN Reason: Agitation Hydroxyzine HCl (Atarax) 50 mg PO Q6 PRN PRN Reason: Anxiety Multivitamins (Hexavitamin) 1 tab PO DAILY [facility] Last Admin: 01/04/18 10:31 Dose: 1 tab Nicotine (Nicoderm Cq) 1 patch TD DAILY [facility] Last Admin: 01/04/18 10:32 Dose: 1 patch Saccharomyces Boulardii (Florastor) 250 mg PO BID [facility] Last Admin: 01/04/18 10:31 Dose: 250 mg Thiamine HCl (Vitamin B1 Tab) 100 mg PO DAILY [facility] Last Admin: 01/04/18 10:31 Dose: 100 mg Trazodone HCl (Desyrel) 150 mg PO HS PRN PRN Reason: Insomnia Last Admin: 01/03/18 22:53 Dose: 150 mg Vitamin A (Vitamin A & D Oint Ud Foilpak) 1 ea TOP Q8 PRN PRN Reason: Dry skin - Labs Labs: 01/04/18 08:50 01/04/18 08:50 PT 12.0 SECONDS (9.7-12.2) 12/28/17 11:56 INR 1.1 12/28/17 11:56 APTT 36 SECONDS (21-34) H 12/28/17 11:56 - Constitutional Appears: Non-toxic, No Acute Distress - Head Exam Head Exam: NORMAL INSPECTION, NORMOCEPHALIC - Eye Exam Eye Exam: EOMI, Normal appearance. absent: Nystagmus, Scleral icterus - ENT Exam ENT Exam: Mucous Membranes Moist - Respiratory Exam Respiratory Exam: Clear to Ausculation Bilateral, NORMAL BREATHING PATTERN. absent: Decreased Breath Sounds, Rales, Rhonchi, Wheezes - Cardiovascular Exam Cardiovascular Exam: REGULAR RHYTHM, +S1, +S2. absent: Bradycardia, Tachycardia - GI/Abdominal Exam GI & Abdominal Exam: Soft, Normal Bowel Sounds. absent: Distended, Firm, Guarding, Rigid, Tenderness - Extremities Exam Extremities Exam: Normal Inspection. absent: Calf Tenderness, Pedal Edema Additional comments: Elbow is covered with a 4 x 4 dressing today. Area is not erethematous, no active drainage, no tenderness with palpation - Neurological Exam Neurological Exam: Alert, Awake, Oriented x3 - Psychiatric Exam Psychiatric exam: Normal Affect, Normal Mood - Skin Skin Exam: Intact, Normal Color Assessment and Plan - Assessment and Plan (Free Text) Assessment: Elbow is covered with more 4 x 4 and dressing today. Area is not erethematous, no active drainage, no tenderness with palpation Plan: Left elbow cellulitis Ortho Consulted- no acute intervention required 12/28/17 MRI- Limited study as the patient could not tolerate gadolinium. Extensive motion artifact. 1. At the level of the olecranon bursa, there is a 1.4 x.4 x 5.7 centimeter lobulated heterogeneous increased STIR signal intensity collection. This is suggestive for an underlying olecranon bursitis with superimposed acute inflammatory and or infectious changes not excluded. Please note no contrast was given on this study, markedly limiting evaluation for abscess formation. Prominent reticulation and edema within the adjacent subcutaneous soft tissues. No gross signal abnormality within the adjacent olecranon to suggest an acute osteomyelitis. 2. Heterogeneity of the visualized marrow within the proximal radius with patchy decreased T1 signal suggestive for hematopoietic marrow reconversion. 3. Small elbow joint effusion. Repeat MRI pending to rule out abscess or osteo Afebrile, no leukocytosis noted Clindamycin 300mg po tid [facility]; Bacitracin 1gm top q6h prn; Florastor 250 mg po daily Wound cx positive for MRSA History of depression with psychotic features Psych Consulted- Dr. Owusu- recommendations as below Patient currently denies suicidal or homicidal thoughts with no auditory or visual hallucinations. Ability 15mg PO Wellbutrin 150mg PO daily Haldol 5mg PO Q4 PRN Atarax 50mg PO Q6 PRN Trazodone 150mg PO HS PRN PPX DVT ppx- SCDs GI ppx- Florastor
[2018-01-04] MEDS: Meropenem 1 GM in Sodium Chloride 0.9% 100 ML IVPB SCH (17:51)
--- NOTE | 2018-01-04 18:48 | CP.PCM.PN ---
<Sasha Valdovinos - Last Filed: 01/04/18 18:45> Subjective - Date & Time of Evaluation Date of Evaluation: 01/04/18 Time of Evaluation: 18:45 - Subjective Subjective: Surgery: Dr. Lloyd Pt seen and examined. No acute overnight events. States he feels well and admits to some pain around his elbow but denies other complaints. Pt is able to move arm around without any issues. Denies any more purulent discharge. Denies fevers/chills. Objective - Vital Signs/Intake and Output Vital Signs (last 24 hours): Temp Pulse Resp BP Pulse Ox 97.7 F 72 20 104/70 97 01/04/18 16:31 01/04/18 16:31 01/04/18 16:31 01/04/18 16:31 01/04/18 16:31 Intake and Output: 01/04/18 01/04/18 06:59 18:59 Intake Total 450 Balance 450 - Medications Medications: Current Medications Acetaminophen (Tylenol 325mg Tab) 650 mg PO Q6 PRN PRN Reason: Pain, moderate (4-7) Last Admin: 01/04/18 10:31 Dose: 650 mg Aripiprazole (Abilify) 15 mg PO DAILY [facility] Last Admin: 01/04/18 10:32 Dose: 15 mg Bacitracin (Bacitracin) 1 gm TOP Q6H PRN PRN Reason: Abrasion Last Admin: 12/24/17 18:30 Dose: 1 gm Bupropion HCl (Wellbutrin) 150 mg PO DAILY [facility] Last Admin: 01/04/18 10:33 Dose: 150 mg Clindamycin HCl (Cleocin) 300 mg PO TID [facility]; Protocol Stop: 01/08/18 23:55 Last Admin: 01/04/18 17:51 Dose: 300 mg Emollient Ointment (Vaseline Oint) 5 gm TOP Q4H PRN PRN Reason: Dry skin Last Admin: 01/01/18 12:15 Dose: 5 gm Folic Acid (Folic Acid) 1 mg PO DAILY [facility] Last Admin: 01/04/18 10:31 Dose: 1 mg Gabapentin (Neurontin) 300 mg PO BID [facility] Last Admin: 01/04/18 17:51 Dose: 300 mg Haloperidol (Haldol) 5 mg PO Q4 PRN PRN Reason: Agitation Hydroxyzine HCl (Atarax) 50 mg PO Q6 PRN PRN Reason: Anxiety Meropenem 1 gm/ Sodium (Chloride) 100 mls @ 100 mls/hr IVPB Q8H [facility]; Protocol Last Admin: 01/04/18 17:51 Dose: 100 mls/hr Multivitamins (Hexavitamin) 1 tab PO DAILY [facility] Last Admin: 01/04/18 10:31 Dose: 1 tab Nicotine (Nicoderm Cq) 1 patch TD DAILY [facility] Last Admin: 01/04/18 10:32 Dose: 1 patch Saccharomyces Boulardii (Florastor) 250 mg PO BID [facility] Last Admin: 01/04/18 17:51 Dose: 250 mg Thiamine HCl (Vitamin B1 Tab) 100 mg PO DAILY [facility] Last Admin: 01/04/18 10:31 Dose: 100 mg Trazodone HCl (Desyrel) 150 mg PO HS PRN PRN Reason: Insomnia Last Admin: 01/03/18 22:53 Dose: 150 mg Vitamin A (Vitamin A & D Oint Ud Foilpak) 1 ea TOP Q8 PRN PRN Reason: Dry skin - Labs Labs: 01/04/18 08:50 01/04/18 08:50 PT 12.0 SECONDS (9.7-12.2) 12/28/17 11:56 INR 1.1 12/28/17 11:56 APTT 36 SECONDS (21-34) H 12/28/17 11:56 - Constitutional Appears: Well, No Acute Distress - Head Exam Head Exam: ATRAUMATIC, NORMOCEPHALIC - Eye Exam Eye Exam: Normal appearance - Respiratory Exam Respiratory Exam: NORMAL BREATHING PATTERN - Cardiovascular Exam Cardiovascular Exam: RRR - GI/Abdominal Exam GI & Abdominal Exam: Soft - Extremities Exam Additional comments: Left elbow with decreased erythema surrounding I&D site. No purulent drainage. - Neurological Exam Neurological Exam: Alert, Awake, Oriented x3 - Skin Skin Exam: Dry, Warm Assessment and Plan - Assessment and Plan (Free Text) Assessment: 47M with Left elbow abscess s/p I&D; POD#7 Plan: - cont IV ABX; recommend ID consult Dr. Aguilera - continue local wound care with daily dressing changes - encourage range of motion exercises - d/w Dr. Gabino Valdovinos <Nic Lloyd B - Last Filed: 01/10/18 18:47> Objective - Vital Signs/Intake and Output Vital Signs (last 24 hours): Temp Pulse Resp BP Pulse Ox 97.9 F 75 20 100/64 95 01/10/18 17:28 01/10/18 17:28 01/10/18 17:28 01/10/18 17:28 01/10/18 17:28 Intake and Output: 01/10/18 01/10/18 06:59 18:59 Intake Total 400 Balance 400 - Medications Medications: Current Medications Acetaminophen (Tylenol 325mg Tab) 650 mg PO Q6 PRN PRN Reason: Pain, moderate (4-7) Last Admin: 01/10/18 18:09 Dose: 650 mg Aripiprazole (Abilify) 15 mg PO DAILY [facility] Last Admin: 01/10/18 09:55 Dose: 15 mg Bacitracin (Bacitracin) 1 gm TOP Q6H PRN PRN Reason: Abrasion Last Admin: 12/24/17 18:30 Dose: 1 gm Bupropion HCl (Wellbutrin) 150 mg PO DAILY [facility] Last Admin: 01/10/18 09:56 Dose: 150 mg Emollient Ointment (Vaseline Oint) 5 gm TOP Q4H PRN PRN Reason: Dry skin Last Admin: 01/01/18 12:15 Dose: 5 gm Folic Acid (Folic Acid) 1 mg PO DAILY [facility] Last Admin: 01/10/18 09:52 Dose: 1 mg Gabapentin (Neurontin) 300 mg PO BID [facility] Last Admin: 01/10/18 17:40 Dose: 300 mg Haloperidol (Haldol) 5 mg PO Q4 PRN PRN Reason: Agitation Heparin Sodium (Porcine) (Heparin) 5,000 units SC Q8H [facility] Last Admin: 01/10/18 05:31 Dose: 5,000 units Hydroxyzine HCl (Atarax) 50 mg PO Q6 PRN PRN Reason: Anxiety Clindamycin Phosphate 600 mg/ (Sodium Chloride) 54 mls @ 100 mls/hr IVPB Q8H [facility]; Protocol Last Admin: 01/10/18 13:12 Dose: 100 mls/hr Midazolam HCl (Versed Inj) 2.5 mg IVP ONCE PRN PRN Reason: Anxiety Last Admin: 01/08/18 14:02 Dose: 2.5 mg Multivitamins (Hexavitamin) 1 tab PO DAILY [facility] Last Admin: 01/10/18 09:52 Dose: 1 tab Nicotine (Nicoderm Cq) 1 patch TD DAILY [facility] Last Admin: 01/10/18 09:52 Dose: 1 patch Saccharomyces Boulardii (Florastor) 250 mg PO BID [facility] Last Admin: 01/10/18 17:40 Dose: 250 mg Thiamine HCl (Vitamin B1 Tab) 100 mg PO DAILY [facility] Last Admin: 01/10/18 09:52 Dose: 100 mg Trazodone HCl (Desyrel) 150 mg PO HS PRN PRN Reason: Insomnia Last Admin: 01/09/18 22:28 Dose: 150 mg Vitamin A (Vitamin A & D Oint Ud Foilpak) 1 ea TOP Q8 PRN PRN Reason: Dry skin Last Admin: 01/05/18 09:25 Dose: 1 ea - Labs Labs: 01/10/18 07:25 01/10/18 07:25 PT 12.0 SECONDS (9.7-12.2) 12/28/17 11:56 INR 1.1 12/28/17 11:56 APTT 36 SECONDS (21-34) H 12/28/17 11:56 Attending/Attestation - Attestation I have personally seen and examined this patient.: Yes I have fully participated in the care of the patient.: Yes I have reviewed all pertinent clinical information, including history, physical exam and plan: Yes Notes (Text): Pt was seen and examined at bedside Agree with above note and assessment Pt is improving clinically Cellulitis of left elbow present MRI today ID consult, Start IV Cynthiam Plan d.w pt in detail Risk and benefit explained in detail.
[2018-01-05] MEDS: Meropenem 1 GM in Sodium Chloride 0.9% 100 ML IVPB SCH ×2 (01:01→11:23)
[2018-01-05 07:09] LABS: HEMOGLOBIN 11.7 g/dL (12.0-18.0); MEAN CELL VOLUME 82.2 fL (80.0-94.0); MEAN CORPUSCULAR HEMOGLOBIN 27.2 pg (27.0-31.0); MEAN CORPUSCULAR HGB CONC 33.1 g/dL (33.0-37.0); MEAN PLATELET VOLUME 7.4 fL (7.2-11.7); RBC 4.29 Mil/uL (4.40-5.90); WHITE BLOOD COUNT 3.8 K/uL (4.8-10.8)
[2018-01-05 07:39] LABS: ALB/GLOB RATIO 1.2 (1.0-2.1); ALBUMIN 3.5 g/dL (3.5-5.0); ALT/SGPT 33 U/L (21-72); AST/SGOT 36 U/L (17-59); BLOOD UREA NITROGEN 12 mg/dL (9-20); CALCIUM 8.9 mg/dl (8.6-10.4); GFR NON-AFRICAN AMERICAN > 60
[2018-01-05] MEDS: Multiple Vitamins Tab PO SCH (09:24)
[2018-01-05] MEDS: Saccharomyces Boulardi 250 mg Cap PO SCH ×2 (09:25→17:33)
--- NOTE | 2018-01-05 10:51 | CP.PCM.PN ---
<Cyrus Killian - Last Filed: 01/05/18 15:37> Subjective - Date & Time of Evaluation Date of Evaluation: 01/05/18 Time of Evaluation: 10:48 - Subjective Subjective: General Surgery Progress Note for Dr. Lloyd This 47M was seen and examined this Am at bedside no acute events reported overnight. He continues to report pain with passive and active motion ofhis left elbow however he does report that it is improving. He denies any fevers, chills, chest pain, SOB, or any new or concerning symptoms. Dressing was changed this AM during rounds. He was taken to MRI this AM however he was not able to get the LUE MRI due to shoulder pain. Objective - Vital Signs/Intake and Output Vital Signs (last 24 hours): Temp Pulse Resp BP Pulse Ox 97.5 F L 63 20 108/64 99 01/05/18 07:00 01/05/18 07:00 01/05/18 07:00 01/05/18 07:00 01/05/18 07:00 Intake and Output: 01/05/18 01/05/18 06:59 18:59 Intake Total 450 Balance 450 - Medications Medications: Current Medications Acetaminophen (Tylenol 325mg Tab) 650 mg PO Q6 PRN PRN Reason: Pain, moderate (4-7) Last Admin: 01/04/18 22:15 Dose: 650 mg Aripiprazole (Abilify) 15 mg PO DAILY [facility] Last Admin: 01/04/18 10:32 Dose: 15 mg Bacitracin (Bacitracin) 1 gm TOP Q6H PRN PRN Reason: Abrasion Last Admin: 12/24/17 18:30 Dose: 1 gm Bupropion HCl (Wellbutrin) 150 mg PO DAILY [facility] Last Admin: 01/05/18 09:25 Dose: 150 mg Clindamycin HCl (Cleocin) 300 mg PO TID [facility]; Protocol Stop: 01/08/18 23:55 Last Admin: 01/05/18 09:24 Dose: 300 mg Emollient Ointment (Vaseline Oint) 5 gm TOP Q4H PRN PRN Reason: Dry skin Last Admin: 01/01/18 12:15 Dose: 5 gm Folic Acid (Folic Acid) 1 mg PO DAILY [facility] Last Admin: 01/05/18 09:24 Dose: 1 mg Gabapentin (Neurontin) 300 mg PO BID [facility] Last Admin: 01/05/18 09:25 Dose: 300 mg Haloperidol (Haldol) 5 mg PO Q4 PRN PRN Reason: Agitation Hydroxyzine HCl (Atarax) 50 mg PO Q6 PRN PRN Reason: Anxiety Meropenem 1 gm/ Sodium (Chloride) 100 mls @ 100 mls/hr IVPB Q8H [facility]; Protocol Last Admin: 01/05/18 01:01 Dose: 100 mls/hr Multivitamins (Hexavitamin) 1 tab PO DAILY [facility] Last Admin: 01/05/18 09:24 Dose: 1 tab Nicotine (Nicoderm Cq) 1 patch TD DAILY [facility] Last Admin: 01/04/18 10:32 Dose: 1 patch Saccharomyces Boulardii (Florastor) 250 mg PO BID [facility] Last Admin: 01/05/18 09:25 Dose: 250 mg Thiamine HCl (Vitamin B1 Tab) 100 mg PO DAILY [facility] Last Admin: 01/04/18 10:31 Dose: 100 mg Trazodone HCl (Desyrel) 150 mg PO HS PRN PRN Reason: Insomnia Last Admin: 01/04/18 22:14 Dose: 150 mg Vitamin A (Vitamin A & D Oint Ud Foilpak) 1 ea TOP Q8 PRN PRN Reason: Dry skin Last Admin: 01/05/18 09:25 Dose: 1 ea - Labs Labs: 01/05/18 06:59 01/05/18 06:59 PT 12.0 SECONDS (9.7-12.2) 12/28/17 11:56 INR 1.1 12/28/17 11:56 APTT 36 SECONDS (21-34) H 12/28/17 11:56 - Constitutional Appears: Well, No Acute Distress - Head Exam Head Exam: ATRAUMATIC, NORMOCEPHALIC - Eye Exam Eye Exam: Normal appearance - Respiratory Exam Respiratory Exam: NORMAL BREATHING PATTERN - Cardiovascular Exam Cardiovascular Exam: RRR - GI/Abdominal Exam GI & Abdominal Exam: Soft - Extremities Exam Additional comments: Left elbow with decreased erythema surrounding I&D site. No purulent drainage. - Neurological Exam Neurological Exam: Alert, Awake, Oriented x3 - Skin Skin Exam: Dry, Warm Assessment and Plan - Assessment and Plan (Free Text) Assessment: 47M with Left elbow abscess s/p I&D; POD#8 Plan: - cont IV ABX - F/U recommendations of RODNEY Aguilera - continue local wound care with daily dressing changes - encourage range of motion exercises Further recs per Dr. Gabino Bridges Moyefrain PGY3 <Nic Lloyd - Last Filed: 01/10/18 18:48> Objective - Vital Signs/Intake and Output Vital Signs (last 24 hours): Temp Pulse Resp BP Pulse Ox 97.9 F 75 20 100/64 95 01/10/18 17:28 01/10/18 17:28 01/10/18 17:28 01/10/18 17:28 01/10/18 17:28 Intake and Output: 01/10/18 01/10/18 06:59 18:59 Intake Total 400 Balance 400 - Medications Medications: Current Medications Acetaminophen (Tylenol 325mg Tab) 650 mg PO Q6 PRN PRN Reason: Pain, moderate (4-7) Last Admin: 01/10/18 18:09 Dose: 650 mg Aripiprazole (Abilify) 15 mg PO DAILY [facility] Last Admin: 01/10/18 09:55 Dose: 15 mg Bacitracin (Bacitracin) 1 gm TOP Q6H PRN PRN Reason: Abrasion Last Admin: 12/24/17 18:30 Dose: 1 gm Bupropion HCl (Wellbutrin) 150 mg PO DAILY [facility] Last Admin: 01/10/18 09:56 Dose: 150 mg Emollient Ointment (Vaseline Oint) 5 gm TOP Q4H PRN PRN Reason: Dry skin Last Admin: 01/01/18 12:15 Dose: 5 gm Folic Acid (Folic Acid) 1 mg PO DAILY [facility] Last Admin: 01/10/18 09:52 Dose: 1 mg Gabapentin (Neurontin) 300 mg PO BID [facility] Last Admin: 01/10/18 17:40 Dose: 300 mg Haloperidol (Haldol) 5 mg PO Q4 PRN PRN Reason: Agitation Heparin Sodium (Porcine) (Heparin) 5,000 units SC Q8H [facility] Last Admin: 01/10/18 05:31 Dose: 5,000 units Hydroxyzine HCl (Atarax) 50 mg PO Q6 PRN PRN Reason: Anxiety Clindamycin Phosphate 600 mg/ (Sodium Chloride) 54 mls @ 100 mls/hr IVPB Q8H [facility]; Protocol Last Admin: 01/10/18 13:12 Dose: 100 mls/hr Midazolam HCl (Versed Inj) 2.5 mg IVP ONCE PRN PRN Reason: Anxiety Last Admin: 01/08/18 14:02 Dose: 2.5 mg Multivitamins (Hexavitamin) 1 tab PO DAILY [facility] Last Admin: 01/10/18 09:52 Dose: 1 tab Nicotine (Nicoderm Cq) 1 patch TD DAILY [facility] Last Admin: 01/10/18 09:52 Dose: 1 patch Saccharomyces Boulardii (Florastor) 250 mg PO BID [facility] Last Admin: 01/10/18 17:40 Dose: 250 mg Thiamine HCl (Vitamin B1 Tab) 100 mg PO DAILY [facility] Last Admin: 01/10/18 09:52 Dose: 100 mg Trazodone HCl (Desyrel) 150 mg PO HS PRN PRN Reason: Insomnia Last Admin: 01/09/18 22:28 Dose: 150 mg Vitamin A (Vitamin A & D Oint Ud Foilpak) 1 ea TOP Q8 PRN PRN Reason: Dry skin Last Admin: 01/05/18 09:25 Dose: 1 ea - Labs Labs: 01/10/18 07:25 01/10/18 07:25 PT 12.0 SECONDS (9.7-12.2) 12/28/17 11:56 INR 1.1 12/28/17 11:56 APTT 36 SECONDS (21-34) H 12/28/17 11:56 Attending/Attestation - Attestation I have personally seen and examined this patient.: Yes I have fully participated in the care of the patient.: Yes I have reviewed all pertinent clinical information, including history, physical exam and plan: Yes Notes (Text): Pt was seen and examined at bedside Agree with above note and assessment Pt is stable clinically Cellulitis is improving Pt didn't tolerate MRI C.w current mx Plan d.w pt in detail
--- NOTE | 2018-01-05 12:36 | CP.PCM.CON ---
History of Present Illness - History of Present Illness History of Present Illness: seen on rounds IV rx in progress await MRI consider IV clinda 600 q8h or Vanco 1g q8h for MRSA d/c merrem if repeat cultures negative Review of Systems - Review of Systems All systems: reviewed and no additional remarkable complaints except Past Patient History - Infectious Disease Hx of Infectious Diseases: None - Tetanus Immunizations Tetanus Immunization: Unknown - Past Medical History & Family History Past Medical History?: Yes - Past Social History Smoking Status: Light Smoker < 10 Cigarettes Daily - CARDIAC Hx Cardiac Disorders: No - PULMONARY Hx Respiratory Disorders: No - NEUROLOGICAL Hx Neurological Disorder: No - HEENT Hx HEENT Problems: No - RENAL Hx Chronic Kidney Disease: No - ENDOCRINE/METABOLIC Hx Endocrine Disorders: No - HEMATOLOGICAL/ONCOLOGICAL Hx Blood Disorders: No - INTEGUMENTARY Hx Dermatological Problems: No - MUSCULOSKELETAL/RHEUMATOLOGICAL Hx Musculoskeletal Disorders: Yes Hx Falls: No Hx Spinal Stenosis: Yes Other/Comment: spinal stenosis - GASTROINTESTINAL Hx Gastrointestinal Disorders: No - GENITOURINARY/GYNECOLOGICAL Hx Genitourinary Disorders: No - PSYCHIATRIC Hx Substance Use: Yes - SURGICAL HISTORY Hx Surgeries: Yes Hx Herniorrhaphy: Yes Hx Orthopedic Surgery: Yes (rt shoulder) - ANESTHESIA Hx Anesthesia: Yes Hx Anesthesia Reactions: No Meds Home Medications: Home Medication List Medication Instructions Recorded Confirmed Type ARIPiprazole [Abilify] 15 mg PO DAILY #30 tab 12/30/17 Rx buPROPion [Wellbutrin] 150 mg PO DAILY #30 tab 12/30/17 Rx traZODone [Desyrel] 100 mg PO HS PRN #60 tab 12/30/17 Rx Allergies/Adverse Reactions: Allergies Allergy/AdvReac Type Severity Reaction Status Date / Time ibuprofen Allergy ITCHING Verified 12/24/17 10:24 naproxen [From Naprosyn] Allergy ITCHING Verified 12/24/17 10:24 - Medications Medications: Current Medications Acetaminophen (Tylenol 325mg Tab) 650 mg PO Q6 PRN PRN Reason: Pain, moderate (4-7) Last Admin: 01/04/18 22:15 Dose: 650 mg Aripiprazole (Abilify) 15 mg PO DAILY [facility] Last Admin: 01/05/18 11:23 Dose: 15 mg Bacitracin (Bacitracin) 1 gm TOP Q6H PRN PRN Reason: Abrasion Last Admin: 12/24/17 18:30 Dose: 1 gm Bupropion HCl (Wellbutrin) 150 mg PO DAILY [facility] Last Admin: 01/05/18 09:25 Dose: 150 mg Clindamycin HCl (Cleocin) 300 mg PO TID [facility]; Protocol Stop: 01/08/18 23:55 Last Admin: 01/05/18 09:24 Dose: 300 mg Emollient Ointment (Vaseline Oint) 5 gm TOP Q4H PRN PRN Reason: Dry skin Last Admin: 01/01/18 12:15 Dose: 5 gm Folic Acid (Folic Acid) 1 mg PO DAILY [facility] Last Admin: 01/05/18 09:24 Dose: 1 mg Gabapentin (Neurontin) 300 mg PO BID [facility] Last Admin: 01/05/18 09:25 Dose: 300 mg Haloperidol (Haldol) 5 mg PO Q4 PRN PRN Reason: Agitation Hydroxyzine HCl (Atarax) 50 mg PO Q6 PRN PRN Reason: Anxiety Meropenem 1 gm/ Sodium (Chloride) 100 mls @ 100 mls/hr IVPB Q8H [facility]; Protocol Last Admin: 01/05/18 11:23 Dose: 100 mls/hr Multivitamins (Hexavitamin) 1 tab PO DAILY [facility] Last Admin: 01/05/18 09:24 Dose: 1 tab Nicotine (Nicoderm Cq) 1 patch TD DAILY [facility] Last Admin: 01/05/18 09:25 Dose: 1 patch Saccharomyces Boulardii (Florastor) 250 mg PO BID [facility] Last Admin: 01/05/18 09:25 Dose: 250 mg Thiamine HCl (Vitamin B1 Tab) 100 mg PO DAILY [facility] Last Admin: 01/05/18 09:25 Dose: 100 mg Trazodone HCl (Desyrel) 150 mg PO HS PRN PRN Reason: Insomnia Last Admin: 01/04/18 22:14 Dose: 150 mg Vitamin A (Vitamin A & D Oint Ud Foilpak) 1 ea TOP Q8 PRN PRN Reason: Dry skin Last Admin: 01/05/18 09:25 Dose: 1 ea Physical Exam - Constitutional Appears: Chronically Ill - Head Exam Head Exam: ATRAUMATIC, NORMOCEPHALIC - Eye Exam Eye Exam: absent: Scleral icterus - ENT Exam ENT Exam: Mucous Membranes Dry - Neck Exam Neck exam: Negative for: Lymphadenopathy - Respiratory Exam Respiratory Exam: Decreased Breath Sounds, Clear to Auscultation Bilateral - Cardiovascular Exam Cardiovascular Exam: REGULAR RHYTHM, +S1, +S2 - GI/Abdominal Exam GI & Abdominal Exam: Diminished Bowel Sounds, Soft. absent: Tenderness - Rectal Exam Rectal Exam: Deferred - Exam Exam: NORMAL INSPECTION - Extremities Exam Extremities exam: Negative for: pedal edema - Back Exam Back exam: absent: CVA tenderness (L), CVA tenderness (R) - Neurological Exam Neurological exam: Alert, CN II-XII Intact, Oriented x3, Reflexes Normal - Psychiatric Exam Psychiatric exam: Depressed - Skin Skin Exam: Dry Additional comments: + cellulitis over olecranon bursa Results - Vital Signs Recent Vital Signs: Last Vital Signs Temp 97.7 F 01/05/18 12:27 Pulse 76 01/05/18 12:27 Resp 20 01/05/18 12:27 BP 119/80 01/05/18 12:27 Pulse Ox 98 01/05/18 12:27 - Labs Result Diagrams: 01/06/18 07:36 01/06/18 07:36 Labs: Laboratory Results - last 24 hr 01/04/18 01/04/18 01/04/18 11:40 16:09 16:11 WBC RBC Hgb Hct MCV MCH MCHC RDW Plt Count MPV Sodium Potassium Chloride Carbon Dioxide Anion Gap BUN Creatinine Est GFR ( Amer) Est GFR (Non-Af Amer) POC Glucose (mg/dL) 74 69 65 Random Glucose Calcium Total Bilirubin AST ALT Alkaline Phosphatase Total Protein Albumin Globulin Albumin/Globulin Ratio 01/04/18 01/05/18 01/05/18 21:01 06:59 06:59 WBC 3.8 L RBC 4.29 L Hgb 11.7 L Hct 35.3 MCV 82.2 MCH 27.2 MCHC 33.1 RDW 19.0 H Plt Count 276 MPV 7.4 Sodium 138 Potassium 4.4 Chloride 100 Carbon Dioxide 27 Anion Gap 15 BUN 12 Creatinine 0.8 Est GFR ( Amer) > 60 Est GFR (Non-Af Amer) > 60 POC Glucose (mg/dL) 73 Random Glucose 81 Calcium 8.9 Total Bilirubin 0.3 AST 36 ALT 33 Alkaline Phosphatase 72 Total Protein 6.5 Albumin 3.5 Globulin 3.0 Albumin/Globulin Ratio 1.2 Assessment & Plan - Assessment and Plan (Free Text) Assessment: await MRI if MRI neg can treat with IV then PO clinda for total 7 - 10 days post I and D
--- NOTE | 2018-01-05 13:19 | CP.PCM.PN ---
Subjective - Date & Time of Evaluation Date of Evaluation: 01/05/18 Time of Evaluation: 10:47 - Subjective Subjective: PGY-1 Medicine Progress Note for Dr. Mahmood's service Patient seen and examined at bedside. Patient offers no acute complaints. Patient was scheduled to have MRI today. Patient denies fevers, chills, chest pain, sob, n/v, constipation or diarrhea, and dysuria. Objective - Vital Signs/Intake and Output Vital Signs (last 24 hours): Temp Pulse Resp BP Pulse Ox 97.7 F 76 20 119/80 98 01/05/18 12:27 01/05/18 12:27 01/05/18 12:27 01/05/18 12:27 01/05/18 12:27 Intake and Output: 01/05/18 01/05/18 06:59 18:59 Intake Total 450 Balance 450 - Medications Medications: Current Medications Acetaminophen (Tylenol 325mg Tab) 650 mg PO Q6 PRN PRN Reason: Pain, moderate (4-7) Last Admin: 01/04/18 22:15 Dose: 650 mg Aripiprazole (Abilify) 15 mg PO DAILY [facility] Last Admin: 01/05/18 11:23 Dose: 15 mg Bacitracin (Bacitracin) 1 gm TOP Q6H PRN PRN Reason: Abrasion Last Admin: 12/24/17 18:30 Dose: 1 gm Bupropion HCl (Wellbutrin) 150 mg PO DAILY [facility] Last Admin: 01/05/18 09:25 Dose: 150 mg Clindamycin HCl (Cleocin) 300 mg PO TID [facility]; Protocol Stop: 01/08/18 23:55 Last Admin: 01/05/18 09:24 Dose: 300 mg Emollient Ointment (Vaseline Oint) 5 gm TOP Q4H PRN PRN Reason: Dry skin Last Admin: 01/01/18 12:15 Dose: 5 gm Folic Acid (Folic Acid) 1 mg PO DAILY [facility] Last Admin: 01/05/18 09:24 Dose: 1 mg Gabapentin (Neurontin) 300 mg PO BID [facility] Last Admin: 01/05/18 09:25 Dose: 300 mg Haloperidol (Haldol) 5 mg PO Q4 PRN PRN Reason: Agitation Hydroxyzine HCl (Atarax) 50 mg PO Q6 PRN PRN Reason: Anxiety Meropenem 1 gm/ Sodium (Chloride) 100 mls @ 100 mls/hr IVPB Q8H [facility]; Protocol Last Admin: 01/05/18 11:23 Dose: 100 mls/hr Multivitamins (Hexavitamin) 1 tab PO DAILY [facility] Last Admin: 01/05/18 09:24 Dose: 1 tab Nicotine (Nicoderm Cq) 1 patch TD DAILY [facility] Last Admin: 01/05/18 09:25 Dose: 1 patch Saccharomyces Boulardii (Florastor) 250 mg PO BID [facility] Last Admin: 01/05/18 09:25 Dose: 250 mg Thiamine HCl (Vitamin B1 Tab) 100 mg PO DAILY [facility] Last Admin: 01/05/18 09:25 Dose: 100 mg Trazodone HCl (Desyrel) 150 mg PO HS PRN PRN Reason: Insomnia Last Admin: 01/04/18 22:14 Dose: 150 mg Vitamin A (Vitamin A & D Oint Ud Foilpak) 1 ea TOP Q8 PRN PRN Reason: Dry skin Last Admin: 01/05/18 09:25 Dose: 1 ea - Labs Labs: 01/05/18 06:59 01/05/18 06:59 PT 12.0 SECONDS (9.7-12.2) 12/28/17 11:56 INR 1.1 12/28/17 11:56 APTT 36 SECONDS (21-34) H 12/28/17 11:56 - Constitutional Appears: Non-toxic, No Acute Distress - Additional Findings Additional findings: - Constitutional Appears: Non-toxic, No Acute Distress - Head Exam Head Exam: NORMAL INSPECTION, NORMOCEPHALIC - Eye Exam Eye Exam: EOMI, Normal appearance. absent: Nystagmus, Scleral icterus - ENT Exam ENT Exam: Mucous Membranes Moist - Respiratory Exam Respiratory Exam: Clear to Ausculation Bilateral, NORMAL BREATHING PATTERN. absent: Decreased Breath Sounds, Rales, Rhonchi, Wheezes - Cardiovascular Exam Cardiovascular Exam: REGULAR RHYTHM, +S1, +S2. absent: Bradycardia, Tachycardia - GI/Abdominal Exam GI & Abdominal Exam: Soft, Normal Bowel Sounds. absent: Distended, Firm, Guarding, Rigid, Tenderness - Extremities Exam Extremities Exam: Normal Inspection. absent: Calf Tenderness, Pedal Edema Additional comments: Elbow is covered with a 4 x 4 dressing today. Area is not erethematous, no active drainage, no tenderness with palpation - Neurological Exam Neurological Exam: Alert, Awake, Oriented x3 - Psychiatric Exam Psychiatric exam: Normal Affect, Normal Mood - Skin Skin Exam: Intact, Normal Color Assessment and Plan - Assessment and Plan (Free Text) Assessment: 43 year old male with history of depression admitted for psychiatric treatment. Medicine consulted for evaluation of left elbow wound. S/P incision and drainage of left elbow 12/28/17. Plan: Left elbow cellulitis Ortho Consulted- no acute intervention required ID consulted- Dr. Aguilera- recommendations are to repeat blood cx and discontinue meropenem if negative, pending MRI results. 12/28/17 MRI- Limited study as the patient could not tolerate gadolinium. Extensive motion artifact. 1. At the level of the olecranon bursa, there is a 1.4 x.4 x 5.7 centimeter lobulated heterogeneous increased STIR signal intensity collection. This is suggestive for an underlying olecranon bursitis with superimposed acute inflammatory and or infectious changes not excluded. Please note no contrast was given on this study, markedly limiting evaluation for abscess formation. Prominent reticulation and edema within the adjacent subcutaneous soft tissues. No gross signal abnormality within the adjacent olecranon to suggest an acute osteomyelitis. 2. Heterogeneity of the visualized marrow within the proximal radius with patchy decreased T1 signal suggestive for hematopoietic marrow reconversion. 3. Small elbow joint effusion. Repeat MRI pending to rule out abscess or osteo Afebrile, no leukocytosis noted Clindamycin 300mg po tid [facility]; Bacitracin 1gm top q6h prn; Florastor 250 mg po daily Wound cx positive for MRSA History of depression with psychotic features Psych Consulted- Dr. Owusu- recommendations as below Patient currently denies suicidal or homicidal thoughts with no auditory or visual hallucinations. Ability 15mg PO Wellbutrin 150mg PO daily Haldol 5mg PO Q4 PRN Atarax 50mg PO Q6 PRN Trazodone 150mg PO HS PRN PPX DVT ppx- SCDs GI ppx- Florastor
[2018-01-06 07:49] LABS: HEMOGLOBIN 11.3 g/dL (12.0-18.0); MEAN CELL VOLUME 82.6 fL (80.0-94.0); MEAN CORPUSCULAR HEMOGLOBIN 27.1 pg (27.0-31.0); MEAN CORPUSCULAR HGB CONC 32.8 g/dL (33.0-37.0); MEAN PLATELET VOLUME 7.5 fL (7.2-11.7); RBC 4.16 Mil/uL (4.40-5.90); WHITE BLOOD COUNT 3.6 K/uL (4.8-10.8)
[2018-01-06 08:03] LABS: ALB/GLOB RATIO 1.1 (1.0-2.1); ALBUMIN 3.1 g/dL (3.5-5.0); ALT/SGPT 39 U/L (21-72); AST/SGOT 41 U/L (17-59); BLOOD UREA NITROGEN 12 mg/dL (9-20); CALCIUM 8.3 mg/dl (8.6-10.4); GFR NON-AFRICAN AMERICAN > 60
[2018-01-06] MEDS: Saccharomyces Boulardi 250 mg Cap PO SCH ×2 (10:45→17:49)
[2018-01-06] MEDS: Multiple Vitamins Tab PO SCH (10:45)
--- NOTE | 2018-01-06 10:56 | CP.PCM.PN ---
<Mariama Rosas - Last Filed: 01/06/18 17:25> Subjective - Date & Time of Evaluation Date of Evaluation: 01/06/18 Time of Evaluation: 07:00 - Subjective Subjective: GENERAL SURGERY PROGRESS NOTE FOR DR. LLOYD Patient seen and examined at bedside. Still reports some pain in the arm. Pt denies fever or chills. Tolerating diet. Objective - Vital Signs/Intake and Output Vital Signs (last 24 hours): Temp Pulse Resp BP Pulse Ox 97.5 F L 68 20 114/78 98 01/06/18 07:56 01/06/18 07:56 01/06/18 07:56 01/06/18 07:56 01/06/18 07:56 Intake and Output: 01/06/18 01/06/18 06:59 18:59 Intake Total 1340 Output Total 600 Balance 740 - Medications Medications: Current Medications Acetaminophen (Tylenol 325mg Tab) 650 mg PO Q6 PRN PRN Reason: Pain, moderate (4-7) Last Admin: 01/04/18 22:15 Dose: 650 mg Aripiprazole (Abilify) 15 mg PO DAILY [facility] Last Admin: 01/05/18 11:23 Dose: 15 mg Bacitracin (Bacitracin) 1 gm TOP Q6H PRN PRN Reason: Abrasion Last Admin: 12/24/17 18:30 Dose: 1 gm Bupropion HCl (Wellbutrin) 150 mg PO DAILY [facility] Last Admin: 01/05/18 09:25 Dose: 150 mg Emollient Ointment (Vaseline Oint) 5 gm TOP Q4H PRN PRN Reason: Dry skin Last Admin: 01/01/18 12:15 Dose: 5 gm Folic Acid (Folic Acid) 1 mg PO DAILY [facility] Last Admin: 01/05/18 09:24 Dose: 1 mg Gabapentin (Neurontin) 300 mg PO BID [facility] Last Admin: 01/05/18 17:33 Dose: 300 mg Haloperidol (Haldol) 5 mg PO Q4 PRN PRN Reason: Agitation Hydroxyzine HCl (Atarax) 50 mg PO Q6 PRN PRN Reason: Anxiety Clindamycin Phosphate 600 mg/ (Sodium Chloride) 54 mls @ 100 mls/hr IVPB Q8H [facility]; Protocol Last Admin: 01/06/18 05:21 Dose: 100 mls/hr Multivitamins (Hexavitamin) 1 tab PO DAILY [facility] Last Admin: 01/05/18 09:24 Dose: 1 tab Nicotine (Nicoderm Cq) 1 patch TD DAILY [facility] Last Admin: 01/05/18 09:25 Dose: 1 patch Saccharomyces Boulardii (Florastor) 250 mg PO BID [facility] Last Admin: 01/05/18 17:33 Dose: 250 mg Thiamine HCl (Vitamin B1 Tab) 100 mg PO DAILY [facility] Last Admin: 01/05/18 09:25 Dose: 100 mg Trazodone HCl (Desyrel) 150 mg PO HS PRN PRN Reason: Insomnia Last Admin: 01/05/18 22:44 Dose: 150 mg Vitamin A (Vitamin A & D Oint Ud Foilpak) 1 ea TOP Q8 PRN PRN Reason: Dry skin Last Admin: 01/05/18 09:25 Dose: 1 ea - Labs Labs: 01/06/18 07:36 01/06/18 07:36 PT 12.0 SECONDS (9.7-12.2) 12/28/17 11:56 INR 1.1 12/28/17 11:56 APTT 36 SECONDS (21-34) H 12/28/17 11:56 - Constitutional Appears: Non-toxic, No Acute Distress - Head Exam Head Exam: ATRAUMATIC, NORMAL INSPECTION - Eye Exam Eye Exam: EOMI, Normal appearance - Respiratory Exam Respiratory Exam: NORMAL BREATHING PATTERN. absent: Respiratory Distress - Cardiovascular Exam Cardiovascular Exam: +S1, +S2 - Extremities Exam Additional comments: Left elbow wound healing well, some surrounding erythema, no drainage noted - Neurological Exam Neurological Exam: Alert, Awake Assessment and Plan - Assessment and Plan (Free Text) Assessment: 47M POD#9 s/p incision and drainage of left elbow abscess Plan: - Continue daily dressing care - Continue in med/surg until wound has improved further - Repeat wound cx taken today, if cx negative, may DC Merrem - ESR and CRP ordered - Left elbow MRI to rule out osteo. Dose of morphine to be given prior to imaging for pt comfort Discussed with Dr. Gabino Rosas PGY-4 <Nic Lloyd - Last Filed: 01/10/18 18:49> Objective - Vital Signs/Intake and Output Vital Signs (last 24 hours): Temp Pulse Resp BP Pulse Ox 97.9 F 75 20 100/64 95 01/10/18 17:28 01/10/18 17:28 01/10/18 17:28 01/10/18 17:28 01/10/18 17:28 Intake and Output: 01/10/18 01/10/18 06:59 18:59 Intake Total 400 Balance 400 - Medications Medications: Current Medications Acetaminophen (Tylenol 325mg Tab) 650 mg PO Q6 PRN PRN Reason: Pain, moderate (4-7) Last Admin: 01/10/18 18:09 Dose: 650 mg Aripiprazole (Abilify) 15 mg PO DAILY [facility] Last Admin: 01/10/18 09:55 Dose: 15 mg Bacitracin (Bacitracin) 1 gm TOP Q6H PRN PRN Reason: Abrasion Last Admin: 12/24/17 18:30 Dose: 1 gm Bupropion HCl (Wellbutrin) 150 mg PO DAILY [facility] Last Admin: 01/10/18 09:56 Dose: 150 mg Emollient Ointment (Vaseline Oint) 5 gm TOP Q4H PRN PRN Reason: Dry skin Last Admin: 01/01/18 12:15 Dose: 5 gm Folic Acid (Folic Acid) 1 mg PO DAILY [facility] Last Admin: 01/10/18 09:52 Dose: 1 mg Gabapentin (Neurontin) 300 mg PO BID [facility] Last Admin: 01/10/18 17:40 Dose: 300 mg Haloperidol (Haldol) 5 mg PO Q4 PRN PRN Reason: Agitation Heparin Sodium (Porcine) (Heparin) 5,000 units SC Q8H [facility] Last Admin: 01/10/18 05:31 Dose: 5,000 units Hydroxyzine HCl (Atarax) 50 mg PO Q6 PRN PRN Reason: Anxiety Clindamycin Phosphate 600 mg/ (Sodium Chloride) 54 mls @ 100 mls/hr IVPB Q8H [facility]; Protocol Last Admin: 01/10/18 13:12 Dose: 100 mls/hr Midazolam HCl (Versed Inj) 2.5 mg IVP ONCE PRN PRN Reason: Anxiety Last Admin: 01/08/18 14:02 Dose: 2.5 mg Multivitamins (Hexavitamin) 1 tab PO DAILY [facility] Last Admin: 11/25/18 09:52 Dose: 1 tab Nicotine (Nicoderm Cq) 1 patch TD DAILY [facility] Last Admin: 01/10/18 09:52 Dose: 1 patch Saccharomyces Boulardii (Florastor) 250 mg PO BID [facility] Last Admin: 01/10/18 17:40 Dose: 250 mg Thiamine HCl (Vitamin B1 Tab) 100 mg PO DAILY [facility] Last Admin: 01/10/18 09:52 Dose: 100 mg Trazodone HCl (Desyrel) 150 mg PO HS PRN PRN Reason: Insomnia Last Admin: 01/09/18 22:28 Dose: 150 mg Vitamin A (Vitamin A & D Oint Ud Foilpak) 1 ea TOP Q8 PRN PRN Reason: Dry skin Last Admin: 01/05/18 09:25 Dose: 1 ea - Labs Labs: 01/10/18 07:25 01/10/18 07:25 PT 12.0 SECONDS (9.7-12.2) 12/28/17 11:56 INR 1.1 12/28/17 11:56 APTT 36 SECONDS (21-34) H 12/28/17 11:56 Attending/Attestation - Attestation I have personally seen and examined this patient.: Yes I have fully participated in the care of the patient.: Yes I have reviewed all pertinent clinical information, including history, physical exam and plan: Yes Notes (Text): Pt was seen and examined at bedside Agree with above note and assessment Pt is improving clinically Cellulitis is much better F/u orthopedic consult C.w current mx Plan d.w pt in detail
--- NOTE | 2018-01-06 15:11 | CP.PCM.PN ---
Subjective - Date & Time of Evaluation Date of Evaluation: 01/06/18 Time of Evaluation: 13:20 - Subjective Subjective: PGY-1 Medicine Progress Note for Dr. Mahmood's service Patient seen and examined at bedside. Patient offers no acute complaints. Patient denies fevers, chills, chest pain, shortness of breath, nausea/vomiting, constipation or diarrhea, and dysuria. Objective - Vital Signs/Intake and Output Vital Signs (last 24 hours): Temp Pulse Resp BP Pulse Ox 97.5 F L 68 20 114/78 98 01/06/18 07:56 01/06/18 07:56 01/06/18 07:56 01/06/18 07:56 01/06/18 07:56 Intake and Output: 01/06/18 01/06/18 06:59 18:59 Intake Total 1340 Output Total 600 Balance 740 - Medications Medications: Current Medications Acetaminophen (Tylenol 325mg Tab) 650 mg PO Q6 PRN PRN Reason: Pain, moderate (4-7) Last Admin: 01/04/18 22:15 Dose: 650 mg Aripiprazole (Abilify) 15 mg PO DAILY [facility] Last Admin: 01/06/18 11:27 Dose: 15 mg Bacitracin (Bacitracin) 1 gm TOP Q6H PRN PRN Reason: Abrasion Last Admin: 12/24/17 18:30 Dose: 1 gm Bupropion HCl (Wellbutrin) 150 mg PO DAILY [facility] Last Admin: 01/06/18 10:46 Dose: 150 mg Emollient Ointment (Vaseline Oint) 5 gm TOP Q4H PRN PRN Reason: Dry skin Last Admin: 01/01/18 12:15 Dose: 5 gm Folic Acid (Folic Acid) 1 mg PO DAILY [facility] Last Admin: 01/06/18 10:45 Dose: 1 mg Gabapentin (Neurontin) 300 mg PO BID [facility] Last Admin: 01/06/18 10:45 Dose: 300 mg Haloperidol (Haldol) 5 mg PO Q4 PRN PRN Reason: Agitation Hydroxyzine HCl (Atarax) 50 mg PO Q6 PRN PRN Reason: Anxiety Clindamycin Phosphate 600 mg/ (Sodium Chloride) 54 mls @ 100 mls/hr IVPB Q8H [facility]; Protocol Last Admin: 01/06/18 14:13 Dose: 100 mls/hr Multivitamins (Hexavitamin) 1 tab PO DAILY [facility] Last Admin: 01/06/18 10:45 Dose: 1 tab Nicotine (Nicoderm Cq) 1 patch TD DAILY [facility] Last Admin: 01/06/18 10:45 Dose: 1 patch Saccharomyces Boulardii (Florastor) 250 mg PO BID [facility] Last Admin: 01/06/18 10:45 Dose: 250 mg Thiamine HCl (Vitamin B1 Tab) 100 mg PO DAILY [facility] Last Admin: 01/06/18 10:45 Dose: 100 mg Trazodone HCl (Desyrel) 150 mg PO HS PRN PRN Reason: Insomnia Last Admin: 01/05/18 22:44 Dose: 150 mg Vitamin A (Vitamin A & D Oint Ud Foilpak) 1 ea TOP Q8 PRN PRN Reason: Dry skin Last Admin: 01/05/18 09:25 Dose: 1 ea - Labs Labs: 01/06/18 07:36 01/06/18 07:36 PT 12.0 SECONDS (9.7-12.2) 12/28/17 11:56 INR 1.1 12/28/17 11:56 APTT 36 SECONDS (21-34) H 12/28/17 11:56 - Additional Findings Additional findings: - Constitutional Appears: Non-toxic, No Acute Distress - Head Exam Head Exam: NORMAL INSPECTION, NORMOCEPHALIC - Eye Exam Eye Exam: EOMI, Normal appearance. absent: Nystagmus, Scleral icterus - ENT Exam ENT Exam: Mucous Membranes Moist - Respiratory Exam Respiratory Exam: Clear to Ausculation Bilateral, NORMAL BREATHING PATTERN. absent: Decreased Breath Sounds, Rales, Rhonchi, Wheezes - Cardiovascular Exam Cardiovascular Exam: REGULAR RHYTHM, +S1, +S2. absent: Bradycardia, Tachycardia - GI/Abdominal Exam GI & Abdominal Exam: Soft, Normal Bowel Sounds. absent: Distended, Firm, Guarding, Rigid, Tenderness - Extremities Exam Extremities Exam: Normal Inspection. absent: Calf Tenderness, Pedal Edema Additional comments: Elbow is covered with a 4 x 4 dressing today. Area is not erethematous, no active drainage, no tenderness with palpation - Neurological Exam Neurological Exam: Alert, Awake, Oriented x3 - Psychiatric Exam Psychiatric exam: Normal Affect, Normal Mood - Skin Skin Exam: Intact, Normal Color Assessment and Plan - Assessment and Plan (Free Text) Assessment: 43 year old male with history of depression admitted for psychiatric treatment. Medicine consulted for evaluation of left elbow wound. S/P incision and drainage of left elbow 12/28/17. Plan: Left elbow cellulitis Ortho Consulted- no acute intervention required ID consulted- Dr. Aguilera- recommendations are to repeat blood cx and discontinue meropenem if negative, pending MRI results. 12/28/17 MRI- Limited study as the patient could not tolerate gadolinium. Extensive motion artifact. 1. At the level of the olecranon bursa, there is a 1.4 x.4 x 5.7 centimeter lobulated heterogeneous increased STIR signal intensity collection. This is suggestive for an underlying olecranon bursitis with superimposed acute inflammatory and or infectious changes not excluded. Please note no contrast was given on this study, markedly limiting evaluation for abs cess formation. Prominent reticulation and edema within the adjacent subcutaneous soft tissues. No gross signal abnormality within the adjacent olecranon to suggest an acute osteomyelitis. 2. Heterogeneity of the visualized marrow within the proximal radius with patchy decreased T1 signal suggestive for hematopoietic marrow reconversion. 3. Small elbow joint effusion. Repeat MRI could not completed as patient was unable to lie still Afebrile, no leukocytosis noted Clindamycin 600mg IV daily [facility]; Bacitracin 1gm top q6h prn; Florastor 250 mg po daily Wound cx positive for MRSA History of depression with psychotic features Psych Consulted- Dr. Owusu- recommendations as below Patient currently denies suicidal or homicidal thoughts with no auditory or visual hallucinations. Ability 15mg PO Wellbutrin 150mg PO daily Haldol 5mg PO Q4 PRN Atarax 50mg PO Q6 PRN Trazodone 150mg PO HS PRN PPX DVT ppx- SCDs GI ppx- Florastor Disposition: As per ID patient should receive IV abx until Thursday and then can be discharged home.
--- NOTE | 2018-01-06 19:38 | CP.PCM.PN ---
Subjective - Date & Time of Evaluation Date of Evaluation: 01/06/18 Time of Evaluation: 08:00 - Subjective Subjective: comfortable nad Objective - Vital Signs/Intake and Output Vital Signs (last 24 hours): Temp Pulse Resp BP Pulse Ox 98.6 F 84 20 92/59 L 97 01/06/18 16:00 01/06/18 16:00 01/06/18 16:00 01/06/18 16:00 01/06/18 16:00 Intake and Output: 01/06/18 01/07/18 18:59 06:59 Intake Total 600 Balance 600 - Medications Medications: Current Medications Acetaminophen (Tylenol 325mg Tab) 650 mg PO Q6 PRN PRN Reason: Pain, moderate (4-7) Last Admin: 01/06/18 17:51 Dose: 650 mg Aripiprazole (Abilify) 15 mg PO DAILY [facility] Last Admin: 01/06/18 11:27 Dose: 15 mg Bacitracin (Bacitracin) 1 gm TOP Q6H PRN PRN Reason: Abrasion Last Admin: 12/24/17 18:30 Dose: 1 gm Bupropion HCl (Wellbutrin) 150 mg PO DAILY [facility] Last Admin: 01/06/18 10:46 Dose: 150 mg Emollient Ointment (Vaseline Oint) 5 gm TOP Q4H PRN PRN Reason: Dry skin Last Admin: 01/01/18 12:15 Dose: 5 gm Folic Acid (Folic Acid) 1 mg PO DAILY [facility] Last Admin: 01/06/18 10:45 Dose: 1 mg Gabapentin (Neurontin) 300 mg PO BID [facility] Last Admin: 01/06/18 17:49 Dose: 300 mg Haloperidol (Haldol) 5 mg PO Q4 PRN PRN Reason: Agitation Hydroxyzine HCl (Atarax) 50 mg PO Q6 PRN PRN Reason: Anxiety Clindamycin Phosphate 600 mg/ (Sodium Chloride) 54 mls @ 100 mls/hr IVPB Q8H [facility]; Protocol Last Admin: 01/06/18 14:13 Dose: 100 mls/hr Multivitamins (Hexavitamin) 1 tab PO DAILY [facility] Last Admin: 01/06/18 10:45 Dose: 1 tab Nicotine (Nicoderm Cq) 1 patch TD DAILY [facility] Last Admin: 01/06/18 10:45 Dose: 1 patch Saccharomyces Boulardii (Florastor) 250 mg PO BID [facility] Last Admin: 01/06/18 17:49 Dose: 250 mg Thiamine HCl (Vitamin B1 Tab) 100 mg PO DAILY [facility] Last Admin: 01/06/18 10:45 Dose: 100 mg Trazodone HCl (Desyrel) 150 mg PO HS PRN PRN Reason: Insomnia Last Admin: 01/05/18 22:44 Dose: 150 mg Vitamin A (Vitamin A & D Oint Ud Foilpak) 1 ea TOP Q8 PRN PRN Reason: Dry skin Last Admin: 01/05/18 09:25 Dose: 1 ea - Labs Labs: 01/06/18 07:36 01/06/18 07:36 PT 12.0 SECONDS (9.7-12.2) 12/28/17 11:56 INR 1.1 12/28/17 11:56 APTT 36 SECONDS (21-34) H 12/28/17 11:56 - Constitutional Appears: Non-toxic, Chronically Ill - Head Exam Head Exam: NORMOCEPHALIC - Eye Exam Eye Exam: absent: Scleral icterus - ENT Exam ENT Exam: Mucous Membranes Dry - Respiratory Exam Respiratory Exam: Decreased Breath Sounds - Cardiovascular Exam Cardiovascular Exam: REGULAR RHYTHM - GI/Abdominal Exam GI & Abdominal Exam: Distended, Soft - Rectal Exam Rectal Exam: Deferred - Exam Exam: NORMAL INSPECTION - Extremities Exam Extremities Exam: absent: Pedal Edema - Back Exam Back Exam: absent: CVA tenderness (L), CVA tenderness (R) Assessment and Plan - Assessment and Plan (Free Text) Assessment: cont iv clinda
[2018-01-07 06:58] LABS: HEMOGLOBIN 11.6 g/dL (12.0-18.0); MEAN CELL VOLUME 82.3 fL (80.0-94.0); MEAN CORPUSCULAR HEMOGLOBIN 27.8 pg (27.0-31.0); MEAN CORPUSCULAR HGB CONC 33.8 g/dL (33.0-37.0); MEAN PLATELET VOLUME 7.5 fL (7.2-11.7); RBC 4.15 Mil/uL (4.40-5.90); WHITE BLOOD COUNT 3.8 K/uL (4.8-10.8)
[2018-01-07 07:17] LABS: ALB/GLOB RATIO 1.1 (1.0-2.1); ALBUMIN 3.2 g/dL (3.5-5.0); ALT/SGPT 39 U/L (21-72); AST/SGOT 42 U/L (17-59); BLOOD UREA NITROGEN 12 mg/dL (9-20); CALCIUM 8.5 mg/dl (8.6-10.4); GFR NON-AFRICAN AMERICAN > 60
--- NOTE | 2018-01-07 07:37 | CP.PCM.PN ---
Objective - Vital Signs/Intake and Output Vital Signs (last 24 hours): Temp Pulse Resp BP Pulse Ox 98.8 F 73 16 99/63 L 98 01/06/18 23:00 01/06/18 23:00 01/06/18 23:00 01/06/18 23:00 01/06/18 23:00 Intake and Output: 01/07/18 01/07/18 06:59 18:59 Intake Total 410 Output Total 750 Balance -340 - Medications Medications: Current Medications Acetaminophen (Tylenol 325mg Tab) 650 mg PO Q6 PRN PRN Reason: Pain, moderate (4-7) Last Admin: 01/06/18 17:51 Dose: 650 mg Aripiprazole (Abilify) 15 mg PO DAILY [facility] Last Admin: 01/06/18 11:27 Dose: 15 mg Bacitracin (Bacitracin) 1 gm TOP Q6H PRN PRN Reason: Abrasion Last Admin: 12/24/17 18:30 Dose: 1 gm Bupropion HCl (Wellbutrin) 150 mg PO DAILY [facility] Last Admin: 01/06/18 10:46 Dose: 150 mg Emollient Ointment (Vaseline Oint) 5 gm TOP Q4H PRN PRN Reason: Dry skin Last Admin: 01/01/18 12:15 Dose: 5 gm Folic Acid (Folic Acid) 1 mg PO DAILY [facility] Last Admin: 01/06/18 10:45 Dose: 1 mg Gabapentin (Neurontin) 300 mg PO BID [facility] Last Admin: 01/06/18 17:49 Dose: 300 mg Haloperidol (Haldol) 5 mg PO Q4 PRN PRN Reason: Agitation Hydroxyzine HCl (Atarax) 50 mg PO Q6 PRN PRN Reason: Anxiety Clindamycin Phosphate 600 mg/ (Sodium Chloride) 54 mls @ 100 mls/hr IVPB Q8H [facility]; Protocol Last Admin: 01/07/18 05:08 Dose: 100 mls/hr Multivitamins (Hexavitamin) 1 tab PO DAILY [facility] Last Admin: 01/06/18 10:45 Dose: 1 tab Nicotine (Nicoderm Cq) 1 patch TD DAILY [facility] Last Admin: 01/06/18 10:45 Dose: 1 patch Saccharomyces Boulardii (Florastor) 250 mg PO BID [facility] Last Admin: 01/06/18 17:49 Dose: 250 mg Thiamine HCl (Vitamin B1 Tab) 100 mg PO DAILY [facility] Last Admin: 01/06/18 10:45 Dose: 100 mg Trazodone HCl (Desyrel) 150 mg PO HS PRN PRN Reason: Insomnia Last Admin: 01/06/18 21:49 Dose: 150 mg Vitamin A (Vitamin A & D Oint Ud Foilpak) 1 ea TOP Q8 PRN PRN Reason: Dry skin Last Admin: 01/05/18 09:25 Dose: 1 ea - Labs Labs: 01/07/18 06:48 01/07/18 06:48 PT 12.0 SECONDS (9.7-12.2) 12/28/17 11:56 INR 1.1 12/28/17 11:56 APTT 36 SECONDS (21-34) H 12/28/17 11:56
--- NOTE | 2018-01-07 09:07 | CP.PCM.PN ---
<Mariama Rosas - Last Filed: 01/07/18 09:07> Subjective - Date & Time of Evaluation Date of Evaluation: 01/07/18 Time of Evaluation: 07:00 - Subjective Subjective: GENERAL SURGERY PROGRESS NOTE FOR DR. LLOYD Patient seen and examined at bedside Pt reports pain is better in the arm. Pt denies fever or chills. Tolerating diet. Objective - Vital Signs/Intake and Output Vital Signs (last 24 hours): Temp Pulse Resp BP Pulse Ox 98.1 F 87 20 114/70 96 01/07/18 08:10 01/07/18 08:10 01/07/18 08:10 01/07/18 08:10 01/07/18 08:10 Intake and Output: 01/07/18 01/07/18 06:59 18:59 Intake Total 410 Output Total 750 Balance -340 - Medications Medications: Current Medications Acetaminophen (Tylenol 325mg Tab) 650 mg PO Q6 PRN PRN Reason: Pain, moderate (4-7) Last Admin: 01/06/18 17:51 Dose: 650 mg Aripiprazole (Abilify) 15 mg PO DAILY [facility] Last Admin: 01/06/18 11:27 Dose: 15 mg Bacitracin (Bacitracin) 1 gm TOP Q6H PRN PRN Reason: Abrasion Last Admin: 12/24/17 18:30 Dose: 1 gm Bupropion HCl (Wellbutrin) 150 mg PO DAILY [facility] Last Admin: 01/06/18 10:46 Dose: 150 mg Emollient Ointment (Vaseline Oint) 5 gm TOP Q4H PRN PRN Reason: Dry skin Last Admin: 01/01/18 12:15 Dose: 5 gm Folic Acid (Folic Acid) 1 mg PO DAILY [facility] Last Admin: 01/06/18 10:45 Dose: 1 mg Gabapentin (Neurontin) 300 mg PO BID [facility] Last Admin: 01/06/18 17:49 Dose: 300 mg Haloperidol (Haldol) 5 mg PO Q4 PRN PRN Reason: Agitation Hydroxyzine HCl (Atarax) 50 mg PO Q6 PRN PRN Reason: Anxiety Clindamycin Phosphate 600 mg/ (Sodium Chloride) 54 mls @ 100 mls/hr IVPB Q8H [facility]; Protocol Last Admin: 01/07/18 05:08 Dose: 100 mls/hr Multivitamins (Hexavitamin) 1 tab PO DAILY [facility] Last Admin: 01/06/18 10:45 Dose: 1 tab Nicotine (Nicoderm Cq) 1 patch TD DAILY [facility] Last Admin: 01/06/18 10:45 Dose: 1 patch Saccharomyces Boulardii (Florastor) 250 mg PO BID [facility] Last Admin: 01/06/18 17:49 Dose: 250 mg Thiamine HCl (Vitamin B1 Tab) 100 mg PO DAILY [facility] Last Admin: 01/06/18 10:45 Dose: 100 mg Trazodone HCl (Desyrel) 150 mg PO HS PRN PRN Reason: Insomnia Last Admin: 01/06/18 21:49 Dose: 150 mg Vitamin A (Vitamin A & D Oint Ud Foilpak) 1 ea TOP Q8 PRN PRN Reason: Dry skin Last Admin: 01/05/18 09:25 Dose: 1 ea - Labs Labs: 01/07/18 06:48 01/07/18 06:48 PT 12.0 SECONDS (9.7-12.2) 12/28/17 11:56 INR 1.1 12/28/17 11:56 APTT 36 SECONDS (21-34) H 12/28/17 11:56 - Constitutional Appears: Non-toxic, No Acute Distress - Head Exam Head Exam: ATRAUMATIC, NORMAL INSPECTION - Eye Exam Eye Exam: EOMI, Normal appearance - Respiratory Exam Respiratory Exam: NORMAL BREATHING PATTERN. absent: Respiratory Distress - Cardiovascular Exam Cardiovascular Exam: +S1, +S2 - Extremities Exam Additional comments: Left elbow wound healing well, less erythema, no drainage, no fluctuance - Neurological Exam Neurological Exam: Alert, Awake, Oriented x3 - Psychiatric Exam Psychiatric exam: Normal Affect, Normal Mood - Skin Skin Exam: Dry, Normal Color, Warm Assessment and Plan - Assessment and Plan (Free Text) Assessment: 47M POD#10 s/p incision and drainage of left elbow abscess Plan: - Continue daily dressing care - Continue in med/surg until wound has improved further - Repeat wound cx taken yesterday: gram stain = no organisms, cx to follow - ESR and CRP ordered as per ortho recs - Continue IV abx per ID - Left elbow MRI to rule out osteo. Dose of morphine to be given prior to imaging for pt comfort Discussed with Dr. Gabino Rosas PGY-4 <Nic Lloyd - Last Filed: 01/10/18 18:50> Objective - Vital Signs/Intake and Output Vital Signs (last 24 hours): Temp Pulse Resp BP Pulse Ox 97.9 F 75 20 100/64 95 01/10/18 17:28 01/10/18 17:28 01/10/18 17:28 01/10/18 17:28 01/10/18 17:28 Intake and Output: 01/10/18 01/10/18 06:59 18:59 Intake Total 400 Balance 400 - Medications Medications: Current Medications Acetaminophen (Tylenol 325mg Tab) 650 mg PO Q6 PRN PRN Reason: Pain, moderate (4-7) Last Admin: 01/10/18 18:09 Dose: 650 mg Aripiprazole (Abilify) 15 mg PO DAILY [facility] Last Admin: 01/10/18 09:55 Dose: 15 mg Bacitracin (Bacitracin) 1 gm TOP Q6H PRN PRN Reason: Abrasion Last Admin: 12/24/17 18:30 Dose: 1 gm Bupropion HCl (Wellbutrin) 150 mg PO DAILY [facility] Last Admin: 01/10/18 09:56 Dose: 150 mg Emollient Ointment (Vaseline Oint) 5 gm TOP Q4H PRN PRN Reason: Dry skin Last Admin: 01/01/18 12:15 Dose: 5 gm Folic Acid (Folic Acid) 1 mg PO DAILY [facility] Last Admin: 01/10/18 09:52 Dose: 1 mg Gabapentin (Neurontin) 300 mg PO BID [facility] Last Admin: 01/10/18 17:40 Dose: 300 mg Haloperidol (Haldol) 5 mg PO Q4 PRN PRN Reason: Agitation Heparin Sodium (Porcine) (Heparin) 5,000 units SC Q8H [facility] Last Admin: 01/10/18 05:31 Dose: 5,000 units Hydroxyzine HCl (Atarax) 50 mg PO Q6 PRN PRN Reason: Anxiety Clindamycin Phosphate 600 mg/ (Sodium Chloride) 54 mls @ 100 mls/hr IVPB Q8H [facility]; Protocol Last Admin: 01/10/18 13:12 Dose: 100 mls/hr Midazolam HCl (Versed Inj) 2.5 mg IVP ONCE PRN PRN Reason: Anxiety Last Admin: 01/08/18 14:02 Dose: 2.5 mg Multivitamins (Hexavitamin) 1 tab PO DAILY [facility] Last Admin: 01/10/18 09:52 Dose: 1 tab Nicotine (Nicoderm Cq) 1 patch TD DAILY [facility] Last Admin: 01/10/18 09:52 Dose: 1 patch Saccharomyces Boulardii (Florastor) 250 mg PO BID [facility] Last Admin: 01/10/18 17:40 Dose: 250 mg Thiamine HCl (Vitamin B1 Tab) 100 mg PO DAILY [facility] Last Admin: 01/10/18 09:52 Dose: 100 mg Trazodone HCl (Desyrel) 150 mg PO HS PRN PRN Reason: Insomnia Last Admin: 01/09/18 22:28 Dose: 150 mg Vitamin A (Vitamin A & D Oint Ud Foilpak) 1 ea TOP Q8 PRN PRN Reason: Dry skin Last Admin: 01/05/18 09:25 Dose: 1 ea - Labs Labs: 01/10/18 07:25 01/10/18 07:25 PT 12.0 SECONDS (9.7-12.2) 12/28/17 11:56 INR 1.1 12/28/17 11:56 APTT 36 SECONDS (21-34) H 12/28/17 11:56 Attending/Attestation - Attestation I have personally seen and examined this patient.: Yes I have fully participated in the care of the patient.: Yes I have reviewed all pertinent clinical information, including history, physical exam and plan: Yes Notes (Text): Pt was seen and examined at bedside Agree with above note and assessment Orthopedic input appreciated Local wound care C.w current mx Plan d.w pt in detail Risk and benefit explained in detail.
[2018-01-07] MEDS: Saccharomyces Boulardi 250 mg Cap PO SCH ×2 (11:19→17:24)
[2018-01-07] MEDS: Multiple Vitamins Tab PO SCH (11:19)
--- NOTE | 2018-01-07 11:35 | CP.PCM.PN ---
Subjective - Date & Time of Evaluation Date of Evaluation: 01/07/18 Time of Evaluation: 11:31 - Subjective Subjective: PGY-1 Medicine Progress note for Dr. Mahmood's service Patient seen and examined at bedside. Patient reports mild pain at site of incision and drainage on left elbow. Patient denies fevers, chills, chest pain, shortness of breath, n/v, constipation or diarrhea, dysuria. Objective - Vital Signs/Intake and Output Vital Signs (last 24 hours): Temp Pulse Resp BP Pulse Ox 98.1 F 87 20 114/70 96 01/07/18 08:10 01/07/18 08:10 01/07/18 08:10 01/07/18 08:10 01/07/18 08:10 Intake and Output: 01/07/18 01/07/18 06:59 18:59 Intake Total 410 Output Total 750 Balance -340 - Medications Medications: Current Medications Acetaminophen (Tylenol 325mg Tab) 650 mg PO Q6 PRN PRN Reason: Pain, moderate (4-7) Last Admin: 01/06/18 17:51 Dose: 650 mg Aripiprazole (Abilify) 15 mg PO DAILY [facility] Last Admin: 01/07/18 11:22 Dose: 15 mg Bacitracin (Bacitracin) 1 gm TOP Q6H PRN PRN Reason: Abrasion Last Admin: 12/24/17 18:30 Dose: 1 gm Bupropion HCl (Wellbutrin) 150 mg PO DAILY [facility] Last Admin: 01/07/18 11:21 Dose: 150 mg Emollient Ointment (Vaseline Oint) 5 gm TOP Q4H PRN PRN Reason: Dry skin Last Admin: 01/01/18 12:15 Dose: 5 gm Folic Acid (Folic Acid) 1 mg PO DAILY [facility] Last Admin: 01/07/18 11:19 Dose: 1 mg Gabapentin (Neurontin) 300 mg PO BID [facility] Last Admin: 01/07/18 11:19 Dose: 300 mg Haloperidol (Haldol) 5 mg PO Q4 PRN PRN Reason: Agitation Hydroxyzine HCl (Atarax) 50 mg PO Q6 PRN PRN Reason: Anxiety Clindamycin Phosphate 600 mg/ (Sodium Chloride) 54 mls @ 100 mls/hr IVPB Q8H [facility]; Protocol Last Admin: 01/07/18 05:08 Dose: 100 mls/hr Multivitamins (Hexavitamin) 1 tab PO DAILY [facility] Last Admin: 01/07/18 11:19 Dose: 1 tab Nicotine (Nicoderm Cq) 1 patch TD DAILY [facility] Last Admin: 01/07/18 11:20 Dose: 1 patch Saccharomyces Boulardii (Florastor) 250 mg PO BID [facility] Last Admin: 01/07/18 11:19 Dose: 250 mg Thiamine HCl (Vitamin B1 Tab) 100 mg PO DAILY [facility] Last Admin: 01/07/18 11:20 Dose: 100 mg Trazodone HCl (Desyrel) 150 mg PO HS PRN PRN Reason: Insomnia Last Admin: 01/06/18 21:49 Dose: 150 mg Vitamin A (Vitamin A & D Oint Ud Foilpak) 1 ea TOP Q8 PRN PRN Reason: Dry skin Last Admin: 01/05/18 09:25 Dose: 1 ea - Labs Labs: 01/07/18 06:48 01/07/18 06:48 PT 12.0 SECONDS (9.7-12.2) 12/28/17 11:56 INR 1.1 12/28/17 11:56 APTT 36 SECONDS (21-34) H 12/28/17 11:56 - Additional Findings Additional findings: - Constitutional Appears: Non-toxic, No Acute Distress - Head Exam Head Exam: NORMAL INSPECTION, NORMOCEPHALIC - Eye Exam Eye Exam: EOMI, Normal appearance. absent: Nystagmus, Scleral icterus - ENT Exam ENT Exam: Mucous Membranes Moist - Respiratory Exam Respiratory Exam: Clear to Ausculation Bilateral, NORMAL BREATHING PATTERN. absent: Decreased Breath Sounds, Rales, Rhonchi, Wheezes - Cardiovascular Exam Cardiovascular Exam: REGULAR RHYTHM, +S1, +S2. absent: Bradycardia, Tachycardia - GI/Abdominal Exam GI & Abdominal Exam: Soft, Normal Bowel Sounds. absent: Distended, Firm, Guarding, Rigid, Tenderness - Extremities Exam Extremities Exam: Normal Inspection. absent: Calf Tenderness, Pedal Edema Additional comments: Elbow is covered with a 4 x 4 dressing today. Area is not erethematous, no active drainage, no tenderness with palpation - Neurological Exam Neurological Exam: Alert, Awake, Oriented x3 - Psychiatric Exam Psychiatric exam: Normal Affect, Normal Mood - Skin Skin Exam: Intact, Normal Color Assessment and Plan - Assessment and Plan (Free Text) Assessment: 43 year old male with history of depression admitted for psychiatric treatment. Medicine consulted for evaluation of left elbow wound. S/P incision and drainage of left elbow 12/28/17. Plan: Left elbow cellulitis Ortho Consulted- no acute intervention required ID consulted- Dr. Aguilera- recommendations are to repeat blood cx and discontinue meropenem if negative, pending MRI results. 12/28/17 MRI- Limited study as the patient could not tolerate gadolinium. Extensive motion artifact. 1. At the level of the olecranon bursa, there is a 1.4 x.4 x 5.7 centimeter lobulated heterogeneous increased STIR signal intensity collection. This is suggestive for an underlying olecranon bursitis with superimposed acute inflammatory and or infectious changes not excluded. Please note no contrast was given on this study, markedly limiting evaluation for abscess formation. Prominent reticulation and edema within the adjacent subcutaneous soft tissues. No gross signal abnormality within the adjacent olecranon to suggest an acute osteomyelitis. 2. Heterogeneity of the visualized marrow within the proximal radius with patchy decreased T1 signal suggestive for hematopoietic marrow reconversion. 3. Small elbow joint effusion. Repeat MRI scheduled with dose of morphine prior to make patient comfortable as per surgery Afebrile, no leukocytosis noted Clindamycin 600mg IV daily rachana; Bacitracin 1gm top q6h prn; Florastor 250 mg po daily Wound cx positive for MRSA History of depression with psychotic features Psych Consulted- Dr. Owusu- recommendations as below Patient currently denies suicidal or homicidal thoughts with no auditory or visual hallucinations. Ability 15mg PO Wellbutrin 150mg PO daily Haldol 5mg PO Q4 PRN Atarax 50mg PO Q6 PRN Trazodone 150mg PO HS PRN PPX DVT ppx- SCDs GI ppx- Florastor Disposition: Repeat MRI prior to discharge planning
[2018-01-08 07:26] LABS: HEMOGLOBIN 11.7 g/dL (12.0-18.0); MEAN CELL VOLUME 83.6 fL (80.0-94.0); MEAN CORPUSCULAR HEMOGLOBIN 27.2 pg (27.0-31.0); MEAN CORPUSCULAR HGB CONC 32.6 g/dL (33.0-37.0); MEAN PLATELET VOLUME 7.5 fL (7.2-11.7); RBC 4.31 Mil/uL (4.40-5.90); RED CELL DISTRIBUTION WIDTH 18.7 % (11.5-14.5); WHITE BLOOD COUNT 3.4 K/uL (4.8-10.8)
--- NOTE | 2018-01-08 07:38 | CP.PCM.PN ---
<Minor Finn - Last Filed: 01/08/18 15:21> Subjective - Date & Time of Evaluation Date of Evaluation: 01/08/18 Time of Evaluation: 09:30 - Subjective Subjective: PGY 1 Medicne progress note for Hospitalist Dr. Mahmood. Patient seen and examined at bedside. No overnight events reported. Pt lying in bed comfortably, no acute distress. Patient states he has some left elbow tenderness, with increase pain with extension, but overall pain well controlled. Patient has no complaints, denies chest pain, SOB, abdominal pain, N/V, fevers, chills, dysura, hematura. Objective - Vital Signs/Intake and Output Vital Signs (last 24 hours): Temp Pulse Resp BP Pulse Ox 98.2 F 93 H 20 100/65 98 01/08/18 00:00 01/08/18 00:00 01/08/18 00:00 01/08/18 00:00 01/08/18 00:00 - Medications Medications: Current Medications Acetaminophen (Tylenol 325mg Tab) 650 mg PO Q6 PRN PRN Reason: Pain, moderate (4-7) Last Admin: 01/06/18 17:51 Dose: 650 mg Aripiprazole (Abilify) 15 mg PO DAILY [facility] Last Admin: 01/07/18 11:22 Dose: 15 mg Bacitracin (Bacitracin) 1 gm TOP Q6H PRN PRN Reason: Abrasion Last Admin: 12/24/17 18:30 Dose: 1 gm Bupropion HCl (Wellbutrin) 150 mg PO DAILY [facility] Last Admin: 01/07/18 11:21 Dose: 150 mg Emollient Ointment (Vaseline Oint) 5 gm TOP Q4H PRN PRN Reason: Dry skin Last Admin: 01/01/18 12:15 Dose: 5 gm Folic Acid (Folic Acid) 1 mg PO DAILY [facility] Last Admin: 01/07/18 11:19 Dose: 1 mg Gabapentin (Neurontin) 300 mg PO BID [facility] Last Admin: 01/07/18 17:24 Dose: 300 mg Haloperidol (Haldol) 5 mg PO Q4 PRN PRN Reason: Agitation Hydroxyzine HCl (Atarax) 50 mg PO Q6 PRN PRN Reason: Anxiety Clindamycin Phosphate 600 mg/ (Sodium Chloride) 54 mls @ 100 mls/hr IVPB Q8H [facility]; Protocol Last Admin: 01/08/18 05:39 Dose: 100 mls/hr Multivitamins (Hexavitamin) 1 tab PO DAILY [facility] Last Admin: 01/07/18 11:19 Dose: 1 tab Nicotine (Nicoderm Cq) 1 patch TD DAILY [facility] Last Admin: 01/07/18 11:20 Dose: 1 patch Saccharomyces Boulardii (Florastor) 250 mg PO BID [facility] Last Admin: 01/07/18 17:24 Dose: 250 mg Thiamine HCl (Vitamin B1 Tab) 100 mg PO DAILY [facility] Last Admin: 01/07/18 11:20 Dose: 100 mg Trazodone HCl (Desyrel) 150 mg PO HS PRN PRN Reason: Insomnia Last Admin: 01/07/18 22:31 Dose: 150 mg Vitamin A (Vitamin A & D Oint Ud Foilpak) 1 ea TOP Q8 PRN PRN Reason: Dry skin Last Admin: 01/05/18 09:25 Dose: 1 ea - Labs Labs: 01/08/18 07:15 01/07/18 06:48 PT 12.0 SECONDS (9.7-12.2) 12/28/17 11:56 INR 1.1 12/28/17 11:56 APTT 36 SECONDS (21-34) H 12/28/17 11:56 - Constitutional Appears: Non-toxic, No Acute Distress - Head Exam Head Exam: ATRAUMATIC, NORMAL INSPECTION, NORMOCEPHALIC - Eye Exam Eye Exam: Normal appearance - Respiratory Exam Respiratory Exam: Clear to Ausculation Bilateral, NORMAL BREATHING PATTERN. absent: Rales, Rhonchi, Wheezes - Cardiovascular Exam Cardiovascular Exam: +S1, +S2 - Extremities Exam Extremities Exam: Full ROM. absent: Calf Tenderness, Pedal Edema Additional comments: Elbow is covered with a 4 x 4 dressing today. Area is not erethematous, no active drainage, no tenderness with palpation Currently managed by surgery - Back Exam Back Exam: absent: CVA tenderness (L), CVA tenderness (R) - Neurological Exam Neurological Exam: Alert, Awake, Oriented x3 - Psychiatric Exam Psychiatric exam: Normal Affect, Normal Mood - Skin Skin Exam: Dry, Intact, Normal Color, Warm Assessment and Plan - Assessment and Plan (Free Text) Assessment: 43 year old male with history of depression admitted for psychiatric treatment. Medicine consulted for evaluation of left elbow wound. S/P incision and drainage of left elbow 12/28/17. Plan: Left elbow cellulitis 12/28/17 MRI- Limited study as the patient could not tolerate gadolinium. Extensive motion artifact. 1. At the level of the olecranon bursa, there is a 1.4 x.4 x 5.7 centimeter lobulated heterogeneous increased STIR signal intensity collection. This is suggestive for an underlying olecranon bursitis with superimposed acute inflammatory and or infectious changes not excluded. Please note no contrast was given on this study, markedly limiting evaluation for abscess formation. Prominent reticulation and edema within the adjacent subcutaneous soft tissues. No gross signal abnormality within the adjacent olecranon to suggest an acute osteomyelitis. 2. Heterogeneity of the visualized marrow within the proximal radius with patchy decreased T1 signal suggestive for hematopoietic marrow reconversion. 3. Small elbow joint effusion. Ortho Consulted- no acute intervention required ID consulted- Dr. Aguilera- recommendations are clinda, d/c meropenum / to negative cultures Repeat MRI scheduled with dose of morphine prior to make patient comfortable as per surgery Afebrile, no leukocytosis noted Clindamycin 600mg IV daily rachana; Bacitracin 1gm top q6h prn; Florastor 250 mg po daily Initial Wound cx positive for MRSA; repeat negative History of depression with psychotic features Psych Consulted- Dr. Owusu- recommendations as below Patient currently denies suicidal or homicidal thoughts with no auditory or visual hallucinations. Ability 15mg PO Wellbutrin 150mg PO daily Haldol 5mg PO Q4 PRN Atarax 50mg PO Q6 PRN Trazodone 150mg PO HS PRN PPX DVT ppx- SCDs GI ppx- Florastor Disposition: Repeat MRI prior to discharge planning D/w Dr. Timoteo Finn, PGY1 <Hannah Mahmood - Last Filed: 01/08/18 15:47> Objective - Vital Signs/Intake and Output Vital Signs (last 24 hours): Temp Pulse Resp BP Pulse Ox 98.7 F 84 20 102/62 97 01/08/18 08:26 01/08/18 08:26 01/08/18 08:26 01/08/18 08:26 01/08/18 08:26 Intake and Output: 01/08/18 01/08/18 06:59 18:59 Intake Total 300 Balance 300 - Medications Medications: Current Medications Acetaminophen (Tylenol 325mg Tab) 650 mg PO Q6 PRN PRN Reason: Pain, moderate (4-7) Last Admin: 01/06/18 17:51 Dose: 650 mg Aripiprazole (Abilify) 15 mg PO DAILY [facility] Last Admin: 01/08/18 11:56 Dose: 15 mg Bacitracin (Bacitracin) 1 gm TOP Q6H PRN PRN Reason: Abrasion Last Admin: 12/24/17 18:30 Dose: 1 gm Bupropion HCl (Wellbutrin) 150 mg PO DAILY [facility] Last Admin: 01/08/18 10:33 Dose: 150 mg Emollient Ointment (Vaseline Oint) 5 gm TOP Q4H PRN PRN Reason: Dry skin Last Admin: 01/01/18 12:15 Dose: 5 gm Folic Acid (Folic Acid) 1 mg PO DAILY [facility] Last Admin: 01/08/18 12:56 Dose: 1 mg Gabapentin (Neurontin) 300 mg PO BID [facility] Last Admin: 01/08/18 10:30 Dose: 300 mg Haloperidol (Haldol) 5 mg PO Q4 PRN PRN Reason: Agitation Hydroxyzine HCl (Atarax) 50 mg PO Q6 PRN PRN Reason: Anxiety Clindamycin Phosphate 600 mg/ (Sodium Chloride) 54 mls @ 100 mls/hr IVPB Q8H [facility]; Protocol Last Admin: 01/08/18 14:04 Dose: 100 mls/hr Midazolam HCl (Versed Inj) 2.5 mg IVP ONCE PRN PRN Reason: Anxiety Last Admin: 01/08/18 14:02 Dose: 2.5 mg Multivitamins (Hexavitamin) 1 tab PO DAILY [facility] Last Admin: 01/08/18 10:30 Dose: 1 tab Nicotine (Nicoderm Cq) 1 patch TD DAILY [facility] Last Admin: 01/08/18 10:31 Dose: 1 patch Saccharomyces Boulardii (Florastor) 250 mg PO BID [facility] Last Admin: 01/08/18 10:30 Dose: 250 mg Thiamine HCl (Vitamin B1 Tab) 100 mg PO DAILY [facility] Last Admin: 01/08/18 10:30 Dose: 100 mg Trazodone HCl (Desyrel) 150 mg PO HS PRN PRN Reason: Insomnia Last Admin: 01/07/18 22:31 Dose: 150 mg Vitamin A (Vitamin A & D Oint Ud Foilpak) 1 ea TOP Q8 PRN PRN Reason: Dry skin Last Admin: 01/05/18 09:25 Dose: 1 ea - Labs Labs: 01/08/18 07:15 01/08/18 07:15 PT 12.0 SECONDS (9.7-12.2) 12/28/17 11:56 INR 1.1 12/28/17 11:56 APTT 36 SECONDS (21-34) H 12/28/17 11:56 Attending/Attestation - Attestation I have personally seen and examined this patient.: Yes I have fully participated in the care of the patient.: Yes I have reviewed all pertinent clinical information, including history, physical exam and plan: Yes Notes (Text): Surgeon requested for repeat MRI with contrast continue Clindamycin follow MRI I agree with the resident documentation
[2018-01-08 07:49] LABS: ALT/SGPT 35 U/L (21-72); AST/SGOT 42 U/L (17-59); BLOOD UREA NITROGEN 14 mg/dL (9-20); CALCIUM 8.2 mg/dl (8.6-10.4); GFR NON-AFRICAN AMERICAN > 60
--- NOTE | 2018-01-08 09:14 | CP.PCM.PN ---
<Sasha Valdovinos - Last Filed: 01/08/18 09:06> Subjective - Date & Time of Evaluation Date of Evaluation: 01/08/18 Time of Evaluation: 09:08 - Subjective Subjective: Surgery: Dr. Lloyd Pt seen and examined. No acute overnight events. States he feels ok and pain is well controlled at this time. Pt is able to move his arm and has full range of motion at the elbow. Denies fevers/chills. Objective - Vital Signs/Intake and Output Vital Signs (last 24 hours): Temp Pulse Resp BP Pulse Ox 98.7 F 84 20 102/62 97 01/08/18 08:26 01/08/18 08:26 01/08/18 08:26 01/08/18 08:26 01/08/18 08:26 Intake and Output: 01/08/18 01/08/18 06:59 18:59 Intake Total 300 Balance 300 - Medications Medications: Current Medications Acetaminophen (Tylenol 325mg Tab) 650 mg PO Q6 PRN PRN Reason: Pain, moderate (4-7) Last Admin: 01/06/18 17:51 Dose: 650 mg Aripiprazole (Abilify) 15 mg PO DAILY [facility] Last Admin: 01/07/18 11:22 Dose: 15 mg Bacitracin (Bacitracin) 1 gm TOP Q6H PRN PRN Reason: Abrasion Last Admin: 12/24/17 18:30 Dose: 1 gm Bupropion HCl (Wellbutrin) 150 mg PO DAILY [facility] Last Admin: 01/07/18 11:21 Dose: 150 mg Emollient Ointment (Vaseline Oint) 5 gm TOP Q4H PRN PRN Reason: Dry skin Last Admin: 01/01/18 12:15 Dose: 5 gm Folic Acid (Folic Acid) 1 mg PO DAILY [facility] Last Admin: 01/07/18 11:19 Dose: 1 mg Gabapentin (Neurontin) 300 mg PO BID [facility] Last Admin: 01/07/18 17:24 Dose: 300 mg Haloperidol (Haldol) 5 mg PO Q4 PRN PRN Reason: Agitation Hydroxyzine HCl (Atarax) 50 mg PO Q6 PRN PRN Reason: Anxiety Clindamycin Phosphate 600 mg/ (Sodium Chloride) 54 mls @ 100 mls/hr IVPB Q8H [facility]; Protocol Last Admin: 01/08/18 05:39 Dose: 100 mls/hr Multivitamins (Hexavitamin) 1 tab PO DAILY [facility] Last Admin: 01/07/18 11:19 Dose: 1 tab Nicotine (Nicoderm Cq) 1 patch TD DAILY [facility] Last Admin: 01/07/18 11:20 Dose: 1 patch Saccharomyces Boulardii (Florastor) 250 mg PO BID [facility] Last Admin: 01/07/18 17:24 Dose: 250 mg Thiamine HCl (Vitamin B1 Tab) 100 mg PO DAILY [facility] Last Admin: 01/07/18 11:20 Dose: 100 mg Trazodone HCl (Desyrel) 150 mg PO HS PRN PRN Reason: Insomnia Last Admin: 01/07/18 22:31 Dose: 150 mg Vitamin A (Vitamin A & D Oint Ud Foilpak) 1 ea TOP Q8 PRN PRN Reason: Dry skin Last Admin: 01/05/18 09:25 Dose: 1 ea - Labs Labs: 01/08/18 07:15 01/08/18 07:15 PT 12.0 SECONDS (9.7-12.2) 12/28/17 11:56 INR 1.1 12/28/17 11:56 APTT 36 SECONDS (21-34) H 12/28/17 11:56 - Constitutional Appears: Well, No Acute Distress - Head Exam Head Exam: ATRAUMATIC, NORMOCEPHALIC - ENT Exam ENT Exam: Mucous Membranes Moist - Respiratory Exam Respiratory Exam: NORMAL BREATHING PATTERN - Cardiovascular Exam Cardiovascular Exam: RRR - GI/Abdominal Exam GI & Abdominal Exam: Soft - Extremities Exam Additional comments: left elbow with some erythema noted around I&D site that's now mostly closed, no drainage - Neurological Exam Neurological Exam: Alert, Awake, Oriented x3 - Skin Skin Exam: Dry, Warm Assessment and Plan - Assessment and Plan (Free Text) Assessment: 47M with L elbow abscess, s/p I&D; POD#11 Plan: - cont Clindamycin per ID recs - will try for MRI of the elbow today with pre-medication - d/w Dr. Gabino Valdovinos <Nic Lloyd - Last Filed: 01/10/18 18:51> Objective - Vital Signs/Intake and Output Vital Signs (last 24 hours): Temp Pulse Resp BP Pulse Ox 97.9 F 75 20 100/64 95 01/10/18 17:28 01/10/18 17:28 01/10/18 17:28 01/10/18 17:28 01/10/18 17:28 Intake and Output: 01/10/18 01/10/18 06:59 18:59 Intake Total 400 Balance 400 - Medications Medications: Current Medications Acetaminophen (Tylenol 325mg Tab) 650 mg PO Q6 PRN PRN Reason: Pain, moderate (4-7) Last Admin: 01/10/18 18:09 Dose: 650 mg Aripiprazole (Abilify) 15 mg PO DAILY [facility] Last Admin: 01/10/18 09:55 Dose: 15 mg Bacitracin (Bacitracin) 1 gm TOP Q6H PRN PRN Reason: Abrasion Last Admin: 12/24/17 18:30 Dose: 1 gm Bupropion HCl (Wellbutrin) 150 mg PO DAILY [facility] Last Admin: 01/10/18 09:56 Dose: 150 mg Emollient Ointment (Vaseline Oint) 5 gm TOP Q4H PRN PRN Reason: Dry skin Last Admin: 01/01/18 12:15 Dose: 5 gm Folic Acid (Folic Acid) 1 mg PO DAILY [facility] Last Admin: 01/10/18 09:52 Dose: 1 mg Gabapentin (Neurontin) 300 mg PO BID [facility] Last Admin: 01/10/18 17:40 Dose: 300 mg Haloperidol (Haldol) 5 mg PO Q4 PRN PRN Reason: Agitation Heparin Sodium (Porcine) (Heparin) 5,000 units SC Q8H [facility] Last Admin: 01/10/18 05:31 Dose: 5,000 units Hydroxyzine HCl (Atarax) 50 mg PO Q6 PRN PRN Reason: Anxiety Clindamycin Phosphate 600 mg/ (Sodium Chloride) 54 mls @ 100 mls/hr IVPB Q8H [facility]; Protocol Last Admin: 01/10/18 13:12 Dose: 100 mls/hr Midazolam HCl (Versed Inj) 2.5 mg IVP ONCE PRN PRN Reason: Anxiety Last Admin: 01/08/18 14:02 Dose: 2.5 mg Multivitamins (Hexavitamin) 1 tab PO DAILY [facility] Last Admin: 01/10/18 09:52 Dose: 1 tab Nicotine (Nicoderm Cq) 1 patch TD DAILY [facility] Last Admin: 01/10/18 09:52 Dose: 1 patch Saccharomyces Boulardii (Florastor) 250 mg PO BID [facility] Last Admin: 01/10/18 17:40 Dose: 250 mg Thiamine HCl (Vitamin B1 Tab) 100 mg PO DAILY [facility] Last Admin: 01/10/18 09:52 Dose: 100 mg Trazodone HCl (Desyrel) 150 mg PO HS PRN PRN Reason: Insomnia Last Admin: 01/09/18 22:28 Dose: 150 mg Vitamin A (Vitamin A & D Oint Ud Foilpak) 1 ea TOP Q8 PRN PRN Reason: Dry skin Last Admin: 01/05/18 09:25 Dose: 1 ea - Labs Labs: 01/10/18 07:25 01/10/18 07:25 PT 12.0 SECONDS (9.7-12.2) 12/28/17 11:56 INR 1.1 12/28/17 11:56 APTT 36 SECONDS (21-34) H 12/28/17 11:56 Attending/Attestation - Attestation I have personally seen and examined this patient.: Yes I have fully participated in the care of the patient.: Yes I have reviewed all pertinent clinical information, including history, physical exam and plan: Yes Notes (Text): Pt was seen and examined at bedside Agree with above note and assessment Repeat MRI today DC plan PO antibiotics Plan d.w pt in detail
[2018-01-08] MEDS: Saccharomyces Boulardi 250 mg Cap PO SCH ×2 (10:30→18:02)
[2018-01-08] MEDS: Multiple Vitamins Tab PO SCH (10:30)
[2018-01-08] MEDS ORDERED: Midazolam 2 MG/2 ML VIAL IVP PRN ×3 (13:09→13:46)
--- NOTE | 2018-01-08 15:25 | MRI ---
Date of service: 01/08/2018 PROCEDURE: MRI Left Elbow HISTORY: Pain. COMPARISON: None available. TECHNIQUE: Multiecho multiplanar sequences were performed through the left elbow without the use of intravenous contrast. FINDINGS: BONES: Intact. CARTILAGE: Preserved. JOINT FLUID: Normal. MUSCLES: Normal. VESSELS: Normal. NERVES: Cubital tunnel normal. MEDIAL: Flexor pronator origin intact. Ulnar collateral ligament intact. LATERAL: Partial tear at the origin of the common extensor tendon group.. Radial collateral ligament intact. Lateral ulnar collateral ligament intact. TRICEPS TENDON: Intact. BICEPS TENDON: Intact. BRACHIALIS TENDON: Intact. OTHER FINDINGS: Extensive infiltration in the olecranon bursa without definite drainable fluid collection consistent with severe olecranon bursitis. IMPRESSION: Partial tear at the origin of the common extensor tendon group. Extensive infiltration in the olecranon bursa without definite drainable fluid collection consistent with severe olecranon bursitis.
--- NOTE | 2018-01-08 18:06 | CP.PCM.PN ---
Subjective - Date & Time of Evaluation Date of Evaluation: 01/08/18 Time of Evaluation: 10:00 - Subjective Subjective: slow progress IV rx/ wound care in progress overall improved with good rom Objective - Vital Signs/Intake and Output Vital Signs (last 24 hours): Temp Pulse Resp BP Pulse Ox 97.7 F 86 18 117/78 100 01/08/18 16:00 01/08/18 16:00 01/08/18 16:00 01/08/18 16:00 01/08/18 16:00 Intake and Output: 01/08/18 01/08/18 06:59 18:59 Intake Total 850 Balance 850 - Medications Medications: Current Medications Acetaminophen (Tylenol 325mg Tab) 650 mg PO Q6 PRN PRN Reason: Pain, moderate (4-7) Last Admin: 01/08/18 16:41 Dose: 650 mg Aripiprazole (Abilify) 15 mg PO DAILY [facility] Last Admin: 01/08/18 11:56 Dose: 15 mg Bacitracin (Bacitracin) 1 gm TOP Q6H PRN PRN Reason: Abrasion Last Admin: 12/24/17 18:30 Dose: 1 gm Bupropion HCl (Wellbutrin) 150 mg PO DAILY [facility] Last Admin: 01/08/18 10:33 Dose: 150 mg Emollient Ointment (Vaseline Oint) 5 gm TOP Q4H PRN PRN Reason: Dry skin Last Admin: 01/01/18 12:15 Dose: 5 gm Folic Acid (Folic Acid) 1 mg PO DAILY [facility] Last Admin: 01/08/18 12:56 Dose: 1 mg Gabapentin (Neurontin) 300 mg PO BID [facility] Last Admin: 01/08/18 18:02 Dose: 300 mg Haloperidol (Haldol) 5 mg PO Q4 PRN PRN Reason: Agitation Hydroxyzine HCl (Atarax) 50 mg PO Q6 PRN PRN Reason: Anxiety Clindamycin Phosphate 600 mg/ (Sodium Chloride) 54 mls @ 100 mls/hr IVPB Q8H [facility]; Protocol Last Admin: 01/08/18 14:04 Dose: 100 mls/hr Midazolam HCl (Versed Inj) 2.5 mg IVP ONCE PRN PRN Reason: Anxiety Last Admin: 01/08/18 14:02 Dose: 2.5 mg Multivitamins (Hexavitamin) 1 tab PO DAILY [facility] Last Admin: 01/08/18 10:30 Dose: 1 tab Nicotine (Nicoderm Cq) 1 patch TD DAILY [facility] Last Admin: 01/08/18 10:31 Dose: 1 patch Saccharomyces Boulardii (Florastor) 250 mg PO BID [facility] Last Admin: 01/08/18 18:02 Dose: 250 mg Thiamine HCl (Vitamin B1 Tab) 100 mg PO DAILY [facility] Last Admin: 01/08/18 10:30 Dose: 100 mg Trazodone HCl (Desyrel) 150 mg PO HS PRN PRN Reason: Insomnia Last Admin: 01/07/18 22:31 Dose: 150 mg Vitamin A (Vitamin A & D Oint Ud Foilpak) 1 ea TOP Q8 PRN PRN Reason: Dry skin Last Admin: 01/05/18 09:25 Dose: 1 ea - Labs Labs: 01/08/18 07:15 01/08/18 07:15 PT 12.0 SECONDS (9.7-12.2) 12/28/17 11:56 INR 1.1 12/28/17 11:56 APTT 36 SECONDS (21-34) H 12/28/17 11:56 - Constitutional Appears: No Acute Distress - Head Exam Head Exam: NORMOCEPHALIC - Eye Exam Eye Exam: Conjunctival injection - ENT Exam ENT Exam: Mucous Membranes Dry - Neck Exam Neck Exam: absent: Lymphadenopathy - Respiratory Exam Respiratory Exam: Decreased Breath Sounds - Cardiovascular Exam Cardiovascular Exam: REGULAR RHYTHM - GI/Abdominal Exam GI & Abdominal Exam: Distended, Soft Assessment and Plan - Assessment and Plan (Free Text) Assessment: improving olecranon bursitis/ cellulitis
--- NOTE | 2018-01-08 23:18 | CP.PCM.PN ---
Subjective - Date & Time of Evaluation Date of Evaluation: 01/06/18 Time of Evaluation: 15:00 - Subjective Subjective: Dr Lilliam Ruiz covering for Dr. Bryan Menjivar III Pt seen 01/06/18 at the request of Dr. Rudd for ortho follow-up. Subjective: Pt sitting up in bed, appears and reports that he is not in pain. Denies fevers, chills, BURROUGHS, N&V, numbness/tingling, CP, SOB. Objective - Vital Signs/Intake and Output Vital Signs (last 24 hours): Temp Pulse Resp BP Pulse Ox 97.7 F 86 18 117/78 100 01/08/18 16:00 01/08/18 16:00 01/08/18 16:00 01/08/18 16:00 01/08/18 16:00 Intake and Output: 01/08/18 01/09/18 18:59 06:59 Intake Total 850 1050 Balance 850 1050 - Medications Medications: Current Medications Acetaminophen (Tylenol 325mg Tab) 650 mg PO Q6 PRN PRN Reason: Pain, moderate (4-7) Last Admin: 01/08/18 16:41 Dose: 650 mg Aripiprazole (Abilify) 15 mg PO DAILY [facility] Last Admin: 01/08/18 11:56 Dose: 15 mg Bacitracin (Bacitracin) 1 gm TOP Q6H PRN PRN Reason: Abrasion Last Admin: 12/24/17 18:30 Dose: 1 gm Bupropion HCl (Wellbutrin) 150 mg PO DAILY [facility] Last Admin: 01/08/18 10:33 Dose: 150 mg Emollient Ointment (Vaseline Oint) 5 gm TOP Q4H PRN PRN Reason: Dry skin Last Admin: 01/01/18 12:15 Dose: 5 gm Folic Acid (Folic Acid) 1 mg PO DAILY [facility] Last Admin: 01/08/18 12:56 Dose: 1 mg Gabapentin (Neurontin) 300 mg PO BID [facility] Last Admin: 01/08/18 18:02 Dose: 300 mg Haloperidol (Haldol) 5 mg PO Q4 PRN PRN Reason: Agitation Hydroxyzine HCl (Atarax) 50 mg PO Q6 PRN PRN Reason: Anxiety Clindamycin Phosphate 600 mg/ (Sodium Chloride) 54 mls @ 100 mls/hr IVPB Q8H [facility]; Protocol Last Admin: 01/08/18 21:14 Dose: 100 mls/hr Midazolam HCl (Versed Inj) 2.5 mg IVP ONCE PRN PRN Reason: Anxiety Last Admin: 01/08/18 14:02 Dose: 2.5 mg Multivitamins (Hexavitamin) 1 tab PO DAILY [facility] Last Admin: 01/08/18 10:30 Dose: 1 tab Nicotine (Nicoderm Cq) 1 patch TD DAILY [facility] Last Admin: 01/08/18 10:31 Dose: 1 patch Saccharomyces Boulardii (Florastor) 250 mg PO BID [facility] Last Admin: 01/08/18 18:02 Dose: 250 mg Thiamine HCl (Vitamin B1 Tab) 100 mg PO DAILY [facility] Last Admin: 01/08/18 10:30 Dose: 100 mg Trazodone HCl (Desyrel) 150 mg PO HS PRN PRN Reason: Insomnia Last Admin: 01/08/18 21:13 Dose: 150 mg Vitamin A (Vitamin A & D Oint Ud Foilpak) 1 ea TOP Q8 PRN PRN Reason: Dry skin Last Admin: 01/05/18 09:25 Dose: 1 ea - Labs Labs: 01/08/18 07:15 01/08/18 07:15 PT 12.0 SECONDS (9.7-12.2) 12/28/17 11:56 INR 1.1 12/28/17 11:56 APTT 36 SECONDS (21-34) H 12/28/17 11:56 - Extremities Exam Additional comments: RIght Upper Extremity: -TTP, - swelling/erythema/warmth, skin intact, full range of motio at all joints without pain, - instability +5/5 motor strength shoulder forward flexion/abduction/external rotation/internal rotation, elbow flexion/extension, wrist flexion/extension/supination/pronation, finger order checker/flexion/extension in all joints Sensory intact C5-T2, ulnar nerve/median nerve/radial nerve/muscular cutaneous nerve/axillary nerve, ulnar and radial aspect of all fingers 2+ radial artery pulse, brisk cap refill all fingers Left upper extremity: + Small open wound at the posterior aspect of the elbow directly over the olecranon, no active drainage at this point in time, minimal blanching erythema surrounding the open wound, no warmth, minimal TTP Full range of motion at all joints without pain including elbow +5/5 motor strength shoulder forward flexion/abduction/external rotation/internal rotation, elbow flexion/extension, wrist flexion/extension/supination/pronation, finger order checker/flexion/extension in all joints Sensory intact C5-T2, ulnar nerve/median nerve/radial nerve/muscular cutaneous nerve/axillary nerve, ulnar and radial aspect of all fingers 2+ radial artery pulse, brisk cap refill all fingers Assessment and Plan (1) Olecranon bursa abscess Assessment & Plan: 47-year-old male with L elbow improved pain Diagnosis = L elbow septic olecranon bursitis s/p L elbow I&D septic olecranon bursitis by Dr. Lloyd 12/28/17 POD# 9 plan: L elbow: -After a long discussion with the patient and review of records, L elbow presentation appears to be markedly improved since admission and undergoing I&D -Today, there is no juan alberto pus expressed and barely any drainage, minimal blanching erythema and no fluctuance -Seems to be progressing well -Continue infectious disease recommendations, IV antibiotics -Currently, there is no indication for a repeat I&D as he appears to be progressing well -There is concern that the small opening at the center of the healed surgical wound may have delayed closure for remaining chronically open, if there is no significant clinical progress/wound healing and closure, consider repeat I&D at that point to remove the open portion of the wound and revise the wound. This time wound closure should be complete with no area left open as the infection has improved. Prior to the wound closure, thorough I&D in the same setting is advised. If there is any question about the integrity of tissue or the open wound enl arges, then I would involve the wound care team/plastic surgery consult. If the open portion of the wound shows good clinical progress and closes eventually with no evidence of deep infection then no need for any intervention. -Consider serial ESR and CRP to monitor objective measures of infection r esolution -Continue recommended iodine wet-to-dry dressings -Pain control -Please contact me with any questions, concerns, updates at [phone] thank you for allowing me to contribute To the care of your patient. Lilliam Ruiz MD Orthopedic surgery Status: Acute (2) Olecranon bursitis of left elbow Status: Acute
[2018-01-09 01:53] VITALS: RESP 20
--- NOTE | 2018-01-09 02:46 | CP.PCM.PN ---
Subjective - Date & Time of Evaluation Date of Evaluation: 01/09/18 Time of Evaluation: 02:44 - Subjective Subjective: PGY-1 Medicine Progress Note for Dr. Allen service Patient seen and examined at bedside. Patient reports mild pain on right elbow. Patient denies fevers, chills, chest pain, sob, n/v, constipation or diarrhea, dysuria. Objective - Vital Signs/Intake and Output Vital Signs (last 24 hours): Temp Pulse Resp BP Pulse Ox 97.7 F 73 20 99/60 L 98 01/09/18 00:00 01/09/18 00:00 01/09/18 00:00 01/09/18 00:00 01/09/18 00:00 Intake and Output: 01/08/18 01/09/18 18:59 06:59 Intake Total 850 1050 Balance 850 1050 - Medications Medications: Current Medications Acetaminophen (Tylenol 325mg Tab) 650 mg PO Q6 PRN PRN Reason: Pain, moderate (4-7) Last Admin: 01/08/18 16:41 Dose: 650 mg Aripiprazole (Abilify) 15 mg PO DAILY [facility] Last Admin: 01/08/18 11:56 Dose: 15 mg Bacitracin (Bacitracin) 1 gm TOP Q6H PRN PRN Reason: Abrasion Last Admin: 12/24/17 18:30 Dose: 1 gm Bupropion HCl (Wellbutrin) 150 mg PO DAILY [facility] Last Admin: 01/08/18 10:33 Dose: 150 mg Emollient Ointment (Vaseline Oint) 5 gm TOP Q4H PRN PRN Reason: Dry skin Last Admin: 01/01/18 12:15 Dose: 5 gm Folic Acid (Folic Acid) 1 mg PO DAILY [facility] Last Admin: 01/08/18 12:56 Dose: 1 mg Gabapentin (Neurontin) 300 mg PO BID [facility] Last Admin: 01/08/18 18:02 Dose: 300 mg Haloperidol (Haldol) 5 mg PO Q4 PRN PRN Reason: Agitation Hydroxyzine HCl (Atarax) 50 mg PO Q6 PRN PRN Reason: Anxiety Clindamycin Phosphate 600 mg/ (Sodium Chloride) 54 mls @ 100 mls/hr IVPB Q8H [facility]; Protocol Last Admin: 01/08/18 21:14 Dose: 100 mls/hr Midazolam HCl (Versed Inj) 2.5 mg IVP ONCE PRN PRN Reason: Anxiety Last Admin: 01/08/18 14:02 Dose: 2.5 mg Multivitamins (Hexavitamin) 1 tab PO DAILY [facility] Last Admin: 01/08/18 10:30 Dose: 1 tab Nicotine (Nicoderm Cq) 1 patch TD DAILY [facility] Last Admin: 01/08/18 10:31 Dose: 1 patch Saccharomyces Boulardii (Florastor) 250 mg PO BID [facility] Last Admin: 01/08/18 18:02 Dose: 250 mg Thiamine HCl (Vitamin B1 Tab) 100 mg PO DAILY [facility] Last Admin: 01/08/18 10:30 Dose: 100 mg Trazodone HCl (Desyrel) 150 mg PO HS PRN PRN Reason: Insomnia Last Admin: 01/08/18 21:13 Dose: 150 mg Vitamin A (Vitamin A & D Oint Ud Foilpak) 1 ea TOP Q8 PRN PRN Reason: Dry skin Last Admin: 01/05/18 09:25 Dose: 1 ea - Labs Labs: 01/08/18 07:15 01/08/18 07:15 PT 12.0 SECONDS (9.7-12.2) 12/28/17 11:56 INR 1.1 12/28/17 11:56 APTT 36 SECONDS (21-34) H 12/28/17 11:56 - Additional Findings Additional findings: - Constitutional Appears: Non-toxic, No Acute Distress - Head Exam Head Exam: ATRAUMATIC, NORMAL INSPECTION, NORMOCEPHALIC - Eye Exam Eye Exam: Normal appearance - Respiratory Exam Respiratory Exam: Clear to Ausculation Bilateral, NORMAL BREATHING PATTERN. absent: Rales, Rhonchi, Wheezes - Cardiovascular Exam Cardiovascular Exam: +S1, +S2 - Extremities Exam Extremities Exam: Full ROM. absent: Calf Tenderness, Pedal Edema Additional comments: Elbow is covered with a 4 x 4 dressing today. Area is not erethematous, no active drainage, no tenderness with palpation Currently managed by surgery - Back Exam Back Exam: absent: CVA tenderness (L), CVA tenderness (R) - Neurological Exam Neurological Exam: Alert, Awake, Oriented x3 - Psychiatric Exam Psychiatric exam: Normal Affect, Normal Mood - Skin Skin Exam: Dry, Intact, Normal Color, Warm Assessment and Plan - Assessment and Plan (Free Text) Assessment: 43 year old male with history of depression admitted for psychiatric treatment. Medicine consulted for evaluation of left elbow wound. S/P incision and drainage of left elbow 12/28/17. Plan: Left elbow cellulitis 12/28/17 MRI- Limited study as the patient could not tolerate gadolinium. Exte nsive motion artifact. 1. At the level of the olecranon bursa, there is a 1.4 x.4 x 5.7 centimeter lobulated heterogeneous increased STIR signal intensity collection. This is suggestive for an underlying olecranon bursitis with superimposed acute inflammatory and or infectious changes not excluded. Please note no contrast was given on this study, markedly limiting evaluation for abscess formation. Prominent reticulation and edema within the adjacent subcutaneous soft tissues. No gross signal abnormality within the adjacent olecranon to suggest an acute osteomyelitis. 2. Heterogeneity of the visualized marrow within the proximal radius with patchy decreased T1 signal suggestive for hematopoietic marrow reconversion. 3. Small elbow joint effusion. Repeat MRI 01/08/18- Partial tear at the origin of the common extensor tendon group; Extensive infiltration in the olecranon bursa without definite drainable fluid collection consistent with severe olecranon bursitis Ortho Consulted- no acute intervention required ID consulted- Dr. Aguilera- recommendations are clinda, d/c meropenum 2/2 to negative cultures Afebrile, no leukocytosis noted Clindamycin 600mg IV daily [facility]; Bacitracin 1gm top q6h prn; Florastor 250 mg po daily Initial Wound cx positive for MRSA; repeat negative History of depression with psychotic features Psych Consulted- Dr. Owusu- recommendations as below Patient currently denies suicidal or homicidal thoughts with no auditory or visual hallucinations. Ability 15mg PO Wellbutrin 150mg PO daily Haldol 5mg PO Q4 PRN Atarax 50mg PO Q6 PRN Trazodone 150mg PO HS PRN PPX DVT ppx- SCDs GI ppx- Florastor Disposition: Pending surgery for discharge planning
[2018-01-09 07:47] LABS: HEMOGLOBIN 11.1 g/dL (12.0-18.0); MEAN CELL VOLUME 82.8 fL (80.0-94.0); MEAN CORPUSCULAR HEMOGLOBIN 27.5 pg (27.0-31.0); MEAN CORPUSCULAR HGB CONC 33.2 g/dL (33.0-37.0); MEAN PLATELET VOLUME 8.1 fL (7.2-11.7); RBC 4.03 Mil/uL (4.40-5.90); RED CELL DISTRIBUTION WIDTH 18.7 % (11.5-14.5); WHITE BLOOD COUNT 3.2 K/uL (4.8-10.8)
[2018-01-09 08:18] LABS: ALB/GLOB RATIO 1.1 (1.0-2.1); ALBUMIN 3.1 g/dL (3.5-5.0); ALT/SGPT 39 U/L (21-72); AST/SGOT 44 U/L (17-59); BLOOD UREA NITROGEN 11 mg/dL (9-20); CALCIUM 8.3 mg/dl (8.6-10.4); GFR NON-AFRICAN AMERICAN > 60
--- NOTE | 2018-01-09 08:24 | CP.PCM.PN ---
<Shelia Patton - Last Filed: 01/09/18 09:48> Subjective - Date & Time of Evaluation Date of Evaluation: 01/09/18 Time of Evaluation: 06:40 - Subjective Subjective: General surgery progress note for Dr. Lloyd Pt seen and examined this AM. No adverse events overnight, reports only mild pain, no fevers, chills, or decreased ROM Objective - Vital Signs/Intake and Output Vital Signs (last 24 hours): Temp Pulse Resp BP Pulse Ox 97.9 F 82 20 106/69 100 01/09/18 07:48 01/09/18 07:48 01/09/18 07:48 01/09/18 07:48 01/09/18 07:48 Intake and Output: 01/09/18 01/09/18 06:59 18:59 Intake Total 1050 Balance 1050 - Medications Medications: Current Medications Acetaminophen (Tylenol 325mg Tab) 650 mg PO Q6 PRN PRN Reason: Pain, moderate (4-7) Last Admin: 01/08/18 16:41 Dose: 650 mg Aripiprazole (Abilify) 15 mg PO DAILY [facility] Last Admin: 01/08/18 11:56 Dose: 15 mg Bacitracin (Bacitracin) 1 gm TOP Q6H PRN PRN Reason: Abrasion Last Admin: 12/24/17 18:30 Dose: 1 gm Bupropion HCl (Wellbutrin) 150 mg PO DAILY [facility] Last Admin: 01/08/18 10:33 Dose: 150 mg Emollient Ointment (Vaseline Oint) 5 gm TOP Q4H PRN PRN Reason: Dry skin Last Admin: 01/01/18 12:15 Dose: 5 gm Folic Acid (Folic Acid) 1 mg PO DAILY [facility] Last Admin: 01/08/18 12:56 Dose: 1 mg Gabapentin (Neurontin) 300 mg PO BID [facility] Last Admin: 01/08/18 18:02 Dose: 300 mg Haloperidol (Haldol) 5 mg PO Q4 PRN PRN Reason: Agitation Hydroxyzine HCl (Atarax) 50 mg PO Q6 PRN PRN Reason: Anxiety Clindamycin Phosphate 600 mg/ (Sodium Chloride) 54 mls @ 100 mls/hr IVPB Q8H [facility]; Protocol Last Admin: 01/09/18 05:44 Dose: 100 mls/hr Midazolam HCl (Versed Inj) 2.5 mg IVP ONCE PRN PRN Reason: Anxiety Last Admin: 01/08/18 14:02 Dose: 2.5 mg Multivitamins (Hexavitamin) 1 tab PO DAILY [facility] Last Admin: 01/08/18 10:30 Dose: 1 tab Nicotine (Nicoderm Cq) 1 patch TD DAILY [facility] Last Admin: 01/08/18 10:31 Dose: 1 patch Saccharomyces Boulardii (Florastor) 250 mg PO BID [facility] Last Admin: 01/08/18 18:02 Dose: 250 mg Thiamine HCl (Vitamin B1 Tab) 100 mg PO DAILY [facility] Last Admin: 01/08/18 10:30 Dose: 100 mg Trazodone HCl (Desyrel) 150 mg PO HS PRN PRN Reason: Insomnia Last Admin: 01/08/18 21:13 Dose: 150 mg Vitamin A (Vitamin A & D Oint Ud Foilpak) 1 ea TOP Q8 PRN PRN Reason: Dry skin Last Admin: 01/05/18 09:25 Dose: 1 ea - Labs Labs: 01/09/18 07:29 01/09/18 07:29 PT 12.0 SECONDS (9.7-12.2) 12/28/17 11:56 INR 1.1 12/28/17 11:56 APTT 36 SECONDS (21-34) H 12/28/17 11:56 - Constitutional Appears: Well, Non-toxic, No Acute Distress - Head Exam Head Exam: ATRAUMATIC, NORMOCEPHALIC - Eye Exam Eye Exam: Normal appearance. absent: Conjunctival injection, Scleral icterus - ENT Exam ENT Exam: Mucous Membranes Moist, Normal Oropharynx - Respiratory Exam Respiratory Exam: NORMAL BREATHING PATTERN. absent: Accessory Muscle Use, Respiratory Distress - Cardiovascular Exam Cardiovascular Exam: RRR - GI/Abdominal Exam GI & Abdominal Exam: Soft. absent: Distended - Extremities Exam Additional comments: right elbow with mild skin redness, incision site healing well, no fluctuance, induration, or swelling, full active ROM - Neurological Exam Neurological Exam: Alert, Awake, Oriented x3 - Psychiatric Exam Psychiatric exam: Normal Affect, Normal Mood - Skin Skin Exam: Dry, Warm Assessment and Plan - Assessment and Plan (Free Text) Assessment: 47M with elbow abscess POD#12 s/p incision and drainage MRI shows partial tear of the extensor tendon group and suspicion of severe bursitis without drainage fluid collection Plan: Continue current antibiotics--F/U ID recs F/U ortho recs PRN pain medication Given recent findings, recommend keeping patient through weekend and re- assessing clinical status on Thursday Discussed with Dr. Gabino Patton, PGY2 <Nic Lloyd - Last Filed: 01/10/18 18:52> Objective - Vital Signs/Intake and Output Vital Signs (last 24 hours): Temp Pulse Resp BP Pulse Ox 97.9 F 75 20 100/64 95 01/10/18 17:28 01/10/18 17:28 01/10/18 17:28 01/10/18 17:28 01/10/18 17:28 Intake and Output: 01/10/18 01/10/18 06:59 18:59 Intake Total 400 Balance 400 - Medications Medications: Current Medications Acetaminophen (Tylenol 325mg Tab) 650 mg PO Q6 PRN PRN Reason: Pain, moderate (4-7) Last Admin: 01/10/18 18:09 Dose: 650 mg Aripiprazole (Abilify) 15 mg PO DAILY [facility] Last Admin: 01/10/18 09:55 Dose: 15 mg Bacitracin (Bacitracin) 1 gm TOP Q6H PRN PRN Reason: Abrasion Last Admin: 12/24/17 18:30 Dose: 1 gm Bupropion HCl (Wellbutrin) 150 mg PO DAILY [facility] Last Admin: 01/10/18 09:56 Dose: 150 mg Emollient Ointment (Vaseline Oint) 5 gm TOP Q4H PRN PRN Reason: Dry skin Last Admin: 01/01/18 12:15 Dose: 5 gm Folic Acid (Folic Acid) 1 mg PO DAILY [facility] Last Admin: 01/10/18 09:52 Dose: 1 mg Gabapentin (Neurontin) 300 mg PO BID [facility] Last Admin: 01/10/18 17:40 Dose: 300 mg Haloperidol (Haldol) 5 mg PO Q4 PRN PRN Reason: Agitation Heparin Sodium (Porcine) (Heparin) 5,000 units SC Q8H [facility] Last Admin: 01/10/18 05:31 Dose: 5,000 units Hydroxyzine HCl (Atarax) 50 mg PO Q6 PRN PRN Reason: Anxiety Clindamycin Phosphate 600 mg/ (Sodium Chloride) 54 mls @ 100 mls/hr IVPB Q8H [facility]; Protocol Last Admin: 01/10/18 13:12 Dose: 100 mls/hr Midazolam HCl (Versed Inj) 2.5 mg IVP ONCE PRN PRN Reason: Anxiety Last Admin: 01/08/18 14:02 Dose: 2.5 mg Multivitamins (Hexavitamin) 1 tab PO DAILY [facility] Last Admin: 01/10/18 09:52 Dose: 1 tab Nicotine (Nicoderm Cq) 1 patch TD DAILY [facility] Last Admin: 01/10/18 09:52 Dose: 1 patch Saccharomyces Boulardii (Florastor) 250 mg PO BID [facility] Last Admin: 01/10/18 17:40 Dose: 250 mg Thiamine HCl (Vitamin B1 Tab) 100 mg PO DAILY [facility] Last Admin: 01/10/18 09:52 Dose: 100 mg Trazodone HCl (Desyrel) 150 mg PO HS PRN PRN Reason: Insomnia Last Admin: 01/09/18 22:28 Dose: 150 mg Vitamin A (Vitamin A & D Oint Ud Foilpak) 1 ea TOP Q8 PRN PRN Reason: Dry skin Last Admin: 01/05/18 09:25 Dose: 1 ea - Labs Labs: 01/10/18 07:25 01/10/18 07:25 PT 12.0 SECONDS (9.7-12.2) 12/28/17 11:56 INR 1.1 12/28/17 11:56 APTT 36 SECONDS (21-34) H 12/28/17 11:56 Attending/Attestation - Attestation I have fully participated in the care of the patient.: Yes I have reviewed all pertinent clinical information, including history, physical exam and plan: Yes Notes (Text): Cellulitis is improved repeat MRI reviewed C.w current mx Plan d.w pt in detail
[2018-01-09] MEDS: Saccharomyces Boulardi 250 mg Cap PO SCH ×2 (10:06→17:57)
[2018-01-09] MEDS: Multiple Vitamins Tab PO SCH (10:06)
--- NOTE | 2018-01-10 02:06 | CP.PCM.PN ---
Subjective - Date & Time of Evaluation Date of Evaluation: 01/10/18 Time of Evaluation: 02:03 - Subjective Subjective: PGY-1 Medicine Progress Note for Dr. Mahmood's service Patient seen and examined at bedside. Patient reports left calf tenderness. Patient had similar pain during this admission but tested negative for DVT. Patient denies fevers, chills, chest pain, sob, n/v, constipation or diarrhea, and dysuria. Objective - Vital Signs/Intake and Output Vital Signs (last 24 hours): Temp Pulse Resp BP Pulse Ox 97.6 F 66 20 100/62 96 01/10/18 00:00 01/10/18 00:00 01/10/18 00:00 01/10/18 00:00 01/10/18 00:00 Intake and Output: 01/09/18 01/10/18 18:59 06:59 Intake Total 800 Balance 800 - Medications Medications: Current Medications Acetaminophen (Tylenol 325mg Tab) 650 mg PO Q6 PRN PRN Reason: Pain, moderate (4-7) Last Admin: 01/09/18 17:58 Dose: 650 mg Aripiprazole (Abilify) 15 mg PO DAILY [facility] Last Admin: 01/09/18 10:07 Dose: 15 mg Bacitracin (Bacitracin) 1 gm TOP Q6H PRN PRN Reason: Abrasion Last Admin: 12/24/17 18:30 Dose: 1 gm Bupropion HCl (Wellbutrin) 150 mg PO DAILY [facility] Last Admin: 01/09/18 10:08 Dose: 150 mg Emollient Ointment (Vaseline Oint) 5 gm TOP Q4H PRN PRN Reason: Dry skin Last Admin: 01/01/18 12:15 Dose: 5 gm Folic Acid (Folic Acid) 1 mg PO DAILY [facility] Last Admin: 01/09/18 10:06 Dose: 1 mg Gabapentin (Neurontin) 300 mg PO BID [facility] Last Admin: 01/09/18 17:57 Dose: 300 mg Haloperidol (Haldol) 5 mg PO Q4 PRN PRN Reason: Agitation Heparin Sodium (Porcine) (Heparin) 5,000 units SC Q8H [facility] Hydroxyzine HCl (Atarax) 50 mg PO Q6 PRN PRN Reason: Anxiety Clindamycin Phosphate 600 mg/ (Sodium Chloride) 54 mls @ 100 mls/hr IVPB Q8H [facility]; Protocol Last Admin: 01/09/18 22:27 Dose: 100 mls/hr Midazolam HCl (Versed Inj) 2.5 mg IVP ONCE PRN PRN Reason: Anxiety Last Admin: 01/08/18 14:02 Dose: 2.5 mg Multivitamins (Hexavitamin) 1 tab PO DAILY [facility] Last Admin: 01/09/18 10:06 Dose: 1 tab Nicotine (Nicoderm Cq) 1 patch TD DAILY [facility] Last Admin: 01/09/18 10:08 Dose: 1 patch Saccharomyces Boulardii (Florastor) 250 mg PO BID [facility] Last Admin: 01/09/18 17:57 Dose: 250 mg Thiamine HCl (Vitamin B1 Tab) 100 mg PO DAILY [facility] Last Admin: 01/09/18 10:06 Dose: 100 mg Trazodone HCl (Desyrel) 150 mg PO HS PRN PRN Reason: Insomnia Last Admin: 01/09/18 22:28 Dose: 150 mg Vitamin A (Vitamin A & D Oint Ud Foilpak) 1 ea TOP Q8 PRN PRN Reason: Dry skin Last Admin: 01/05/18 09:25 Dose: 1 ea - Labs Labs: 01/09/18 07:29 01/09/18 07:29 PT 12.0 SECONDS (9.7-12.2) 12/28/17 11:56 INR 1.1 12/28/17 11:56 APTT 36 SECONDS (21-34) H 12/28/17 11:56 - Additional Findings Additional findings: - Constitutional Appears: Non-toxic, No Acute Distress - Head Exam Head Exam: ATRAUMATIC, NORMAL INSPECTION, NORMOCEPHALIC - Eye Exam Eye Exam: Normal appearance - Respiratory Exam Respiratory Exam: Clear to Ausculation Bilateral, NORMAL BREATHING PATTERN. absent: Rales, Rhonchi, Wheezes - Cardiovascular Exam Cardiovascular Exam: +S1, +S2 - Extremities Exam Extremities Exam: Full ROM. absent: Calf Tenderness, Pedal Edema Additional comments: Elbow is covered with a 4 x 4 dressing today. Area is not erethematous, no active drainage, no tenderness with palpation Currently managed by surgery - Back Exam Back Exam: absent: CVA tenderness (L), CVA tenderness (R) - Neurological Exam Neurological Exam: Alert, Awake, Oriented x3 - Psychiatric Exam Psychiatric exam: Normal Affect, Normal Mood - Skin Skin Exam: Dry, Intact, Normal Color, Warm Assessment and Plan - Assessment and Plan (Free Text) Assessment: 43 year old male with history of depression admitted for psychiatric treatment. Medicine consulted for evaluation of left elbow wound. S/P incision and drainage of left elbow 12/28/17. Plan: Left elbow cellulitis 12/28/17 MRI- Limited study as the patient could not tolerate gadolinium. Extensive motion artifact. 1. At the level of the olecranon bursa, there is a 1.4 x.4 x 5.7 centimeter lobulated heterogeneous increased STIR signal intensity collection. This is suggestive for an underlying olecranon bursitis with superimposed acute inflammatory and or infectious changes not excluded. Please note no contrast was given on this study, markedly limiting evaluation for abscess formation. Prominent reticulation and edema within the adjacent subcutaneous soft tissues. No gross signal abnormality within the adjacent olecranon to suggest an acute osteomyelitis. 2. Heterogeneity of the visualized marrow within the proximal radius with patchy decreased T1 signal suggestive for hematopoietic marrow reconversion. 3. Small elbow joint effusion. Repeat MRI 01/08/18- Partial tear at the origin of the common extensor tendon group; Extensive infiltration in the olecranon bursa without definite drainable fluid collection consistent with severe olecranon bursitis Ortho Consulted- no acute intervention required ID consulted- Dr. Aguilera- recommendations are clinda, d/c meropenum 2/ to negative cultures Afebrile, no leukocytosis noted Clindamycin 600mg IV daily rachana; Bacitracin 1gm top q6h prn; Florastor 250 mg po daily Initial Wound cx positive for MRSA; repeat negative History of depression with psychotic features Psych Consulted- Dr. Owusu- recommendations as below Patient currently denies suicidal or homicidal thoughts with no auditory or visual hallucinations. Ability 15mg PO Wellbutrin 150mg PO daily Haldol 5mg PO Q4 PRN Atarax 50mg PO Q6 PRN Trazodone 150mg PO HS PRN Lower Extremity calf tenderness Heparin 5000 units sc q8h D-dimer negative PPX DVT ppx- SCDs; Heparin 5000 units sc q8h GI ppx- Florastor Disposition: Pending surgery for discharge planning
[2018-01-10 07:42] LABS: HEMOGLOBIN 10.6 g/dL (12.0-18.0); MEAN CELL VOLUME 83.1 fL (80.0-94.0); MEAN CORPUSCULAR HEMOGLOBIN 27.3 pg (27.0-31.0); MEAN CORPUSCULAR HGB CONC 32.9 g/dL (33.0-37.0); MEAN PLATELET VOLUME 7.9 fL (7.2-11.7); RBC 3.89 Mil/uL (4.40-5.90); RED CELL DISTRIBUTION WIDTH 18.9 % (11.5-14.5); WHITE BLOOD COUNT 2.8 K/uL (4.8-10.8)
[2018-01-10 08:05] LABS: ALB/GLOB RATIO 1.1 (1.0-2.1); ALBUMIN 3.1 g/dL (3.5-5.0); ALT/SGPT 34 U/L (21-72); AST/SGOT 35 U/L (17-59); BLOOD UREA NITROGEN 11 mg/dL (9-20); CALCIUM 8.2 mg/dl (8.6-10.4); GFR NON-AFRICAN AMERICAN > 60
--- NOTE | 2018-01-10 08:14 | CP.PCM.PN ---
<Shelia Patton - Last Filed: 01/10/18 09:11> Subjective - Date & Time of Evaluation Date of Evaluation: 01/10/18 Time of Evaluation: 06:50 - Subjective Subjective: Surgery progress note for Dr. Lloyd Pt seen and examined at bedside this AM. Denies any pain, fevers, or chills Objective - Vital Signs/Intake and Output Vital Signs (last 24 hours): Temp Pulse Resp BP Pulse Ox 98.5 F 74 20 112/78 100 01/10/18 07:36 01/10/18 07:36 01/10/18 07:36 01/10/18 07:36 01/10/18 07:36 - Medications Medications: Current Medications Acetaminophen (Tylenol 325mg Tab) 650 mg PO Q6 PRN PRN Reason: Pain, moderate (4-7) Last Admin: 01/09/18 17:58 Dose: 650 mg Aripiprazole (Abilify) 15 mg PO DAILY [facility] Last Admin: 01/09/18 10:07 Dose: 15 mg Bacitracin (Bacitracin) 1 gm TOP Q6H PRN PRN Reason: Abrasion Last Admin: 12/24/17 18:30 Dose: 1 gm Bupropion HCl (Wellbutrin) 150 mg PO DAILY [facility] Last Admin: 01/09/18 10:08 Dose: 150 mg Emollient Ointment (Vaseline Oint) 5 gm TOP Q4H PRN PRN Reason: Dry skin Last Admin: 01/01/18 12:15 Dose: 5 gm Folic Acid (Folic Acid) 1 mg PO DAILY [facility] Last Admin: 01/09/18 10:06 Dose: 1 mg Gabapentin (Neurontin) 300 mg PO BID [facility] Last Admin: 01/09/18 17:57 Dose: 300 mg Haloperidol (Haldol) 5 mg PO Q4 PRN PRN Reason: Agitation Heparin Sodium (Porcine) (Heparin) 5,000 units SC Q8H [facility] Last Admin: 01/10/18 05:31 Dose: 5,000 units Hydroxyzine HCl (Atarax) 50 mg PO Q6 PRN PRN Reason: Anxiety Clindamycin Phosphate 600 mg/ (Sodium Chloride) 54 mls @ 100 mls/hr IVPB Q8H [facility]; Protocol Last Admin: 01/10/18 05:30 Dose: 100 mls/hr Midazolam HCl (Versed Inj) 2.5 mg IVP ONCE PRN PRN Reason: Anxiety Last Admin: 01/08/18 14:02 Dose: 2.5 mg Multivitamins (Hexavitamin) 1 tab PO DAILY [facility] Last Admin: 01/09/18 10:06 Dose: 1 tab Nicotine (Nicoderm Cq) 1 patch TD DAILY [facility] Last Admin: 01/09/18 10:08 Dose: 1 patch Saccharomyces Boulardii (Florastor) 250 mg PO BID [facility] Last Admin: 01/09/18 17:57 Dose: 250 mg Thiamine HCl (Vitamin B1 Tab) 100 mg PO DAILY [facility] Last Admin: 01/09/18 10:06 Dose: 100 mg Trazodone HCl (Desyrel) 150 mg PO HS PRN PRN Reason: Insomnia Last Admin: 01/09/18 22:28 Dose: 150 mg Vitamin A (Vitamin A & D Oint Ud Foilpak) 1 ea TOP Q8 PRN PRN Reason: Dry skin Last Admin: 01/05/18 09:25 Dose: 1 ea - Labs Labs: 01/10/18 07:25 01/10/18 07:25 PT 12.0 SECONDS (9.7-12.2) 12/28/17 11:56 INR 1.1 12/28/17 11:56 APTT 36 SECONDS (21-34) H 12/28/17 11:56 - Constitutional Appears: Well, Non-toxic, No Acute Distress - Head Exam Head Exam: ATRAUMATIC, NORMOCEPHALIC - Eye Exam Eye Exam: Normal appearance. absent: Conjunctival injection, Scleral icterus - ENT Exam ENT Exam: Mucous Membranes Moist, Normal Oropharynx - Respiratory Exam Respiratory Exam: NORMAL BREATHING PATTERN. absent: Accessory Muscle Use, Respiratory Distress - Cardiovascular Exam Cardiovascular Exam: RRR - GI/Abdominal Exam GI & Abdominal Exam: Soft. absent: Distended - Extremities Exam Additional comments: left elbow incision healing well, mildly tender, no fluctuance or swelling, normal active ROM - Neurological Exam Neurological Exam: Alert, Awake - Psychiatric Exam Psychiatric exam: Normal Affect, Normal Mood - Skin Skin Exam: Dry, Normal Color, Warm Assessment and Plan - Assessment and Plan (Free Text) Assessment: 47M POD# 13 s/p incision and drainage of left elbow abscess Plan: Continue antibiotics per ID recommendations If patient continues to be stable/improves, will consider clearing for D/C tomorrow PRN pain medication No further general surgery intervention indicated Discussed with Dr. Lloyd, who agrees with above Shelia Patton PGY2 <Nic Lloyd - Last Filed: 01/10/18 18:53> Objective - Vital Signs/Intake and Output Vital Signs (last 24 hours): Temp Pulse Resp BP Pulse Ox 97.9 F 75 20 100/64 95 01/10/18 17:28 01/10/18 17:28 01/10/18 17:28 01/10/18 17:28 01/10/18 17:28 Intake and Output: 01/10/18 01/10/18 06:59 18:59 Intake Total 400 Balance 400 - Medications Medications: Current Medications Acetaminophen (Tylenol 325mg Tab) 650 mg PO Q6 PRN PRN Reason: Pain, moderate (4-7) Last Admin: 01/10/18 18:09 Dose: 650 mg Aripiprazole (Abilify) 15 mg PO DAILY [facility] Last Admin: 01/10/18 09:55 Dose: 15 mg Bacitracin (Bacitracin) 1 gm TOP Q6H PRN PRN Reason: Abrasion Last Admin: 12/24/17 18:30 Dose: 1 gm Bupropion HCl (Wellbutrin) 150 mg PO DAILY [facility] Last Admin: 01/10/18 09:56 Dose: 150 mg Emollient Ointment (Vaseline Oint) 5 gm TOP Q4H PRN PRN Reason: Dry skin Last Admin: 01/01/18 12:15 Dose: 5 gm Folic Acid (Folic Acid) 1 mg PO DAILY [facility] Last Admin: 01/10/18 09:52 Dose: 1 mg Gabapentin (Neurontin) 300 mg PO BID [facility] Last Admin: 01/10/18 17:40 Dose: 300 mg Haloperidol (Haldol) 5 mg PO Q4 PRN PRN Reason: Agitation Heparin Sodium (Porcine) (Heparin) 5,000 units SC Q8H [facility] Last Admin: 01/10/18 05:31 Dose: 5,000 units Hydroxyzine HCl (Atarax) 50 mg PO Q6 PRN PRN Reason: Anxiety Clindamycin Phosphate 600 mg/ (Sodium Chloride) 54 mls @ 100 mls/hr IVPB Q8H [facility]; Protocol Last Admin: 01/10/18 13:12 Dose: 100 mls/hr Midazolam HCl (Versed Inj) 2.5 mg IVP ONCE PRN PRN Reason: Anxiety Last Admin: 01/08/18 14:02 Dose: 2.5 mg Multivitamins (Hexavitamin) 1 tab PO DAILY [facility] Last Admin: 01/10/18 09:52 Dose: 1 tab Nicotine (Nicoderm Cq) 1 patch TD DAILY [facility] Last Admin: 01/10/18 09:52 Dose: 1 patch Saccharomyces Boulardii (Florastor) 250 mg PO BID [facility] Last Admin: 01/10/18 17:40 Dose: 250 mg Thiamine HCl (Vitamin B1 Tab) 100 mg PO DAILY [facility] Last Admin: 01/10/18 09:52 Dose: 100 mg Trazodone HCl (Desyrel) 150 mg PO HS PRN PRN Reason: Insomnia Last Admin: 01/09/18 22:28 Dose: 150 mg Vitamin A (Vitamin A & D Oint Ud Foilpak) 1 ea TOP Q8 PRN PRN Reason: Dry skin Last Admin: 01/05/18 09:25 Dose: 1 ea - Labs Labs: 01/10/18 07:25 01/10/18 07:25 PT 12.0 SECONDS (9.7-12.2) 12/28/17 11:56 INR 1.1 12/28/17 11:56 APTT 36 SECONDS (21-34) H 12/28/17 11:56 Attending/Attestation - Attestation I have fully participated in the care of the patient.: Yes I have reviewed all pertinent clinical information, including history, physical exam and plan: Yes Notes (Text): Pt is improving clinically DC plan with PO antibiotics f.u as out pt Plan d.w pt in detail
[2018-01-10] MEDS: Multiple Vitamins Tab PO SCH (09:52)
[2018-01-10] MEDS: Saccharomyces Boulardi 250 mg Cap PO SCH ×2 (09:52→17:40)
--- NOTE | 2018-01-10 12:24 | US ---
Date of service: 01/10/2018 PROCEDURE: Ultrasound soft tissue left lower extremity HISTORY: left calf tnedrenss COMPARISON: Not available TECHNIQUE: Ultrasound examination of the left calf was performed utilizing a high-frequency linear array transducer. FINDINGS: No solid or cystic mass is identified. There is subcutaneous edema demonstrated. IMPRESSION: No mass/abscess identified.
--- NOTE | 2018-01-10 15:48 | CP.PCM.DIS ---
<Fatuma Anguiano E - Last Filed: 01/10/18 16:23> Provider - Provider Date of Admission: 12/24/17 10:25 Attending physician: Nahun Nicholson DO Time Spent in preparation of Discharge (in minutes): 45 Diagnosis - Discharge Diagnosis (1) Olecranon bursa abscess Status: Acute Hospital Course - Lab Results Lab Results: Micro Results 01/06/18 12:14 Abscess - Elbow Gram Stain - Final 01/06/18 12:14 Abscess - Elbow Wound Culture - Final No Growth 12/28/17 18:18 Abscess - Elbow-Left Gram Stain - Final 12/28/17 18:18 Abscess - Elbow-Left Wound Culture - Final Staphylococcus Aureus 12/28/17 22:47 Naris MRSA Culture - Final MRSA NOT DETECTED 12/24/17 19:42 Elbow - Left Gram Stain - Final 12/24/17 19:42 Elbow - Left Wound Culture - Final Methicillin Resistant S Aureus Most Recent Lab Values WBC 2.8 K/uL (4.8-10.8) L 01/10/18 07:25 RBC 3.89 Mil/uL (4.40-5.90) L 01/10/18 07:25 Hgb 10.6 g/dL (12.0-18.0) L 01/10/18 07:25 Hct 32.3 % (35.0-51.0) L 01/10/18 07:25 MCV 83.1 fL (80.0-94.0) 01/10/18 07:25 MCH 27.3 pg (27.0-31.0) 01/10/18 07:25 MCHC 32.9 g/dL (33.0-37.0) L 01/10/18 07:25 RDW 18.9 % (11.5-14.5) H 01/10/18 07:25 Plt Count 237 K/uL (130-400) 01/10/18 07:25 MPV 7.9 fL (7.2-11.7) 01/10/18 07:25 Neut % (Auto) 51.7 % (50.0-75.0) 12/31/17 07:09 Lymph % (Auto) 23.2 % (20.0-40.0) 12/31/17 07:09 [place] % (Auto) 17.0 % (0.0-10.0) H 12/31/17 07:09 Eos % (Auto) 5.2 % (0.0-4.0) H 12/31/17 07:09 Baso % (Auto) 2.9 % (0.0-2.0) H 12/31/17 07:09 Neut # (Auto) 1.6 K/uL (1.8-7.0) L 12/31/17 07:09 Lymph # (Auto) 0.7 K/uL (1.0-4.3) L 12/31/17 07:09 [place] # (Auto) 0.5 K/uL (0.0-0.8) 12/31/17 07:09 Eos # (Auto) 0.2 K/uL (0.0-0.7) 12/31/17 07:09 Baso # (Auto) 0.1 K/uL (0.0-0.2) 12/31/17 07:09 ESR 15 mm/hr (0-15) 01/07/18 06:48 PT 12.0 SECONDS (9.7-12.2) 12/28/17 11:56 INR 1.1 12/28/17 11:56 APTT 36 SECONDS (21-34) H 12/28/17 11:56 D-Dimer, Quantitative < 200.0 ng/mlDDU (0-243) 01/09/18 21:03 Sodium 135 mmol/L (132-148) 01/10/18 07:25 Potassium 4.2 mmol/L (3.6-5.2) 01/10/18 07:25 Chloride 102 mmol/L (98-107) 01/10/18 07:25 Carbon Dioxide 24 mmol/L (22-30) 01/10/18 07:25 Anion Gap 13 (10-20) 01/10/18 07:25 BUN 11 mg/dL (9-20) 01/10/18 07:25 Creatinine 0.7 mg/dL (0.8-1.5) L 01/10/18 07:25 Est GFR ( Amer) > 60 01/10/18 07:25 Est GFR (Non-Af Amer) > 60 01/10/18 07:25 POC Glucose (mg/dL) 144 mg/dL (65-110) H 01/09/18 21:17 Random Glucose 52 mg/dL (75-110) L 01/10/18 07:25 Calcium 8.2 mg/dl (8.6-10.4) L 01/10/18 07:25 Phosphorus 3.3 mg/dL (2.5-4.5) 01/10/18 07:25 Magnesium 1.9 mg/dL (1.6-2.3) 01/10/18 07:25 Total Bilirubin 0.3 mg/dL (0.2-1.3) 01/10/18 07:25 AST 35 U/L (17-59) 01/10/18 07:25 ALT 34 U/L (21-72) 01/10/18 07:25 Alkaline Phosphatase 66 U/L (38-126) 01/10/18 07:25 C-React Prot High Sens 0.74 mg/L (1.00-3.00) L 01/07/18 06:48 Total Protein 5.9 g/dL (6.3-8.3) L 01/10/18 07:25 Albumin 3.1 g/dL (3.5-5.0) L 01/10/18 07:25 Globulin 2.8 gm/dL (2.2-3.9) 01/10/18 07:25 Albumin/Globulin Ratio 1.1 (1.0-2.1) 01/10/18 07:25 25-OH Vitamin D Total 21.8 NG/ML (30.0-100.0) L 12/29/17 08:22 - Hospital Course Hospital Course: HPI (As per admission): Pt is a 47yo M with no PMH admitted for treatment of depression w/psychotic features. Pt reports a wound on the left elbow x2 days. He reports it started out as red and then began burning. He now reports associated white pus draining from the elbow. He denies trauma or previous abrasion in the area. He denies fever, chills, abdominal pain, nausea, vomiting, chest pain, shortness of breath. Hospital course: Patient was originally admitted to the psychiatry unit for depression w/psychotic features, however, patient was transferred to the medicine team due to the left elbow abscess. Surgical team, Dr. Monk, who did an Incision & Drainage + Debridement of Left Elbow Abscess with his surgical team (12/28/17). Infectious disease, Dr. Aguilera was consulted, who recommended appropriate antibiotics for positive wound culture S. Aureus (12/28/17) and then negative wound culture (01/06/18) prior to discharge. Over the course of admission, patient did well without any significant issues. Patient was discharge as per Dr. Lloyd. Patient was discharge with appropriate instruction and prescriptions. Pertinent Imaging/Labs: 12/28/17 MRI- Limited study as the patient could not tolerate gadolinium. Extensive motion artifact. 1. At the level of the olecranon bursa, there is a 1.4 x.4 x 5.7 centimeter lobulated heterogeneous increased STIR signal intensity collection. This is suggestive for an underlying olecranon bursitis with superimposed acute inflammatory and or infectious changes not excluded. Please note no contrast was given on this study, markedly limiting evaluation for abscess formation. Prominent reticulation and edema within the adjacent subcu taneous soft tissues. No gross signal abnormality within the adjacent olecranon to suggest an acute osteomyelitis. 2. Heterogeneity of the visualized marrow within the proximal radius with patchy decreased T1 signal suggestive for hematopoietic marrow reconversion. 3. Small elbow joint effusion. Repeat MRI 01/08/18- Partial tear at the origin of the common extensor tendon group; Extensive infiltration in the olecranon bursa without definite drainable fluid collection consistent with severe olecranon bursitis Initial Wound cx positive for MRSA; repeat negative Left Lower extremity US: No mass or abscess This is a brief summary of event. For a complete course, please refer to the EMR Discharge Exam - Head Exam Head Exam: ATRAUMATIC, NORMOCEPHALIC - Eye Exam Eye Exam: EOMI, Normal appearance - ENT Exam ENT Exam: Mucous Membranes Moist - Respiratory Exam Respiratory Exam: NORMAL BREATHING PATTERN. absent: Decreased Breath Sounds, Prolonged Expiratory Phase, Rales, Wheezes - Cardiovascular Exam Cardiovascular Exam: REGULAR RHYTHM, +S1, +S2 - GI/Abdominal Exam GI & Abdominal Exam: Normal Bowel Sounds, Soft. absent: Diminished Bowel Sounds, Distended, Guarding, Tenderness - Extremities Exam Extremities exam: full ROM Additional comments: Elbow is covered with a 4 x 4 dressing today. Area is not erethematous, no active drainage, no tenderness with palpation - Neurological Exam Neurological exam: Normal Gait - Psychiatric Exam Psychiatric exam: Normal Affect - Skin Skin Exam: Normal Color Discharge Plan - Discharge Medications Prescriptions: RX: ARIPiprazole [Abilify] 15 mg PO DAILY #30 tab RX: Bacitracin Ointment [Bacitracin] 1 gm TOP Q6H PRN #1 tube PRN Reason: Abrasion RX: buPROPion [Wellbutrin] 150 mg PO DAILY #30 tab RX: Clindamycin [Cleocin] 300 mg PO TID 7 Days #21 cap RX: Folic Acid 1 mg PO DAILY 30 Days #30 tab RX: Multivitamins [Hexavitamin] 1 tab PO DAILY 30 Days #30 tab RX: Thiamine [Vitamin B1 Tab] 100 mg PO DAILY 30 Days #30 tab RX: traZODone [Desyrel] 100 mg PO HS PRN #60 tab PRN Reason: Insomnia - Follow Up Plan Condition: STABLE Disposition: HOME/ ROUTINE Instructions: Depression, Adult (DC), Olecranon Bursitis (DC) Additional Instructions: Please discharge patient home Please take Clindamycin 300mg PO three times per day for 7 days. Please take with 2 yogurt per day Please continue with the following medications: 1. Folic 1mg PO daily 2. Thiamine 100mg PO daily 3. Multivitamin 1 tab PO daily 4. Abilify 15mg PO daily 5. Wellbutrin 150mg PO daily 6. Trazadone 50mg PO HS PRN Please follow with the surgical clinic at [facility] in 1-2 weeks, Please establish primary care at the [facility] in 1-2 weeks, Please follow up with your psychiatrist as needed or follow up [facility] Please take care Referrals: [facility] [Provider Group] - 1 Week (Please refer to the 1 week ) [facility] [Outside] - 1 Week (Please follow up in 1 week ) aRy Hollis MD [Staff Provider] - 1 Week (Please follow up with surgical team at the [facility], ) Nic Lloyd MD [Staff Provider] - () <Nahun Nicholson - Last Filed: 01/11/18 13:56> Provider - Provider Date of Admission: 12/24/17 10:25 Attending physician: Nahun Nicholson DO Hospital Course - Lab Results Lab Results: Micro Results 01/06/18 12:14 Abscess - Elbow Gram Stain - Final 01/06/18 12:14 Abscess - Elbow Wound Culture - Final No Growth 12/28/17 18:18 Abscess - Elbow-Left Gram Stain - Final 12/28/17 18:18 Abscess - Elbow-Left Wound Culture - Final Staphylococcus Aureus 12/28/17 22:47 Naris MRSA Culture - Final MRSA NOT DETECTED 12/24/17 19:42 Elbow - Left Gram Stain - Final 12/24/17 19:42 Elbow - Left Wound Culture - Final Methicillin Resistant S Aureus Most Recent Lab Values WBC 3.4 K/uL (4.8-10.8) L 01/11/18 07:05 RBC 4.28 Mil/uL (4.40-5.90) L 01/11/18 07:05 Hgb 11.8 g/dL (12.0-18.0) L 01/11/18 07:05 Hct 35.9 % (35.0-51.0) 01/11/18 07:05 MCV 83.8 fL (80.0-94.0) 01/11/18 07:05 MCH 27.7 pg (27.0-31.0) 01/11/18 07:05 MCHC 33.0 g/dL (33.0-37.0) 01/11/18 07:05 RDW 19.1 % (11.5-14.5) H 01/11/18 07:05 Plt Count 252 K/uL (130-400) 01/11/18 07:05 MPV 7.4 fL (7.2-11.7) 01/11/18 07:05 Neut % (Auto) 51.7 % (50.0-75.0) 12/31/17 07:09 Lymph % (Auto) 23.2 % (20.0-40.0) 12/31/17 07:09 [place] % (Auto) 17.0 % (0.0-10.0) H 12/31/17 07:09 Eos % (Auto) 5.2 % (0.0-4.0) H 12/31/17 07:09 Baso % (Auto) 2.9 % (0.0-2.0) H 12/31/17 07:09 Neut # (Auto) 1.6 K/uL (1.8-7.0) L 12/31/17 07:09 Lymph # (Auto) 0.7 K/uL (1.0-4.3) L 12/31/17 07:09 [place] # (Auto) 0.5 K/uL (0.0-0.8) 12/31/17 07:09 Eos # (Auto) 0.2 K/uL (0.0-0.7) 12/31/17 07:09 Baso # (Auto) 0.1 K/uL (0.0-0.2) 12/31/17 07:09 ESR 15 mm/hr (0-15) 01/07/18 06:48 PT 12.0 SECONDS (9.7-12.2) 12/28/17 11:56 INR 1.1 12/28/17 11:56 APTT 36 SECONDS (21-34) H 12/28/17 11:56 D-Dimer, Quantitative < 200.0 ng/mlDDU (0-243) 01/09/18 21:03 Sodium 136 mmol/L (132-148) 01/11/18 07:05 Potassium 4.3 mmol/L (3.6-5.2) 01/11/18 07:05 Chloride 101 mmol/L (98-107) 01/11/18 07:05 Carbon Dioxide 23 mmol/L (22-30) 01/11/18 07:05 Anion Gap 16 (10-20) 01/11/18 07:05 BUN 15 mg/dL (9-20) 01/11/18 07:05 Creatinine 0.7 mg/dL (0.8-1.5) L 01/11/18 07:05 Est GFR ( Amer) > 60 01/11/18 07:05 Est GFR (Non-Af Amer) > 60 01/11/18 07:05 POC Glucose (mg/dL) 80 mg/dL (65-110) 01/11/18 11:11 Random Glucose 75 mg/dL (75-110) 01/11/18 07:05 Calcium 8.7 mg/dl (8.6-10.4) 01/11/18 07:05 Phosphorus 3.9 mg/dL (2.5-4.5) 01/11/18 07:05 Magnesium 2.0 mg/dL (1.6-2.3) 01/11/18 07:05 Total Bilirubin 0.3 mg/dL (0.2-1.3) 01/11/18 07:05 AST 39 U/L (17-59) 01/11/18 07:05 ALT 31 U/L (21-72) 01/11/18 07:05 Alkaline Phosphatase 61 U/L (38-126) 01/11/18 07:05 C-React Prot High Sens 0.74 mg/L (1.00-3.00) L 01/07/18 06:48 Total Protein 6.4 g/dL (6.3-8.3) 01/11/18 07:05 Albumin 3.5 g/dL (3.5-5.0) 01/11/18 07:05 Globulin 2.9 gm/dL (2.2-3.9) 01/11/18 07:05 Albumin/Globulin Ratio 1.2 (1.0-2.1) 01/11/18 07:05 25-OH Vitamin D Total 21.8 NG/ML (30.0-100.0) L 12/29/17 08:22 Attending/Attestation - Attestation I have personally seen and examined this patient.: Yes I have fully participated in the care of the patient.: Yes I have reviewed all pertinent clinical information, including history, physical exam and plan: Yes Notes (Text): 01/11/18 13:56 Medical attending: Patient was seen and examined by me, the above note by the medical assistant prn and agree with the above The patient will need to continue with the oral antibiotics. She he should also continue the medications that have been advised per psychiatry. Prescriptions as documented above have been provided. On physical exam the patient did not have any pain with flexion extension of the elbow. The area of the elbow was dry and intact. There is no active drainage when I saw her. Nahun Nicholson
--- NOTE | 2018-01-10 16:27 | CP.PCM.PN ---
Subjective - Date & Time of Evaluation Date of Evaluation: 01/10/18 Time of Evaluation: 08:00 - Subjective Subjective: improving d/c on po rx follow up out pt Objective - Vital Signs/Intake and Output Vital Signs (last 24 hours): Temp Pulse Resp BP Pulse Ox 98.5 F 74 20 112/78 100 01/10/18 07:36 01/10/18 07:36 01/10/18 07:36 01/10/18 07:36 01/10/18 07:36 Intake and Output: 01/10/18 01/10/18 06:59 18:59 Intake Total 400 Balance 400 - Medications Medications: Current Medications Acetaminophen (Tylenol 325mg Tab) 650 mg PO Q6 PRN PRN Reason: Pain, moderate (4-7) Last Admin: 01/09/18 17:58 Dose: 650 mg Aripiprazole (Abilify) 15 mg PO DAILY [facility] Last Admin: 01/10/18 09:55 Dose: 15 mg Bacitracin (Bacitracin) 1 gm TOP Q6H PRN PRN Reason: Abrasion Last Admin: 12/24/17 18:30 Dose: 1 gm Bupropion HCl (Wellbutrin) 150 mg PO DAILY [facility] Last Admin: 01/10/18 09:56 Dose: 150 mg Emollient Ointment (Vaseline Oint) 5 gm TOP Q4H PRN PRN Reason: Dry skin Last Admin: 01/01/18 12:15 Dose: 5 gm Folic Acid (Folic Acid) 1 mg PO DAILY [facility] Last Admin: 01/10/18 09:52 Dose: 1 mg Gabapentin (Neurontin) 300 mg PO BID [facility] Last Admin: 01/10/18 09:52 Dose: 300 mg Haloperidol (Haldol) 5 mg PO Q4 PRN PRN Reason: Agitation Heparin Sodium (Porcine) (Heparin) 5,000 units SC Q8H [facility] Last Admin: 01/10/18 05:31 Dose: 5,000 units Hydroxyzine HCl (Atarax) 50 mg PO Q6 PRN PRN Reason: Anxiety Clindamycin Phosphate 600 mg/ (Sodium Chloride) 54 mls @ 100 mls/hr IVPB Q8H [facility]; Protocol Last Admin: 01/10/18 13:12 Dose: 100 mls/hr Midazolam HCl (Versed Inj) 2.5 mg IVP ONCE PRN PRN Reason: Anxiety Last Admin: 01/08/18 14:02 Dose: 2.5 mg Multivitamins (Hexavitamin) 1 tab PO DAILY [facility] Last Admin: 01/10/18 09:52 Dose: 1 tab Nicotine (Nicoderm Cq) 1 patch TD DAILY [facility] Last Admin: 01/10/18 09:52 Dose: 1 patch Saccharomyces Boulardii (Florastor) 250 mg PO BID [facility] Last Admin: 01/10/18 09:52 Dose: 250 mg Thiamine HCl (Vitamin B1 Tab) 100 mg PO DAILY [facility] Last Admin: 01/10/18 09:52 Dose: 100 mg Trazodone HCl (Desyrel) 150 mg PO HS PRN PRN Reason: Insomnia Last Admin: 01/09/18 22:28 Dose: 150 mg Vitamin A (Vitamin A & D Oint Ud Foilpak) 1 ea TOP Q8 PRN PRN Reason: Dry skin Last Admin: 01/05/18 09:25 Dose: 1 ea - Labs Labs: 01/10/18 07:25 01/10/18 07:25 PT 12.0 SECONDS (9.7-12.2) 12/28/17 11:56 INR 1.1 12/28/17 11:56 APTT 36 SECONDS (21-34) H 12/28/17 11:56
[2018-01-11 07:09] LABS: HEMOGLOBIN 11.8 g/dL (12.0-18.0); MEAN CELL VOLUME 83.8 fL (80.0-94.0); MEAN CORPUSCULAR HEMOGLOBIN 27.7 pg (27.0-31.0); MEAN PLATELET VOLUME 7.4 fL (7.2-11.7); RBC 4.28 Mil/uL (4.40-5.90); RED CELL DISTRIBUTION WIDTH 19.1 % (11.5-14.5); WHITE BLOOD COUNT 3.4 K/uL (4.8-10.8)
[2018-01-11 07:32] LABS: ALB/GLOB RATIO 1.2 (1.0-2.1); ALBUMIN 3.5 g/dL (3.5-5.0); ALT/SGPT 31 U/L (21-72); AST/SGOT 39 U/L (17-59); BLOOD UREA NITROGEN 15 mg/dL (9-20); CALCIUM 8.7 mg/dl (8.6-10.4); GFR NON-AFRICAN AMERICAN > 60
[2018-01-11 08:03] VITALS: BP 118/75; PULSE 74; TEMP 97.8; O2SAT 96
[2018-01-11] MEDS: Saccharomyces Boulardi 250 mg Cap PO SCH (09:53)
[2018-01-11] MEDS: Multiple Vitamins Tab PO SCH (09:53)
--- NOTE | 2018-01-11 13:44 | CP.PCM.PN ---
Subjective - Date & Time of Evaluation Date of Evaluation: 01/11/18 Time of Evaluation: 08:00 - Subjective Subjective: Surgery: Dr. Lloyd Pt seen and examined. No acute overnight events. States he feels a lot better and pain in the Left elbow has improved. He has full ROM at the elbow and denies other complaints at this time. Denies fevers/chills. Objective - Vital Signs/Intake and Output Vital Signs (last 24 hours): Temp Pulse Resp BP Pulse Ox 97.8 F 74 20 118/75 96 01/11/18 08:02 01/11/18 08:02 01/11/18 08:02 01/11/18 08:02 01/11/18 08:02 Intake and Output: 01/11/18 01/11/18 06:59 18:59 Intake Total 350 310 Balance 350 310 - Medications Medications: Current Medications Acetaminophen (Tylenol 325mg Tab) 650 mg PO Q6 PRN PRN Reason: Pain, moderate (4-7) Last Admin: 01/10/18 18:09 Dose: 650 mg Aripiprazole (Abilify) 15 mg PO DAILY [facility] Last Admin: 01/11/18 09:53 Dose: 15 mg Bacitracin (Bacitracin) 1 gm TOP Q6H PRN PRN Reason: Abrasion Last Admin: 12/24/17 18:30 Dose: 1 gm Bupropion HCl (Wellbutrin) 150 mg PO DAILY [facility] Last Admin: 01/11/18 09:52 Dose: 150 mg Emollient Ointment (Vaseline Oint) 5 gm TOP Q4H PRN PRN Reason: Dry skin Last Admin: 01/01/18 12:15 Dose: 5 gm Folic Acid (Folic Acid) 1 mg PO DAILY [facility] Last Admin: 01/11/18 09:52 Dose: 1 mg Gabapentin (Neurontin) 300 mg PO BID [facility] Last Admin: 01/11/18 09:53 Dose: 300 mg Haloperidol (Haldol) 5 mg PO Q4 PRN PRN Reason: Agitation Heparin Sodium (Porcine) (Heparin) 5,000 units SC Q8H [facility] Last Admin: 01/11/18 05:00 Dose: Not Given Hydroxyzine HCl (Atarax) 50 mg PO Q6 PRN PRN Reason: Anxiety Clindamycin Phosphate 600 mg/ (Sodium Chloride) 54 mls @ 100 mls/hr IVPB Q8H [facility]; Protocol Last Admin: 01/11/18 05:50 Dose: 100 mls/hr Midazolam HCl (Versed Inj) 2.5 mg IVP ONCE PRN PRN Reason: Anxiety Last Admin: 01/08/18 14:02 Dose: 2.5 mg Multivitamins (Hexavitamin) 1 tab PO DAILY [facility] Last Admin: 01/11/18 09:53 Dose: 1 tab Nicotine (Nicoderm Cq) 1 patch TD DAILY [facility] Last Admin: 01/11/18 09:54 Dose: 1 patch Saccharomyces Boulardii (Florastor) 250 mg PO BID [facility] Last Admin: 01/11/18 09:53 Dose: 250 mg Thiamine HCl (Vitamin B1 Tab) 100 mg PO DAILY [facility] Last Admin: 01/11/18 09:53 Dose: 100 mg Trazodone HCl (Desyrel) 150 mg PO HS PRN PRN Reason: Insomnia Last Admin: 01/10/18 23:58 Dose: 150 mg Vitamin A (Vitamin A & D Oint Ud Foilpak) 1 ea TOP Q8 PRN PRN Reason: Dry skin Last Admin: 01/05/18 09:25 Dose: 1 ea - Labs Labs: 01/11/18 07:05 01/11/18 07:05 PT 12.0 SECONDS (9.7-12.2) 12/28/17 11:56 INR 1.1 12/28/17 11:56 APTT 36 SECONDS (21-34) H 12/28/17 11:56 - Constitutional Appears: Well, No Acute Distress - Eye Exam Eye Exam: Normal appearance - ENT Exam ENT Exam: Mucous Membranes Moist - Respiratory Exam Respiratory Exam: NORMAL BREATHING PATTERN - Cardiovascular Exam Cardiovascular Exam: RRR - GI/Abdominal Exam GI & Abdominal Exam: Soft. absent: Tenderness - Extremities Exam Additional comments: left elbow with I&D incision completely closed; surrounding erythema improved - Neurological Exam Neurological Exam: Alert, Awake, Oriented x3 - Skin Skin Exam: Dry, Warm Assessment and Plan - Assessment and Plan (Free Text) Assessment: 47M with L elbow abscess s/p I&D Plan: - ok to DC from surgical standpoint - no further surgical intervention Bonifacio
== END 2018-01-11 13:41 | disposition home or self-care (01) | DRG 740 ==
LOC: C.ER 10:19 → C.5E 10:25 → C.6T 12-27 21:48 → C.3T 01-05 12:05 → C.6T 01-11 12:35
PROVIDERS: ADMIT Hospitalist; ATTEND Hospitalist
PROC: 0JBH0ZZ Excision of Left Lower Arm Subcutaneous Tissue and Fascia, Open Approach (ICD-10-PCS; 2017-12-28)
PROC: 0J9H0ZZ Drainage of Left Lower Arm Subcutaneous Tissue and Fascia, Open Approach (ICD-10-PCS; principal; 2017-12-28 18:15)
DX: F33.3 Major depressive disorder, recurrent, severe with psychotic symptoms (principal); R45.851 Suicidal ideations; Z91.19 Patient's noncompliance with other medical treatment and regimen; L02.414 Cutaneous abscess of left upper limb; F41.9 Anxiety disorder, unspecified; F17.210 Nicotine dependence, cigarettes, uncomplicated; F51.05 Insomnia due to other mental disorder; L03.114 Cellulitis of left upper limb; M70.22 Olecranon bursitis, left elbow; M71.129 Other infective bursitis, unspecified elbow; Z98.84 Bariatric surgery status; K21.9 Gastro-esophageal reflux disease without esophagitis

== ENCOUNTER 2018-01-23 19:27 | Inpatient (IN) | payer MEDICAID ==
[2018-01-23 19:27] VITALS: BMI 31.7
[2018-01-23 19:44] VITALS: O2SAT 97
--- NOTE | 2018-01-23 19:50 | C.PDOC ---
History Of Present Illness 47 y/o male pt presents to the ER from [place] for admission for depression and SI with plan. Pt denies any physical complaint and will be admitted under Dr. Sexton. Time Seen by Provider: 01/23/18 19:29 Chief Complaint (Nursing): Psychiatric Evaluation History Per: Patient History/Exam Limitations: no limitations Current Symptoms Are (Timing): Still Present Associated Symptoms: Depression, Suicidal Thoughts, Suicidal Plan Past Medical History Reviewed: Historical Data, Nursing Documentation, Vital Signs Vital Signs: Last Vital Signs Temp 98.3 F 01/23/18 19:37 Pulse 73 01/23/18 19:37 Resp 20 01/23/18 19:37 BP 135/79 01/23/18 19:37 Pulse Ox 97 01/23/18 19:37 - Medical History PMH: Back Problems, Depression Surgical History: Hernia Repair - [facility] Procedures DRAINAGE OF L LOW ARM SUBCU/FASCIA, OPEN APPROACH (12/24/17) EXCISION OF L LOW ARM SUBCU/FASCIA, OPEN APPROACH (12/24/17) GROUP PSYCHOTHERAPY (12/08/17) INDIVIDUAL PSYCHOTHERAPY, BEHAVIORAL (12/08/17) Family History: States: Unknown Family Hx - Social History Hx Alcohol Use: Yes Hx Substance Use: No Review Of Systems Except As Marked, All Systems Reviewed And Found Negative. Constitutional: Negative for: Fever, Chills Gastrointestinal: Negative for: Nausea, Vomiting, Abdominal Pain, Diarrhea Genitourinary: Negative for: Dysuria, Frequency, Incontinence Neurological: Negative for: Weakness, Numbness Psych: Positive for: Depression, Suicidal ideation (with plan) Physical Exam - Physical Exam Appears: Well, Non-toxic, No Acute Distress Head: Atraumatic, Normacephalic Eye(s): bilateral: PERRL, EOMI, Other (conjunctiva clear ) Oral Mucosa: Moist Throat: No Erythema, No Exudate, Other (uvula midline) Chest: Symmetrical Cardiovascular: Rhythm Regular, No Murmur, Other (normal S1, S2) Respiratory: No Rales, No Rhonchi, No Wheezing, Other (good air movement, lungs CTA b/l ) Gastrointestinal/Abdominal: Soft, No Tenderness, No Distention, No Guarding, No Rebound Extremity: Bilateral: Atraumatic, Normal Color And Temperature Pulses: Left Dorsalis Pedis: Normal (2+), Right Dorsalis Pedis: Normal (2+) Neurological/Psych: Oriented x3, Normal Motor (5/5 ), Normal Sensation, Other (GCS 15, CN 2-12 intact) Gait: Steady ED Course And Treatment O2 Sat by Pulse Oximetry: 97 (RA) Pulse Ox Interpretation: Normal Medical Decision Making Medical Decision Making: Patient will be admitted under Dr. Sexton Disposition - Disposition Disposition: HOSPITALIZED Disposition Time: 19:55 Condition: STABLE - Clinical Impression Clinical Impression: Suicidal ideation, Depression - Scribe Statement The provider has reviewed the documentation as recorded by the Boom Drew Do Provider Attestation: All medical record entries made by the Boom were at my direction and personally dictated by me. I have reviewed the chart and agree that the record accurately reflects my personal performance of the history, physical exam, medical decision making, and the department course for this patient. I have also personally directed, reviewed, and agree with the discharge instructions and disposition.
--- NOTE | 2018-01-24 12:54 | PCM.PSYCH ---
Initial Psychiatric Evaluation - Initial Psychiatric Evaluation Type of Admission: Voluntary Legal Status: Capacity History of Present Illness and Precipitating Events: Pt is a 47 year old male who is and has 2 children that are 24 and 28 years old. He has been unemployed for the past 1 year. He was driving a tow truck. He is currently living with his sister. Pt was transferred to [facility] for psychiatric admission for depression and suicidal ideation with plan to cut on his wrist with a knife. Patient reported that he was diagnosed with major depressive disorder at [facility] 1 month ago, was started on medications but stopped taking as he was feeling better. He has trouble sleeping because he hears voices and see shadows at night. During the day he sometimes hears the voices as well. His sleep is decreased but there is no change in appetite or weight. Patient reported that he is depressed about not seeing his children because they live in [place] and he is not in contact with them as they do not want to speak with him.. He is feeling hopeless, helpless, and worthless. He reports suicidal ideations with a plan to cut his wrists. He almost had a suicide attempt one time in the past but was stopped by a friend. He denies any homicidal ideations. Patient was drinking about 1 case of beer daily. Last used about 4 months ago. Patient denied use of any other substances including heroin, cocaine, and cannabis. He smokes 1 pack of cigarettes a day. No previous history of detox or rehabs. Patient was admitted twice for psychiatric reasons and this is his third admission. Patient was born in [place] and has 10th grade of education. Patient is not working for last 2 years. Currently he lives with his sister who is also supporting him. He is status post for last 4 years. Has 2 grownup children. Current Medications: Active Medications Generic Name Dose Route Start Last Admin Trade Name Freq PRN Reason Stop Dose Admin Haloperidol 5 mg 01/24/18 18:00 Haldol PO BID [facility] Hydroxyzine HCl 25 mg 01/23/18 21:05 Atarax PO Q6 PRN Anxiety Nicotine 1 patch 01/24/18 13:00 Nicoderm Cq TD DAILY [facility] Sertraline HCl 50 mg 01/24/18 13:00 Zoloft PO DAILY [facility] Trazodone HCl 50 mg 01/23/18 22:00 01/23/18 21:20 Desyrel PO 50 mg HS [facility] Administration Past Psychiatric History - Past Psychiatric History Previous Treatment History: Inpatient Prior Psychiatric Treatment: [facility] History of Abuse: None reported History of ETOH/Drug Use: See HPI History of Family Illness: Reported his knees was 17 years of age committed suicide 4 years ago. Pertinent Medical Hx (Current Medical&Sleep Prob, Allergies): Allergies Allergy/AdvReac Type Severity Reaction Status Date / Time ibuprofen Allergy ITCHING Verified 12/24/17 10:24 naproxen [From Naprosyn] Allergy ITCHING Verified 12/24/17 10:24 ARIPiprazole [Abilify] 15 mg PO DAILY #30 tab 12/30/17 buPROPion [Wellbutrin] 150 mg PO DAILY #30 tab 12/30/17 traZODone [Desyrel] 100 mg PO HS PRN #60 tab 12/30/17 Bacitracin Ointment [Bacitracin] 1 gm TOP Q6H PRN #1 tube 01/10/18 Clindamycin [Cleocin] 300 mg PO TID 7 Days #21 cap 01/10/18 Folic Acid 1 mg PO DAILY 30 Days #30 tab 01/10/18 Multivitamins [Hexavitamin] 1 tab PO DAILY 30 Days #30 tab 01/10/18 Thiamine [Vitamin B1 Tab] 100 mg PO DAILY 30 Days #30 tab 01/10/18 Review of Systems - Psychiatric Psychiatric: As Per HPI, Depression, Hopelessness, Suicidal Ideation Mental Status Examination - Personal Presentation Personal Presentation: Looks stated age - Affect Affect: Depressed - Motor Activity Motor Activity: Calm - Reliability in Providing Information Reliability in Providing Information: Fair - Speech Speech: Organized - Mood Mood: Depressed - Formal Thought Process Formal Thought Process: No Impairment - Hallucinations/Delusions Hallucinations: Other (None reported) Delusions: Other - Obsessions/Compulsions Obsessions: None Compulsions: None - Cognitive Functions Orientation: Person, Place, Situation, Time Sensorium: Alert Attention/Concentration: Attentive Abstract Thinking: [place] Estimate of Intelligence: Average Judgement: Intact, as evidence by: Insight regarding need for hospitalization Memory: Recent intact, as evidence by: Ability to recall events of the day, Remote intact, as evidenced by: Ability to recall historical events - Risk Risk: Withdrawal, Diminished functioning - Strength & Assets Inventory Strength & Assets Inventory: Family support, Cooperative - Limitations Limitations: Other (Lives with sister) DSM 5 DX - DSM 5 DSM 5 Diagnosis: Major depressive disorder recurrent severe with psychotic features. Alcohol use disorder in early remission - Recommended/Plan of Treatment Treatment Recommendations and Plan of Treatment: Patient education. Supportive therapy. CBT for relapse prevention. MO for abstinence. We will start sertraline and Haldol. Other as needed medication. Projected ELOS: 8-10 days - Smoking Cessation Smoking Cessation Initiated: Yes
--- NOTE | 2018-01-25 14:17 | PCM.PYCHPN ---
Psychiatric Progress Note - Psychiatric Progress Note Medication Change: Yes Medical Record Reviewed: Yes Mental Status Examination - Cognitive Function Orientation: Person, Place, Situation, Time - Mood Mood: Depressed - Affect Affect: Depressed - Formal Thought Process Formal Thought Process: No Impairment
--- NOTE | 2018-01-25 14:31 | PCM.BM ---
<FabianDina - Last Filed: 01/25/18 14:29> Treatment Plan Problems - Problems identified on initial assessmt Suicidal Ideations Date Initiated: 01/25/18 Time Initiated: 14:31 Assessment reference: NA Status: Active Treatment assets and liabiliti Patient Assests: cooperative, insightful, motivated, self-reliant, good past tx response, cognitively intact Patient Liabilities: live alone, financial problems - Milieu Protocol Maintain good personal hygiene: daily Encourage regular showers, daily Remind patient to perform daily oral care, daily Assist patient to perform ADL's Conduct patient checks and document Observation sheet: Q15 minutes Maintain personal safety: every shift Educate patient to report safety concerns to staff, every shift Monitor environment for contraband/sharps Medication safety: Monitor for expected outcome, potential side effects: every shift, Assess barriers to learning: every shift, Assess readiness for medication education: every shift Milieu Narrative: Patient education. Supportive therapy. CBT for relapse prevention. WA for abstinence. We will start sertraline and Haldol. Other as needed medication. Discharge/Continuing Care - Treatment Team Participation Patient/Family/SO Statement: Patient education. Supportive therapy. CBT for relapse prevention. WA for abstinence. We will start sertraline and Haldol. Other as needed medication. <Awilda Pimentel - Last Filed: 01/25/18 15:18> Family Contact Family involvement: Patient does not wish Family/SO involvement Family contact: Patient declines to allow family contact at present - Goals for Treatment Patient goals for treatment: "I want to be referred to an outpatient program in [place], [place]." Discharge/Continuing Care - Education Needs Education Needs: Patient Medication, Patient Diagnosis/Disease Process, Patient Coping Skills, Patient Placement options, Patient Community resources - Discharge Discharge Criteria: Free of Suicidal thoughts, Normal sleep pattern, Ability to care for self, Reduction of target symptoms Discharge to:: Home, With Family - Treatment Team Participation Discussed with Family/SO: No Was Patient/Family/SO present at Treatment Team Meeting: Yes
[2018-01-28 06:49] VITALS: BP 119/72; PULSE 87; RESP 20; TEMP 98
--- NOTE | 2018-01-28 09:46 | PCM.PYCHDC ---
Mental Status Examination - Mental Status Examination Orientation: Person, Place, Situation, Time Memory: Intact Mood: Anxious Affect: Constricted Speech: Appropriate Attention: WNL Concentration: WNL Association: WNL Fund of Knowledge: WNL Formal Thought Process: No Impairment Suicidal Ideation: No Current Homicidal Ideation?: No Discharge Summary - Discharge Note Consultations:: List each consultation separately and include: 1. Reason for request. 2. Findings. 3. Follow-up Summary of Hospital Course include:: 1. Description of specific treatment plan utilized for patients during their course of treatmen. 2. Summarize the time- course for resolution of acute symptoms and/or regressed behaviors. 3. Describe issues identified and worked on during hospitalization. 4. Describe medication utilized. 5. Describe medical problems identified and treated. 6. Reassessment of suicide risk Summary of Hospital Course: Hospital course: The pt was admitted and started on treatment with psychotherapy, support, psychoeducation and medications. CA and CBT used. The pt attended groups and activities, as well as milieu therapy. All the risks and benefits of medications are discussed and the patient understood and agreed. The pt improved with the treatments provided. After care discussed with the patient. He will go to [facility]. - Final Diagnosis (DSM 5) Condition upon Discharge: STABLE DSM 5: Major depressive disorder recurrent severe with psychotic features. Alcohol use disorder in early remission Disposition: HOME/ ROUTINE Follow-up Treatment Plan: Continue below medications after discharge. Follow after care plan as discussed. Use relapse prevention skills Return to ER or call 911 if suicidal, homicidal or symptoms relapse. Stay away from stress, alcohol and drugs. See primary doctor regularly and get labs. Prescriptions/Medication Reconciliation: Sertraline [Zoloft] 100 mg PO DAILY #30 tab traZODone [Desyrel] 150 mg PO HS #30 tab
== END 2018-01-28 12:49 | disposition home or self-care (01) | DRG 430 ==
LOC: C.ER 19:27 → C.9E 19:52 → C.5E 20:12
PROC: GZ56ZZZ Individual Psychotherapy, Supportive (ICD-10-PCS; principal; 2018-01-23)
DX: F33.3 Major depressive disorder, recurrent, severe with psychotic symptoms (principal); F17.210 Nicotine dependence, cigarettes, uncomplicated; F10.11 Alcohol abuse, in remission; R45.851 Suicidal ideations

== ENCOUNTER 2018-03-11 03:22 | Inpatient (IN) | payer MEDICAID ==
[2018-03-11 03:22] VITALS: BMI 31.7
--- NOTE | 2018-03-11 03:28 | C.PDOC ---
History Of Present Illness The patient presents to the ED as a psychiatric transfer from [facility]. Patient was medically cleared and accepted by Dr. Amor for major depression prior to ED arrival. Patient denies any other complaints at this time. Time Seen by Provider: 03/11/18 03:27 Chief Complaint (Nursing): Psychiatric Evaluation History Per: Patient History/Exam Limitations: no limitations Onset/Duration Of Symptoms: Hrs Current Symptoms Are (Timing): Still Present Suicide/Self Injury Attempted (Context): None Associated Symptoms: Depression Additional History Per: Patient Past Medical History Reviewed: Historical Data, Nursing Documentation, Vital Signs - Medical History PMH: Back Problems, Depression, Kidney Stones, Chronic Kidney Disease Surgical History: Hernia Repair - [facility] Procedures DRAINAGE OF L LOW ARM SUBCU/FASCIA, OPEN APPROACH (12/24/17) EXCISION OF L LOW ARM SUBCU/FASCIA, OPEN APPROACH (12/24/17) GROUP PSYCHOTHERAPY (12/08/17) INDIVIDUAL PSYCHOTHERAPY, BEHAVIORAL (12/08/17) INDIVIDUAL PSYCHOTHERAPY, SUPPORTIVE (01/23/18) Family History: States: Unknown Family Hx - Social History Hx Alcohol Use: No Hx Substance Use: No Review Of Systems Constitutional: Negative for: Fever, Chills Cardiovascular: Negative for: Chest Pain, Palpitations Respiratory: Negative for: Cough, Shortness of Breath Skin: Negative for: Rash, Lesions, Jaundice, Bruising Psych: Positive for: Other (psychiatric transfer ) Physical Exam - Physical Exam Appears: Non-toxic, No Acute Distress Skin: Warm, Dry Head: Normacephalic Eye(s): bilateral: Normal Inspection Oral Mucosa: Moist Neck: Supple Chest: Symmetrical, No Deformity Extremity: Normal ROM Neurological/Psych: Oriented x3 ED Course And Treatment O2 Sat by Pulse Oximetry: 98 (on RA) Pulse Ox Interpretation: Normal Disposition Discussed With : Supriya Amor Comment: accepted the pt onher service and took over the care at 3:41 AM Doctor Will See Patient In The: Hospital Counseled Patient/Family Regarding: Studies Performed, Diagnosis - Disposition Disposition: HOSPITALIZED Disposition Time: 03:28 Condition: FAIR - POA Present On Arrival: None - Clinical Impression Clinical Impression: Major depression - Scribe Statement The provider has reviewed the documentation as recorded by the Scribe (Judy Hollis) Provider Attestation: All medical record entries made by the Scribe were at my direction and personally dictated by me. I have reviewed the chart and agree that the record accurately reflects my personal performance of the history, physical exam, medical decision making, and the department course for this patient. I have also personally directed, reviewed, and agree with the discharge instructions and disposition. Decision To Admit - Pt Status Changed To: Hospital Disposition Of: Inpatient - Admit Certification Admit to Inpatient:: After my assessment, the patient will require hospitalization for at least two midnights. This is because of the severity of symptoms shown, intensity of services needed, and/or the medical risk in this patient being treated as an outpatient. - InPatient: Physician Admission Certification: I certify that this patient requires 2 or more midnights of care for the following reason:: After my assessment, the patient will require hospitalization for at least two midnights. This is because of the severity of symptoms shown, intensity of services needed, and/or the medical risk in this patient being treated as an outpatient. - . Bed Request Type: Psychiatry Admitting Physician: Supriya Amor Patient Diagnosis: Major depression
--- NOTE | 2018-03-11 04:15 | PCM.BM ---
<Mainor Lundberg Melanie - Last Filed: 03/11/18 04:11> Treatment Plan Problems - Problems identified on initial assessmt Suicidal Ideation Date Initiated: 03/11/18 Time Initiated: 04:15 Assessment reference: NA Status: Monitor Ineffective Coping Date Initiated: 03/11/18 Time Initiated: 04:15 Assessment reference: NA Status: Active Treatment assets and liabiliti Patient Assests: cooperative, motivated, self-reliant, good past tx response, cognitively intact Patient Liabilities: financial problems, poor support system - Milieu Protocol Maintain good personal hygiene: daily Encourage regular showers, daily Remind patient to perform daily oral care, every shift Assist patient to perform ADL's Conduct patient checks and document Observation sheet: Q15 minutes Maintain personal safety: every shift Educate patient to report safety concerns to staff, every shift Monitor environment for contraband/sharps Medication safety: Monitor for expected outcome, potential side effects: every shift, Assess barriers to learning: every shift, Assess readiness for medication education: every shift <Crispin Owusu - Last Filed: 03/15/18 10:38> - Diagnosis (1) Major depression Status: Acute Interventions: 03/15/18 10:38 * Assess/adjust medications daily and /or as needed * See patient on an individual basis 7x/week to assess symptoms of depression * Monitor for side effects & effectiveness of medications * <Alis Hair - Last Filed: 03/15/18 11:39> Family Contact Family involvement: Family/SO is involved Family contact: Patient declines to allow family contact at present - Goals for Treatment Patient goals for treatment: "I need an outpatient program." Discharge/Continuing Care - Education Needs Education Needs: Patient Medication, Patient Coping Skills - Discharge Discharge Criteria: Tolerates medication w/o severe side effects, Reduction of target symptoms Discharge to:: Home, With Family - Treatment Team Participation Discussed with Family/SO: No Was Patient/Family/SO present at Treatment Team Meeting: Yes
--- NOTE | 2018-03-11 10:29 | PCM.PSYCH ---
Initial Psychiatric Evaluation - Initial Psychiatric Evaluation Type of Admission: Voluntary Legal Status: Capacity Chief Complaint (in patient's own words): I was feeling depressed and suicidal History of Present Illness and Precipitating Events: This is a 47 years old male, who is currently unemployed and homeless, was transferred from [facility], because of depressed mood and suicidal ideation. Patient has a long history of inpatient psychiatric hospitalizations he was just discharged from [facility] (Former[facility]) a few months ago. As per the patient he stopped taking medication and gradually became increasingly depressed and yesterday he developed suicidal ideation and so he went to the [facility] to get help. Today he was transferred to the [facility] for further stabilization. He reports depressed mood, at times feelings of hopelessness and helplessness, poor energy and poor sleep. He reports poor appetite and suicidal ideation. However he denies any auditory or visual hallucinations or any paranoia. He denies any irritability, agitation and racing thoughts. He also denies any drinking or drugs. Past Medical History None reported Current Medications: Active Medications Generic Name Dose Route Start Last Admin Trade Name Rodriguez PRN Reason Stop Dose Admin Influenza Virus Vaccine 60 mcg 03/12/18 10:00 Flucelvax Quad [id number] Syr IM 03/12/18 10:01 .ONCE ONE Nicotine 1 patch 03/11/18 10:00 03/11/18 10:16 Nicoderm Cq TD 1 patch DAILY SOWMYA Administration Pneumococcal Polyvalent Vaccine 0.5 ml 03/12/18 10:30 Pneumovax 23 Vaccine IM 03/12/18 10:31 .ONCE ONE Past Psychiatric History - Past Psychiatric History Previous Treatment History: Inpatient Pertinent Medical Hx (Current Medical&Sleep Prob, Allergies): Allergies Allergy/AdvReac Type Severity Reaction Status Date / Time aspirin Allergy URTICARIA Verified 03/11/18 03:32 ibuprofen Allergy ITCHING Verified 03/11/18 03:32 naproxen [From Naprosyn] Allergy ITCHING Verified 03/11/18 03:32 Eliquis 1 tab PO BID 03/11/18 Review of Systems - Review of Systems All systems: reviewed and no additional remarkable complaints except - Psychiatric Psychiatric: Anxiety, Depression, Irritability, Suicidal Ideation Mental Status Examination - Personal Presentation Personal Presentation: Looks stated age - Affect Affect: Constricted, Depressed - Motor Activity Motor Activity: Calm - Reliability in Providing Information Reliability in Providing Information: Good - Speech Speech: Organized - Mood Mood: Depressed, Anxious - Formal Thought Process Formal Thought Process: No Impairment - Obsessions/Compulsions Obsessions: No Compulsions: No - Cognitive Functions Orientation: Person, Place, Situation, Time Sensorium: Alert Attention/Concentration: Attentive Abstract Thinking: [place] Estimate of Intelligence: Below average Judgement: Imparied, as evidence by: Poor judgement, Imparied, as evidence by: Lack of insight into illness - Risk Risk: Suicidal, Diminished functioning - Limitations Limitations: Living alone DSM 5 DX - DSM 5 DSM 5 Diagnosis: Major depressive disorder recurrent severe without psychotic features - Recommended/Plan of Treatment Treatment Recommendations and Plan of Treatment: Major depressive disorder recurrent severe without psychotic features CBT Psychoeducation Supportive therapy and group therapy Hydroxyzine for anxiety Trazodone for insomnia Effexor for depression Neurontin for augmentation
[2018-03-12] MEDS ORDERED: Influenza Vaccine 60 mcg/0.5 mL SYR (4YR UP) IM ONE (10:00)
[2018-03-12] MEDS ORDERED: Pneumococcal 23-Valent Vaccine IM ONE (10:30)
--- NOTE | 2018-03-14 23:58 | PCM.PYCHPN ---
Psychiatric Progress Note - Psychiatric Progress Note Patient seen today, length of contact: 15 min Patient Chief Complaint: I was feeling depressed and suicidal Problems Identified/Issues Discussed: Patient was seen and evaluated, chart reviewed and discussed the staff. Patient reports depressed mood and at times feelings of hopelessness and helplessness. He was wearing hospital gown and he remained isolated and withdrawn. As per staff he still appears depressed. However he denies any auditory or visual hallucinations. He is taking medication and denies any side effects. Supportive therapy was given Medication Change: Yes Medical Record Reviewed: Yes Mental Status Examination - Cognitive Function Orientation: Person, Place, Situation, Time Memory: Intact Attention: WNL Concentration: Poor Association: WNL Fund of Knowledge: Poor - Mood Mood: Depressed, Anxious - Affect Affect: Constricted, Depressed - Formal Thought Process Formal Thought Process: No Impairment - Suicidal Ideation Suicidal Ideation: No - Homicidal Ideation Homicidal Ideation: No Goal/Treatment Plan - Goal/Treatment Plan Need for Continued Stay: Remain at risks for inpatient hospitalization, Severe depression anxiety Progress Toward Problem(s) and Goals/Treatment Plan: Major depressive disorder recurrent severe without psychotic features CBT Psychoeducation Supportive therapy and group therapy Hydroxyzine for anxiety Trazodone for insomnia Effexor for depression Neurontin for augmentation
[2018-03-16] MEDS: Venlafaxine 150 mg ER Cap PO SCH (10:07)
--- NOTE | 2018-03-16 13:24 | PCM.PYCHPN ---
Psychiatric Progress Note - Psychiatric Progress Note Patient seen today, length of contact: 15 min Patient Chief Complaint: I m still feeling depressed.' Problems Identified/Issues Discussed: Patient was seen and evaluated, chart reviewed and discussed the staff. As per staff he remained isolated and withdrawn. Patient reports depressed mood but reports some some improvement in the feelings of hopelessness and helplessness. Today he reports of hearing some voices but denies any visual hallucinations. He is taking medication and denies any side effects. Symptoms are improving gradually but he needs to stay longer for further stabilization. Supportive therapy was given Medication Change: Yes Medical Record Reviewed: Yes Mental Status Examination - Cognitive Function Orientation: Person, Place, Situation, Time Memory: Intact Attention: WNL Concentration: Poor Association: WNL Fund of Knowledge: Poor - Mood Mood: Depressed, Anxious - Affect Affect: Constricted, Depressed - Formal Thought Process Formal Thought Process: Hallucinations - Suicidal Ideation Suicidal Ideation: No - Homicidal Ideation Homicidal Ideation: No Goal/Treatment Plan - Goal/Treatment Plan Need for Continued Stay: Remain at risks for inpatient hospitalization, Severe depression anxiety Progress Toward Problem(s) and Goals/Treatment Plan: Major depressive disorder recurrent severe without psychotic features CBT Psychoeducation Supportive therapy and group therapy Hydroxyzine for anxiety Trazodone for insomnia Effexor for depression Neurontin for augmentation - Smoking Cessation Smoking Cessation Initiated: No
[2018-03-17] MEDS: Venlafaxine 150 mg ER Cap PO SCH (09:26)
[2018-03-18] MEDS: Venlafaxine 150 mg ER Cap PO SCH (10:11)
[2018-03-19] MEDS: Venlafaxine 150 mg ER Cap PO SCH (09:46)
--- NOTE | 2018-03-20 00:17 | PCM.PYCHPN ---
Psychiatric Progress Note - Psychiatric Progress Note Patient seen today, length of contact: 15 min Patient Chief Complaint: I m still feeling depressed.' Problems Identified/Issues Discussed: Patient was seen and evaluated, chart reviewed and discussed the staff. Patient reports depressed mood but reports some some improvement in the feelings of hopelessness and helplessness. Today he reports of hearing some voices but denies any visual hallucinations. He is taking medication and denies any side effects. Symptoms are improving gradually but he needs to stay longer for further stabilization. Supportive therapy was given Medication Change: Yes Medical Record Reviewed: Yes Mental Status Examination - Cognitive Function Orientation: Person, Place, Situation, Time Memory: Intact Attention: WNL Concentration: Poor Association: WNL Fund of Knowledge: Poor - Mood Mood: Depressed, Anxious - Affect Affect: Constricted, Depressed - Formal Thought Process Formal Thought Process: Hallucinations - Suicidal Ideation Suicidal Ideation: No - Homicidal Ideation Homicidal Ideation: No Goal/Treatment Plan - Goal/Treatment Plan Need for Continued Stay: Remain at risks for inpatient hospitalization, Severe depression anxiety Progress Toward Problem(s) and Goals/Treatment Plan: Major depressive disorder recurrent severe without psychotic features CBT Psychoeducation Supportive therapy and group therapy Hydroxyzine for anxiety Trazodone for insomnia Effexor for depression Neurontin for augmentation Seroquel for paranoia - Smoking Cessation Smoking Cessation Initiated: No
[2018-03-20] MEDS: Venlafaxine 150 mg ER Cap PO SCH (09:51)
--- NOTE | 2018-03-20 23:08 | PCM.PYCHPN ---
Psychiatric Progress Note - Psychiatric Progress Note Patient seen today, length of contact: 15 min Patient Chief Complaint: I am feeling better but my sleep is still less. Problems Identified/Issues Discussed: Patient seen, chart reviewed, case discussed with the staff. Issues related to illness and treatment were discussed with the patient and staff. Reported compliant with treatment with no adverse effects. Tolerating treatment very well. Reported feeling little better as his sleep is not still good. Mood reported as okay. Affect appropriate. Calm and cooperative Awake, alert and oriented x3. Aftercare discussed with the patient. Denied any delusions, auditory or visual hallucinations, suicidal ideations or homicidal ideations at the time of evaluation. Medical Problems: None reported Diagnostic Results: Reviewed DSM 5 Symptoms Update: Some improvement with treatment. Medication Change: No Medical Record Reviewed: Yes Mental Status Examination - Cognitive Function Orientation: Person, Place, Situation, Time Memory: Intact Attention: WNL Concentration: WNL Association: [facility] Fund of Knowledge: [facility] Decription of patient's judgement and insights: Fair - Mood Mood: Depressed (Much less than before) - Affect Affect: Depressed - Speech Speech: Appropriate - Formal Thought Process Formal Thought Process: No Impairment Psychotic Thoughts and Behaviors: None - Suicidal Ideation Suicidal Ideation: No - Homicidal Ideation Homicidal Ideation: No Goal/Treatment Plan - Goal/Treatment Plan Need for Continued Stay: Remain at risks for inpatient hospitalization, Discharg e may exacerbated symptoms, Severe functional impairment Progress Toward Problem(s) and Goals/Treatment Plan: Some improvement with treatment. Patient education. Supportive therapy. Continue treatment as before. Estimated Date of D/C: 03/22/18 - Smoking Cessation Smoking Cessation Initiated: Yes
[2018-03-21] MEDS: Venlafaxine 150 mg ER Cap PO SCH (09:23)
[2018-03-22] MEDS: Venlafaxine 150 mg ER Cap PO SCH (09:14)
--- NOTE | 2018-03-22 13:46 | PCM.BM ---
<Alis Hair - Last Filed: 03/22/18 13:46> Treatment Plan Problems - Problems identified on initial assessmt Suicidal Ideation Date Initiated: 03/11/18 Time Initiated: 04:15 Assessment reference: NA Status: Monitor Ineffective Coping Date Initiated: 03/11/18 Time Initiated: 04:15 Assessment reference: NA Status: Active Treatment assets and liabiliti Patient Assests: cooperative, motivated, self-reliant, good past tx response, cognitively intact Patient Liabilities: financial problems, poor support system - Milieu Protocol Maintain good personal hygiene: daily Encourage regular showers, daily Remind patient to perform daily oral care, every shift Assist patient to perform ADL's Conduct patient checks and document Observation sheet: Q15 minutes Maintain personal safety: every shift Educate patient to report safety concerns to staff, every shift Monitor environment for contraband/sharps Medication safety: Monitor for expected outcome, potential side effects: every shift, Assess barriers to learning: every shift, Assess readiness for medication education: every shift Milieu Narrative: Some improvement with treatment. Patient education. Supportive therapy. Continue treatment as before. Family Contact Family involvement: Family/SO is involved Family contact: Patient declines to allow family contact at present - Goals for Treatment Patient goals for treatment: "I need an outpatient program." Discharge/Continuing Care - Education Needs Education Needs: Patient Medication, Patient Coping Skills - Discharge Discharge Criteria: Tolerates medication w/o severe side effects, Reduction of target symptoms Discharge to:: Home, With Family - Treatment Team Participation Patient/Family/SO Statement: Some improvement with treatment. Patient education. Supportive therapy. Continue treatment as before. Discussed with Family/SO: No Was Patient/Family/SO present at Treatment Team Meeting: Yes Treatment Plan Review - Problem Suicidal Ideation Time Initiated: :15 Ineffective Coping Time Initiated: 04:15 - Discharge / Continuing Care Discharge to:: Home, With Family Behavioral Health Services: Partial hospital Health Needs: Medications/Rx, Alcohol/Drug treatment <Crispin Owusu - Last Filed: 03/22/18 15:11> - Diagnosis (1) Major depression Status: Acute Interventions: 03/22/18 15:11 * Assess/adjust medications daily and /or as needed * See patient on an individual basis 7x/week to assess symptoms of depression * Monitor for side effects & effectiveness of medications * <Rosario John - Last Filed: 03/22/18 15:16> Treatment Plan Problems - Problems identified on initial assessmt Suicidal Ideation Status: Monitor Treatment Plan Review - Problem Suicidal Ideation Progress toward outcomes: improved Ineffective Coping Progress toward outcomes: improved
--- NOTE | 2018-03-22 15:11 | PCM.PYCHPN ---
Psychiatric Progress Note - Psychiatric Progress Note Patient seen today, length of contact: 15 min Patient Chief Complaint: I m still feeling depressed.' Problems Identified/Issues Discussed: Patient was seen and evaluated, chart reviewed and discussed the staff. Patient reports depressed mood but reports some some improvement in the feelings of hopelessness and helplessness. Today he reports of hearing some voices but denies any visual hallucinations. He is taking medication and denies any side effects. Symptoms are improving gradually but he needs to stay longer for further stabilization. Supportive therapy was given Medication Change: No Medical Record Reviewed: Yes Mental Status Examination - Cognitive Function Orientation: Person, Place, Situation, Time Memory: Intact Attention: WNL Concentration: WNL Association: WN Fund of Knowledge: WN - Mood Mood: Depressed (Much less than before) - Affect Affect: Depressed - Speech Speech: Appropriate - Formal Thought Process Formal Thought Process: No Impairment - Suicidal Ideation Suicidal Ideation: No - Homicidal Ideation Homicidal Ideation: No Goal/Treatment Plan - Goal/Treatment Plan Need for Continued Stay: Remain at risks for inpatient hospitalization, Discharge may exacerbated symptoms, Severe functional impairment Progress Toward Problem(s) and Goals/Treatment Plan: Major depressive disorder recurrent severe without psychotic features CBT Psychoeducation Supportive therapy and group therapy Hydroxyzine for anxiety Trazodone for insomnia Effexor for depression Neurontin for augmentation Seroquel for paranoia Estimated Date of D/C: 03/22/18
[2018-03-23 09:42] VITALS: RESP 20
[2018-03-23] MEDS: Venlafaxine 150 mg ER Cap PO SCH (10:04)
[2018-03-24] MEDS: Venlafaxine 150 mg ER Cap PO SCH (09:53)
--- NOTE | 2018-03-24 23:47 | PCM.PYCHPN ---
Psychiatric Progress Note - Psychiatric Progress Note Patient seen today, length of contact: 15 min Patient Chief Complaint: I m hearing voices .' Problems Identified/Issues Discussed: Patient was seen and evaluated, chart reviewed and discussed the staff. Patient reports some improvement in his mood but still reports feelings of hopelessness and helplessness. As per the staff he remains isolated and withdrawn. He reports of hearing some voices but denies any visual hallucinations. He is taking medication and denies any side effects. Symptoms are improving gradually but he needs to stay longer for further stabilization. Supportive therapy was given Medication Change: Yes Medical Record Reviewed: Yes Mental Status Examination - Cognitive Function Orientation: Person, Place, Situation, Time Memory: Intact Attention: WNL Concentration: Poor Association: WNL Fund of Knowledge: Poor - Mood Mood: Depressed (Much less than before) - Affect Affect: Depressed - Speech Speech: Appropriate - Formal Thought Process Formal Thought Process: Hallucinations - Suicidal Ideation Suicidal Ideation: No - Homicidal Ideation Homicidal Ideation: No Goal/Treatment Plan - Goal/Treatment Plan Need for Continued Stay: Remain at risks for inpatient hospitalization, Discharge may exacerbated symptoms, Severe functional impairment Progress Toward Problem(s) and Goals/Treatment Plan: Major depressive disorder recurrent severe without psychotic features CBT Psychoeducation Supportive therapy and group therapy Hydroxyzine for anxiety Trazodone for insomnia Effexor for depression Neurontin for augmentation Seroquel for paranoia Olanzapine for psychosis Estimated Date of D/C: 03/29/18
[2018-03-25 06:36] VITALS: O2SAT 96
[2018-03-25] MEDS: Venlafaxine 150 mg ER Cap PO SCH (09:52)
[2018-03-26] MEDS: Venlafaxine 150 mg ER Cap PO SCH (09:31)
--- NOTE | 2018-03-26 11:27 | PCM.PYCHPN ---
Psychiatric Progress Note - Psychiatric Progress Note Patient seen today, length of contact: 15 min Patient Chief Complaint: I m still feeling depressed.' Problems Identified/Issues Discussed: Patient was seen and evaluated, chart reviewed and discussed the staff. Patient reports some improvement in his mood but still reports feelings of hopelessness and helplessness. As per the staff he remains isolated and withdrawn. He reports of hearing some voices but denies any visual hallucinations. He is taking medication and denies any side effects. Symptoms are improving gradually but he needs to stay longer for further stabilization. Supportive therapy was given Medication Change: No Medical Record Reviewed: Yes Mental Status Examination - Cognitive Function Orientation: Person, Place, Situation, Time Memory: Intact Attention: WNL Concentration: Poor Association: WNL Fund of Knowledge: Poor - Mood Mood: Depressed (Much less than before) - Affect Affect: Depressed - Speech Speech: Appropriate - Formal Thought Process Formal Thought Process: Hallucinations - Suicidal Ideation Suicidal Ideation: No - Homicidal Ideation Homicidal Ideation: No Goal/Treatment Plan - Goal/Treatment Plan Need for Continued Stay: Remain at risks for inpatient hospitalization, Discharge may exacerbated symptoms, Severe functional impairment Progress Toward Problem(s) and Goals/Treatment Plan: Major depressive disorder recurrent severe without psychotic features CBT Psychoeducation Supportive therapy and group therapy Hydroxyzine for anxiety Trazodone for insomnia Effexor for depression Neurontin for augmentation Seroquel for paranoia Olanzapine for psychosis Estimated Date of D/C: 03/22/18
--- NOTE | 2018-03-27 01:23 | PCM.PYCHPN ---
Psychiatric Progress Note - Psychiatric Progress Note Patient seen today, length of contact: 15 min Patient Chief Complaint: I m still feeling depressed.' Problems Identified/Issues Discussed: Patient was seen and evaluated, chart reviewed and discussed the staff. As per the staff he remains isolated and withdrawn. Patient reports of hearing some voices but denies any visual hallucinations. He reports some improvement in his mood but still reports feelings of hopelessness and helplessness. He is taking medication and denies any side effects. Symptoms are improving gradually but he needs to stay longer for further stabilization. Supportive therapy was given Medication Change: No Medical Record Reviewed: Yes Mental Status Examination - Cognitive Function Orientation: Person, Place, Situation, Time Memory: Intact Attention: WNL Concentration: Poor Association: WNL Fund of Knowledge: Poor - Mood Mood: Depressed (Much less than before) - Affect Affect: Depressed - Speech Speech: Appropriate - Formal Thought Process Formal Thought Process: Hallucinations - Suicidal Ideation Suicidal Ideation: No - Homicidal Ideation Homicidal Ideation: No Goal/Treatment Plan - Goal/Treatment Plan Need for Continued Stay: Remain at risks for inpatient hospitalization, Discharge may exacerbated symptoms, Severe functional impairment Progress Toward Problem(s) and Goals/Treatment Plan: Major depressive disorder recurrent severe without psychotic features CBT Psychoeducation Supportive therapy and group therapy Hydroxyzine for anxiety Trazodone for insomnia Effexor for depression Neurontin for augmentation Seroquel for paranoia Olanzapine for psychosis Estimated Date of D/C: 03/29/18
[2018-03-27] MEDS: Venlafaxine 150 mg ER Cap PO SCH (09:06)
--- NOTE | 2018-03-27 21:26 | PCM.PYCHPN ---
Psychiatric Progress Note - Psychiatric Progress Note Patient seen today, length of contact: 16 min Medication Change: No Medical Record Reviewed: Yes Mental Status Examination - Cognitive Function Orientation: Person, Place, Situation, Time Memory: Intact Attention: WNL Concentration: Poor Association: WNL Fund of Knowledge: Poor - Mood Mood: Depressed (Much less than before) - Affect Affect: Depressed - Speech Speech: Appropriate - Formal Thought Process Formal Thought Process: Hallucinations - Suicidal Ideation Suicidal Ideation: No - Homicidal Ideation Homicidal Ideation: No Goal/Treatment Plan - Goal/Treatment Plan Need for Continued Stay: Remain at risks for inpatient hospitalization, Discharge may exacerbated symptoms, Severe functional impairment Estimated Date of D/C: 03/29/18
[2018-03-28] MEDS: Venlafaxine 150 mg ER Cap PO SCH (09:02)
[2018-03-29] MEDS: Venlafaxine 150 mg ER Cap PO SCH (09:04)
[2018-03-29 09:54] VITALS: BP 101/63; PULSE 96; TEMP 97.3
--- NOTE | 2018-03-29 10:43 | PCM.PYCHDC ---
Mental Status Examination - Mental Status Examination Orientation: Person, Place, Situation, Time Memory: Intact Mood: Neutral Speech: Soft Attention: WNL Concentration: WNL Association: WNL Fund of Knowledge: WNL Formal Thought Process: No Impairment Description of patient's judgement and insight: good, fair Psychotic Thoughts and Behaviors: denies any AVH Suicidal Ideation: No Current Homicidal Ideation?: No Discharge Summary - Discharge Note Reason for Hospitalization: This is a 47 years old male, who is currently unemployed and homeless, was transferred from [facility], because of depressed mood and suicidal ideation. Patient has a long history of inpatient psychiatric hospitalizations he was just discharged from [facility] a few months ago. As per the patient he stopped taking medication and gradually became increasingly depressed and yesterday he developed suicidal ideation and so he went to the [facility] to get help. Today he was transferred to the [facility] for further stabilization. He reports depressed mood, at times feelings of hopelessness and helplessness, poor energy and poor sleep. He reports poor appetite and suicidal ideation. However he denies any auditory or visual hallucinations or any paranoia. He denies any irritability, agitation and racing thoughts. He also denies any drinking or drugs. Consultations:: List each consultation separately and include: 1. Reason for request. 2. Findings. 3. Follow-up Summary of Hospital Course include:: 1. Description of specific treatment plan utilized for patients during their course of treatmen. 2. Summarize the time- course for resolution of acute symptoms and/or regressed behaviors. 3. Describe issues identified and worked on during hospitalization. 4. Describe medication utilized. 5. Describe medical problems identified and treated. 6. Reassessment of suicide risk Summary of Hospital Course: During the course of his stay, patient (pt) started progressively improving and no longer remained irritable, depressed, and suicidal. His mood and anxiety were improved and he started attending groups and meetings and started socializing. Patient denied any feelings of hopelessness, helplessness, and worthlessness, denied any problem with the sleep or appetite, denied suicidal ideation or homicidal ideation. Pt denied any auditory or visual hallucinations. He denied any withdrawal symptoms. Pt was treated with medications along with supportive therapy, milieu therapy and group therapy. Some changes were made in his current medications and patient was discharged on following medications. He tolerated these medications very well and denied any side effects. - Diagnosis (1) Major depression Status: Acute - Final Diagnosis (DSM 5) Condition upon Discharge: FAIR DSM 5: Major depressive disorder recurrent severe without psychotic features Disposition: HOME/ ROUTINE Follow-up Treatment Plan: Followup: He was discharged to the [facility]. Education: Pt was educated and counseled about the risks and benefits of taking and not taking medications. Pt was educated and counseled about the risks of drinking and abusing drugs. Pt was educated and counseled to go to the ER or call 911 if pt develop suicidal ideation or homicidal ideation, worsening of symptoms or severe side effects of the meds. Prescriptions/Medication Reconciliation: Olanzapine [Zyprexa] 5 mg PO BID #60 tablet QUEtiapine [Seroquel] 100 mg PO HS #30 tab traZODone [Desyrel] 200 mg PO HS #30 tab Venlafaxine [Effexor XR] 150 mg PO DAILY #30 cer - Smoking Cessation Smoking Cessation Medication prescribed: No - Antipsychotic Medications Pt discharged on 2 or more routine antipsychotic medications: No
== END 2018-03-29 14:34 | disposition home or self-care (01) | DRG 430 ==
LOC: C.ER 03:22 → C.5E 03:40
PROVIDERS: ADMIT Psychiatry & Neurology Psychiatry; ATTEND Psychiatry & Neurology Psychiatry
PROC: GZHZZZZ Group Psychotherapy (ICD-10-PCS; principal; 2018-03-11)
PROC: GZ56ZZZ Individual Psychotherapy, Supportive (ICD-10-PCS; 2018-03-11)
DX: F33.2 Major depressive disorder, recurrent severe without psychotic features (principal); N18.9 Chronic kidney disease, unspecified; F22 Delusional disorders; F41.9 Anxiety disorder, unspecified; G47.00 Insomnia, unspecified; Z59.0 Homelessness; R45.851 Suicidal ideations